=== PATIENT | male | born 1940 | race Caucasian/White ===

== ENCOUNTER 2020-09-21 12:35 | Outpatient (CLI) | payer MEDICARE, SELFPAY ==
--- NOTE | 2020-09-21 12:42 | USCV_ITS ---
Noe Mcclain Age: 80 Gender: M : 1940 Exam Date: 09/21/2020 13:27 Ordering Phys: Harvey Jimenez DO Technologist: Vani Ward Exam Location: [facility]_ Indication: SYSTOLIC MURMUR BP: 130 / 78 HR: 76 Rhythm: Sinus Technical Quality: Adequate MEASUREMENTS (Male / Female) Normal Values 2D ECHO LV Diastolic Diameter PLAX 5.1 cm 4.2 - 5.9 / 3.9 - 5.3 cm LV Systolic Diameter PLAX 3.5 cm LV Chamber Size 3.7 cm IVS Diastolic Thickness 1.1 cm 0.6 - 1.0 / 0.6 - 0.9 cm IVS Systolic Thickness 1.7 cm LVPW Diastolic Thickness 1.5 cm 0.6 - 1.0 / 0.6 - 0.9 cm LVPW Systolic Thickness 2.1 cm RV Chamber Size 3.0 cm LVOT Diameter 2.0 cm LV Ejection Fraction 2D Teich 59.0 % LV Ejection Fraction MOD 2C 45.9 % LV Ejection Fraction 2C AL 47.3 % LA Diameter 5.6 cm LA Width 4.7 cm LA Height 6.1 cm RA Width 3.9 cm RA Height 3.5 cm Aorta at Sinotubular Diameter 3.5 cm M-MODE LV Diastolic Diameter MM 6.0 cm 4.2 - 5.9 / 3.9 - 5.3 cm LV Systolic Diameter MM 4.2 cm LV Ejection Fraction MM Teich 56.8 % IVS Diastolic Thickness MM 1.4 cm 0.6 - 1.0 / 0.6 - 0.9 cm IVS Systolic Thickness MM 1.8 cm LVPW Diastolic Thickness MM 1.3 cm 0.6 - 1.0 / 0.6 - 0.9 cm LVPW Systolic Thickness MM 1.8 cm RV Diastolic Diameter MM 1.6 cm Aortic Annulus Diameter 4.0 cm LA Ao Ratio MM 1.5 MV E Point Septal Separation 0.7 cm DOPPLER AV Peak Velocity 126.0 cm/s LVOT Peak Velocity 98.0 cm/s AV Area Cont Eq vti 2.5 cm squared AV Area Cont Eq pk 2.5 cm squared MV Area PHT 5.4 cm squared Mitral E to A Ratio 2.1 MV E' Velocity 76.5 cm/s Mitral E to MV E' Ratio 9.7 Mitral E to LV E' Lateral Ratio 9.9 Mitral E to LV E' Septal Ratio 9.6 TR Peak Velocity 349.1 cm/s TR Peak Gradient 48.7 mmHg TR Mean Velocity 269.4 cm/s TR Mean Gradient 33.8 mmHg TR Velocity Time Integral 95.3 cm TV Peak E Velocity 90.0 cm/s Right Atrial Pressure 8.0 mmHg Pulmonary Artery Systolic Pressu 56.7 mmHg PV Peak Velocity 69.0 cm/s RV Acceleration Time 0.1 s RV Ejection Time 0.3 s RV AcT/ET 0.3 FINDINGS Left Ventricle Normal left ventricular cavity size. Normal left ventricular systolic function. No regional wall motion abnormalities. Left ventricular ejection fraction is estimated at 56 %. Grade III/IV diastolic dysfunction (restrictive filling pattern), severely elevated filling pressures. Right Ventricle The right ventricle is normal in size and function. Moderate pulmonary hypertension, RVSP 56.7 mmHg. Right Atrium The right atrium is normal in size. Left Atrium Moderately increased left atrial size. Mitral Valve Moderately thickened mitral valve. No mitral valve stenosis. Moderate to severe mitral valve regurgitation. Aortic Valve Moderate aortic valve calcification. No aortic valve stenosis. Moderate aortic valve regurgitation. Tricuspid Valve Mild tricuspid valve regurgitation. Pulmonic Valve Structurally normal pulmonic valve without significant stenosis. There is no pulmonic regurgitation. Pericardium Normal pericardium without effusion. Aorta Normal ascending aorta dimension. CONCLUSIONS 1-Normal left ventricular cavity size. Normal left ventricular systolic function. No regional wall motion abnormalities. Left ventricular ejection fraction is estimated at 56 %. Grade III/IV diastolic dysfunction (restrictive filling pattern), severely elevated filling pressures. 2-Moderately increased left atrial size. 3-Moderately thickened mitral valve. No mitral valve stenosis. Moderate to severe mitral valve regurgitation. 4-Moderate aortic valve calcification. No aortic valve stenosis. Moderate aortic valve regurgitation. 5-Mild tricuspid valve regurgitation. 6-There is no pericardial effusion. 7-The right ventricle is normal in size and function. Moderate pulmonary hypertension, RVSP 56.7 mmHg. 8-Right atrial pressure is around 10 mm of mercury. 9-No significant change since the prior echocardiogram study of 11/02/2017. Maxwell Gonzalez MD (Electronically Signed) Final Date: 23 September 2020 15:00 S
== END 2020-09-21 12:36 | disposition home or self-care (01) ==
LOC: RAD 12:38
PROVIDERS: PCP Internal Medicine; Visit Provider Internal Medicine
DX: R01.1 Cardiac murmur, unspecified (principal); I08.3 Combined rheumatic disorders of mitral, aortic and tricuspid valves
CPT/HCPCS: 93306

== ENCOUNTER → 2020-11-28 11:15 | Outpatient (BNVA) | payer MEDICARE, SELFPAY | PROVIDERS: PCP Internal Medicine; Referring Provider Internal Medicine; Visit Provider Internal Medicine | DX: I34.0 Nonrheumatic mitral (valve) insufficiency (principal); Z20.822 Contact with and (suspected) exposure to COVID-19 | CPT/HCPCS: 87635 ==

== ENCOUNTER 2020-12-04 10:45 | Day surgery (SDC) | payer MEDICARE, SELFPAY ==
[2020-11-29 10:05] VITALS: BMI 22.9
[2020-12-04 11:08] VITALS: BP 159/104; PULSE 84; RESP 20; O2SAT 98
[2020-12-04] MEDS: sodium chloride 0.9% 1,000 ML 30 ML IV (11:20)
--- NOTE | 2020-12-04 12:03 | USCV_ITS ---
Noe Mcclain Age: 80 Gender: M : 1940 Exam Date: 12/04/2020 13:16 Ordering Phys: Nathan Gama M.D ([email or web address]) Technologist: Vani Ward Exam Location: [facility] [place] Indication: MR BP: 159 / 104 HR: 107 Rhythm: Sinus Technical Quality: MEASUREMENTS (Male / Female) Normal Values Medications Complications Proc. Components FINDINGS Left Ventricle LV function is normal Right Ventricle Normal in size and function Right Atrium Normal Left Atrium Left atrium is dilated LA Appendage No thrombus noted in the GUY. IA Septum Normal Mitral Valve Structurally normal. There is moderate to severe, eccenteric, anteriorly directed mitral regurgitation. Aortic Valve Aortic valve is structurally normal and is tricuspid. It has mild aortic regurgitation Tricuspid Valve Normal Pulmonic Valve Not well visualized Pericardium Normal Aorta There is mild atherosclerotic plaque seen in the aorta CONCLUSIONS LV systolic function is normal Moderate to severe mitral regurgitation is noted. Eccenteric anteriorly directed regurgitant jet seen No GUY thrombus Mild aortic regurgitation Nathan Gama MD (Electronically Signed) Final Date: 14 December 2020 13:13 S
--- NOTE | 2020-12-04 12:04 | ANES.PREANE2 ---
Pre-Anesthetic Assessment Pre-Anesthetic Assessment: Height/Weight: Height 1.85 m Weight 78.925 kg Pulse Resp BP Pulse Ox 84 20 H 159/104 98 12/04/20 11:08 12/04/20 11:08 12/04/20 11:08 12/04/20 11:08 Preop Diagnosis: mitral regurg Proposed Procedure: Operation Date: 12/04/20 12:00 Proposed Procedures p CLEMENTINA 21082 i34.0(Not Applicable) - Nathan Gama M.D Was Beta Luis taken within 24 hours: N/A Was Clonidine taken within 24 hours: N/A Last intake: Intake Last Liquid Date 12/04/20 Last Liquid Time 06:00 Last Solid Date 12/03/20 Last Solid Time 21:30 Last Intake: 08:00 Social: Social History: No alcohol and No tobacco Exam: Pre-Anes Outpt Exam: alert and oriented x 3 Airway: Submandibular: WNL Cervical ROM: WNL MP: 1 Pulmonary: Pulmonary: Cough and Sleep apnea CV/HEM: CV/HEM: Afib and HTN : : None reported Hepatic: Hepatic: None reported GI: GI: None reported Metabolic: Metabolic: Thyroid Musc/skel: Musc/skel: OA/DJD Neuropsych: Neuropsych: None reported Anesthetic Plan: ASA status: 3 Anesthesia: Anesthesia Evaluation and MAC Risk of > 500 ml blood loss (7ml/kg in children): No Meds/Allergies Current Medications: Current Medications Generic Name Dose Route Start Last Admin Trade Name Freq PRN Reason Stop Dose Admin Sodium Chloride 1,000 mls @ 30 ml s/hr 12/04/20 11:15 12/04/20 11:20 Sodium Chloride 0.9% IV 12/05/20 11:14 30 mls/hr .Q24H [facility] Administration PFSH Anesthesia PFSH: Medical History (Updated 10/15/20 @ 19:44 by Nathan Gama M.D) Atrial fibrillation Endogenous hyperlipidemia Hypertension Hypothyroidism Mitral regurgitation Peripheral artery insufficiency Peripheral vascular complications Family History (Updated 10/15/20 @ 19:45 by Nathan Gama M.D) Other Hypertension Social History (Updated 10/11/20 @ 13:53 by Sera Heart RN) Smoking and tobacco status: current every day smoker smokeless tobacco Smokeless tobacco user: snuff Data Anesthesia Cardiac Studies: No Data to Display
--- NOTE | 2020-12-04 13:07 | P.HP_ITS ---
Same Day Surgery H&P Indication for Procedure/HPI DATE OF PROCEDURE: December 04, 2020 CHIEF COMPLAINT/INDICATIONFOR SURGICAL PROCEDURE: Moderate to severe mitral regurgitation PREOP DIAGNOSIS: Moderate to severe mitral regurgitation PLANNED PROCEDRUE: Operation Date: 12/04/20 12:00 Proposed Procedures p CLEMENTINA 57618 i34.0(Not Applicable) - Nathan Gama M.D 80-year-old man with past medical history of hypothyroidism, hypertension, atrial fibrillation, mild regurgitation has been referred for evaluation of multiple regurgitation. According to patient he feels a dyspnea on exertion and orthopnea. He denies any chest pain. He had a recent echocardiogram that showed moderate to severe mitral regurgitation. Here for CLEMENTINA to assess for severity of MR ROS CONSTITUTIONAL: No fever chills weight loss or gain or night sweats. [] HEENT: Normocephalic, atraumatic.[] RESPIRATORY: Has shortness of breath CARDIOVASCULAR: Hasshortness of breath, no chest pain, PND, orthopnea, lower extremity edema, presyncope or syncope. [] GI: no nausea vomiting diarrhea. [] METALLURGICAL SPECIALIST: No numbness, tingling, weakness or loss of function in any part of the body. [] MUSCULOSKELETAL: No knee or joint pain or rashes. [] Medications/Allergies* Home Medications Medication Instructions Recorded Confirmed Type amiodarone 200 mg tablet 200 mg PO DAILY 10/11/20 12/04/20 History levothyroxine 75 mcg capsule 75 mcg PO DAILY 10/11/20 12/04/20 History lisinopril 10 mg tablet 10 mg PO DAILY 10/11/20 12/04/20 History magnesium oxide 400 mg (241.3 mg 400 mg PO DAILY 10/11/20 12/04/20 History magnesium) tablet cholecalciferol (vitamin D3) 50 mcg PO DAILY 12/04/20 12/04/20 History [Vitamin D3] Allergies/Adverse Reactions Allergy/AdvReac Type Severity Reaction Status Date / Time No Known Allergies Allergy Unverified 10/11/20 13:45 Current Medications: Generic Name Dose Route Start Last Admin Trade Name Freq PRN Reason Stop Dose Admin Sodium Chloride 1,000 mls @ 30 mls/hr 12/04/20 11:15 12/04/20 11:20 Sodium Chloride 0.9% IV 12/05/20 11:14 30 mls/hr .Q24H [facility] Administration Pertinent History/Comorbid Conditions* Medical History (Updated 10/15/20 @ 19:44 by Nathan Gama M.D) Atrial fibrillation Endogenous hyperlipidemia Hypertension Hypothyroidism Mitral regurgitation Peripheral artery insufficiency Peripheral vascular complications Family History (Updated 10/15/20 @ 19:45 by Nathan Gama M.D) Hypertension Social History Smoking and tobacco status: current every day smoker smokeless tobacco Smokeless tobacco user: snuff Pertinent Exam Findings alert, oriented x 3, clear to auscultation bilaterally and regular rate & rhythm (has systolic murmur, grade 4/6 in intensity) Recommendations Surgery/Procedure today Coding Level of Care Code Acute Purchasing Internship for Lupe Cabrera
[2020-12-04 13:43] VITALS: BP 96/69; PULSE 79; RESP 18; TEMP 36.1; O2SAT 99
[2020-12-04 14:02] VITALS: BP 114/75; PULSE 85; RESP 18; O2SAT 100
--- NOTE | 2020-12-04 14:03 | ANE.PACU2 ---
Inpatient post-anesthesia follow up: Airway intact: Yes Vital signs: Temperature 97.0 F Pulse Rate 79 Respiratory Rate 18 Blood Pressure 96/69 Pulse Oximetry 99 Oxygen Delivery Me thod Nasal Cannula Oxygen Flow Rate 2 Fraction of Inspir ed Oxygen Hydration adequate: Yes Nausea and vomiting: No Pain level: 1 Mental status: Baseline
== END 2020-12-04 14:25 | disposition home or self-care (01) ==
PROVIDERS: PCP Internal Medicine; Visit Provider Internal Medicine
PROC: (CPT 93312; principal; 2020-12-04 12:00)
DX: I34.0 Nonrheumatic mitral (valve) insufficiency (principal); I48.91 Unspecified atrial fibrillation; I10 Essential (primary) hypertension; E03.9 Hypothyroidism, unspecified; Z82.49 Family history of ischemic heart disease and other diseases of the circulatory system; F17.290 Nicotine dependence, other tobacco product, uncomplicated
CPT/HCPCS: 93312; 93318; 93320; 93325; 96360; 96361; J2704; J7030

== ENCOUNTER 2024-11-28 23:05 | Observation (INO) | payer MEDICARE, SELFPAY ==
[2024-11-28 23:07] VITALS: BP 143/79; PULSE 73; RESP 16; TEMP 36.5; O2SAT 98; BMI 16.6
--- NOTE | 2024-11-28 23:09 | XRR_ITS ---
PROCEDURE INFORMATION: Exam: XR Chest Exam date and time: 11/28/2024 11:32 PM Age: 84 years old Clinical indication: Other: Weakness, syncope, fall TECHNIQUE: Imaging protocol: Radiologic exam of the chest. Views: 1 view. COMPARISON: No relevant prior studies available. FINDINGS: Lungs: Central vascular congestion with some chronic interstitial coarsening. Ill-defined bibasilar opacities, atelectasis versus infiltrate. Pleural spaces: Prominent skin fold on the left, not to be mistaken for pneumothorax which is not present. No significant pleural effusion is apparent. Heart/Mediastinum: Heart appears mildly enlarged. Bones/joints: No acute findings. XR/XR chest 1V portable [id number] IMPRESSION: Cardiomegaly with central vascular congestion and mild bibasilar airspace disease, atelectasis versus infiltrate.
--- NOTE | 2024-11-28 23:09 | CTR_ITS ---
PROCEDURE INFORMATION: Exam: CT Head Without Contrast Exam date and time: 11/29/2024 12:05 AM Age: 84 years old Clinical indication: Injury or trauma; Fall; Blunt trauma (contusions or hematomas); Additional info: Fall, head injury TECHNIQUE: Imaging protocol: Computed tomography of the head without contrast. Radiation optimization: All CT scans at this facility use at least one of these dose optimization techniques: automated exposure control; mA and/or kV adjustment per patient size (includes targeted exams where dose is matched to clinical indication); or iterative reconstruction. COMPARISON: No relevant prior studies available. RADIATION DOSE METRICS: Total DLP (mGy-cm): 1139.75 FINDINGS: Brain: No acute infarction, hemorrhage, mass, or extra-axial fluid collection is identified. No midline shift. Chronic white matter microangiopathy and generalized atrophy. Cerebral ventricles: No hydrocephalus. Paranasal sinuses: Paranasal sinuses are grossly clear. Mastoid air cells: Mastoid air cells are grossly clear. Bones: Calvarium appears intact. Soft tissues: Unremarkable. CT/CT head wo con* [id number] IMPRESSION: No acute intracranial abnormality.
--- NOTE | 2024-11-28 23:09 | CTR_ITS ---
PROCEDURE INFORMATION: Exam: CT Lumbar Spine Without Contrast Exam date and time: 11/29/2024 12:08 AM Age: 84 years old Clinical indication: Injury or trauma; Fall; Blunt trauma (contusions or hematomas); Additional info: Low back pain TECHNIQUE: Imaging protocol: Computed tomography of the lumbar spine without contrast. Radiation optimization: All CT scans at this facility use at least one of these dose optimization techniques: automated exposure control; mA and/or kV adjustment per patient size (includes targeted exams where dose is matched to clinical indication); or iterative reconstruction. COMPARISON: CT pelvis wo con [id number] 11/29/2024 12:08 AM RADIATION DOSE METRICS: Total DLP (mGy-cm): 346.5 FINDINGS: Bones/joints: No acute fracture. Normal alignment. No significant disc bulge or herniation. No severe spinal canal stenosis. No significant neural foraminal narrowing. Degenerative disc space narrowing throughout the lumbar spine with vacuum disc changes at L5-S1. chronic superior in inferior endplate depressions at L1. No acute lumbar spine fracture. Pleural spaces: Small right pleural effusion with bibasilar atelectasis Soft tissues: Unremarkable. CT/CT lumbar spine wo con* [id number] IMPRESSION: No acute lumbar spine fracture.
--- NOTE | 2024-11-28 23:09 | CTR_ITS ---
PROCEDURE INFORMATION: Exam: CT Pelvis Without Contrast, Skeleton Exam date and time: 11/29/2024 12:08 AM Age: 84 years old Clinical indication: Injury or trauma; Blunt trauma (contusions or hematomas); B/l hip pain after fall; Additional info: Traumatic pelvic pain TECHNIQUE: Imaging protocol: Computed tomography of the pelvis without contrast. Exam focused on the skeleton. Radiation optimization: All CT scans at this facility use at least one of these dose optimization techniques: automated exposure control; mA and/or kV adjustment per patient size (includes targeted exams where dose is matched to clinical indication); or iterative reconstruction. COMPARISON: CR XR hip LT 2-3V wo/w pel* [id number] 09/01/2022 12:00 PM RADIATION DOSE METRICS: Total DLP (mGy-cm): 230.7 FINDINGS: Urinary bladder: There is moderate thickening of the urinary bladder which could represent bladder wall hypertrophy. Please correlate for any clinical signs or symptoms of urinary tract infection. Bones/joints: Bones are osteopenic in keeping with osteoporosis. There are severe degenerative changes in both hips with severe joint space narrowing with [id number] contact and cystic degenerative changes of the femoral heads in the adjacent acetabulum and with prominent spurring from the joint margins in keeping with severe bilateral osteoarthritis of the hips. No acute fracture is demonstrated. There is degenerative change in the lower lumbar spine with narrowing of the L4-L5 and L5-S1 disc spaces. Soft tissues: There is a 3 x 5 cm sized fluid collection in the right inguinal region consistent with fluid within the right iliopsoas bursa. There is a smaller fluid collection on the left measuring 1 x 2 cm consistent with fluid in the left iliopsoas bursa. CT/CT pelvis wo con [id number] IMPRESSION: 1. There is fluid in the iliopsoas bursa bilaterally which may represent iliopsoas bursitis. Please correlate clinically. 2. Severe osteoarthritis of both hips.
--- NOTE | 2024-11-28 23:10 | ECG_ITS ---
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 Measurements Intervals [place] Rate: 67 P: 0 MI: 0 QRS: 105 QRSD: 154 T: -6 QT: 453 QTc: 482 Interpretive Statements ATRIAL FIBRILLATION RIGHT AXIS DEVIATION [QRS AXIS > 100] INTRAVENTRICULAR CONDUCTION DELAY [130+ ms QRS DURATION] POSSIBLE INFERIOR MYOCARDIAL INFARCTION , PROBABLY OLD [30 ms Q WAVE IN II/aVF] Compared to ECG 05/03/2016 16:16:45 Right-axis deviation now present Myocardial infarct finding still present Electronically Signed On 12-01-2024 09:06:17 CDT by Nathan Gama M.D. [email or web address]
--- NOTE | 2024-11-28 23:10 | W.ED.WEAKNES ---
HPI - Weakness General: Chief complaint: Fall Stated complaint: FALL Time Seen by Provider: 11/28/24 23:06 History of Present Illness: 84-year-old man with a history of mitral regurgitation, atrial fibrillation on no anticoagulation, hypertension and hypothyroidism who presents emergency room by ambulance with generalized weakness and a fall. Apparently on Thursday he passed out and fell down. 's had him in bed since and he has not been able to get up. He has no focal motor deficits. No altered mental status. He complains of pain in his hips bilaterally. He is had a little bit of a headache. No nausea or vomiting. No chest pain. No abdominal pain. Review of Systems Narrative: Constitutional symptoms: Negative except as documented in HPI. Skin symptoms: Negative except as documented in HPI. Eye symptoms: Negative except as documented in HPI. ENMT symptoms: Negative except as documented in HPI. Respiratory symptoms: Negative except as documented in HPI. Cardiovascular symptoms: Negative except as documented in HPI. Gastrointestinal symptoms: Negative except as documented in HPI. Genitourinary symptoms: Negative except as documented in HPI. Musculoskeletal symptoms: Negative except as documented in HPI. Neurologic symptoms: Negative except as documented in HPI. Psychiatric symptoms: Negative except as documented in HPI. Endocrine symptoms: Negative except as documented in HPI. [facility] ED PFSH: Medical History Atrial fibrillation Endogenous hyperlipidemia Hypertension Hypothyroidism Mitral regurgitation Peripheral artery insufficiency Peripheral vascular complications Family History Other Hypertension Physical Exam Narrative: EXAM NARRATIVE: General: Alert, no acute distress. Skin: Warm, dry. Head: Normocephalic, atraumatic. Neck: Supple, trachea midline. Eye: Extraocular movements are intact. Ears, nose, mouth and throat: mucosa moist. Cardiovascular: Regular, Normal peripheral perfusion. Respiratory: Lungs are clear to auscultation, respirations are non-labored, breath sounds are equal, Symmetrical chest wall expansion. Gastrointestinal: Soft, Nontender, Non distended Musculoskeletal: Normal ROM, no deformity. Neurological: Alert and oriented, No focal neurological deficit observed. Psychiatric: Cooperative, appropriate mood & affect. Course Vital Signs: Vital signs: Vital Signs Temperature 97.7 F 11/28/24 23:07 Pulse Rate 69 11/29/24 00:57 Respiratory Rate 16 11/28/24 23:07 Blood Pressure 121/81 11/29/24 00:57 Pulse Oximetry 97 11/29/24 00:57 Oxygen Delivery Me thod Room Air 11/29/24 00:57 MDM - Weakness Medical Decision Making Medical decision making: Differential diagnosis for patient presenting with generalized weakness including but not limited to and based on the above HPI, review of systems and physical exam: Sepsis. Dehydration. Renal failure. Electrolyte abnormalities. Anemia. Congestive heart failure. Hypotension. Coronary syndrome. Hepatitis. Cirrhosis. Infections such as pneumonia, urinary tract infection, [place] illness, Cellulitis, Viral infections including influenza and Covid-19. Workup: labwork and lab/exam driven imaging ordered to evaluate, rule in and rule out above pathologies. Differential diagnosis including but not limited to and based on the above HPI, review of systems and physical exam: patient with fall and head injury and pelvic pain. Subdural hematoma, subarachnoid hemorrhage, concussion, skull fracture. Also would have concern for injury to the lumbar spine or pelvis. Orders placed to evaluate differential diagnosis based on the above differential, HPI and physical exam CT scan of the head was ordered. Lab Review: Laboratory results were reviewed and interpreted by myself the emergency room physician. No leukocytosis. No anemia. He does have some elevation in his BUN with a normal creatinine. No lab work for comparison. proBNP is around 3000. Very mild elevation in LFTs. Chest x-ray: Cardiomegaly with central vascular congestion and mild bibasilar airspace disease. Atelectasis versus infiltrate. CT was ordered to further evaluate this. This was reviewed and interpreted by myself the emergency room physician. I also reviewed the radiology report. CT head: No acute intracranial process. no intracranial hemorrhage, no evidence of infarct. no evidence of acute fracture.This was reviewed and interpreted by myself the ER physician. CT of the lumbar spine: No fracture. Good alignment. No step-offs. This was reviewed and interpreted by myself the emergency room physician. Pelvis CT: Fluid in the iliopsoas bursa which may represent iliopsoas bursitis. He does have some pain in his hips but the seem to be after a fall. This was reviewed and interpreted by myself the emergency room physician. I also reviewed the radiology report. If this continues to be an issue Ortho might need to be consulted. CT of the chest without contrast: Small right pleural effusion. Cardiomegaly and severe coronary artery calcifications. This was reviewed and interpreted by myself the emergency room physician. I also reviewed the radiology report. I reviewed the patient's medical record. Reexamination: Patient remained stable. No increased work of breathing. No altered mental status. No focal motor deficits. Consultation: I spoke with Dr. Schulz who is on-call for the hospitalist service who agrees to admission. Admitting for symptomatic hyponatremia. Sodium is 124. At this point clinically he looks dehydrated. He says he has not been drinking much recently. He does not have any lower extremity swelling. However his proBNP is elevated and he has a small pleural effusion. So at this point I am going to defer to the hospitalist as for the direction of treatment. Assessment and plan: Hyponatremia Fall -I discussed the patient with the hospitalist on-call who is admitting the patient. - Discussed findings and plan with patient. Answered any questions. - All laboratory values were reviewed and interpreted personally by myself, the ER physician - All imaging was reviewed and interpreted personally by myself, the ER physician. - Evaluation and treatment of this problem were appropriate in the emergency setting Lab Data 11/28/24 22:50 11/28/24 22:50 Radiology Impressions Chest X-Ray 11/28/24 23:09 IMPRESSION: Cardiomegaly with central vascular congestion and mild bibasilar airspace disease, atelectasis versus infiltrate. Head CT 11/28/24 23:09 IMPRESSION: No acute intracranial abnormality. Lumbar Spine CT 11/28/24 23:09 IMPRESSION: No acute lumbar spine fracture. Pelvis CT 11/28/24 23:09 IMPRESSION: 1. There is fluid in the iliopsoas bursa bilaterally which may represent iliopsoas bursitis. Please correlate clinically. 2. Severe osteoarthritis of both hips. Chest CT 11/28/24 23:48 IMPRESSION: 1. Small right pleural effusion 2. Cardiomegaly and severe coronary artery calcifications Laboratory Results WBC 5.70 10^3/uL (3.29-11.43) 11/28/24 22:50 RBC 3.98 10^6/uL (3.85-5.65) 11/28/24 22:50 Hgb 13.00 g/dL (11.27-16.99) 11/28/24 22:50 Hct 37.2 % (37-53) 11/28/24 22:50 MCV 93.5 fl (82-101) 11/28/24 22:50 MCH 32.7 pg (27-33) 11/28/24 22:50 MCHC 34.9 g/dL (30-55) 11/28/24 22:50 RDW 14.0 % (12.1-15.1) 11/28/24 22:50 Plt Count 219 10^3/cmm (157-399) 11/28/24 22:50 MPV 10.2 fL (7.4-10.4) 11/28/24 22:50 Neut % (Auto) 66.2 % 11/28/24 22:50 Lymph % (Auto) 15.4 % 11/28/24 22:50 [place] % (Auto) 14.2 % 11/28/24 22:50 Eos % (Auto) 2.8 % 11/28/24 22:50 Baso % (Auto) 0.9 % 11/28/24 22:50 Neut # (Auto) 3.77 10^3/uL (1.8-7.7) 11/28/24 22:50 Lymph # (Auto) 0.9 10^3/uL (0.8-4.8) 11/28/24 22:50 [place] # (Auto) 0.8 10^3/uL (0.2-0.9) 11/28/24 22:50 Eos # (Auto) 0.2 10^3/uL (0.0-0.8) 11/28/24 22:50 Baso # (Auto) 0.1 10^3/uL (0.0-0.1) 11/28/24 22:50 Nucleated RBC % (auto) 0 % 11/28/24:50 Nucleated RBCs # 0.0 /100WBC 11/28/24 22:50 Sodium 124 mmol/L (136-145) L 11/28/24 22:50 Potassium 4.8 mmol/L (3.5-5.1) 11/28/24 22:50 Chloride 88 mmol/L (98-107) L 11/28/24 22:50 Carbon Dioxide 22 mmol/L (22-29) 11/28/24 22:50 Anion Gap 18.8 (5-19) 11/28/24 22:50 BUN 25 mg/dL (8-23) H 11/28/24 22:50 Creatinine 1.0 mg/dL (0.7-1.2) 11/28/24 22:50 GFR Calculation Not Reportable 11/28/24 22:50 Glucose 82 mg/dL (65-115) 11/28/24 22:50 Calculated Osmolality 261 mOsm/kg (285-295) L 11/28/24 22:50 Lactic Acid 1.3 mmol/L (0.5-2.2) 11/28/24 22:50 Calcium 9.5 mg/dL (8.5-10.5) 11/28/24 22:50 Total Bilirubin 1.4 mg/dL (0.15-1.2) H 11/28/24 22:50 AST 86 U/L (0-40) H 11/28/24 22:50 ALT 55 U/L (0-41) H 11/28/24 22:50 Alkaline Phosphatase 105 U/L (40-130) 11/28/24 22:50 Troponin T Baseline 59 ng/L (0-15) H 11/28/24 22:50 Troponin T 120 Minute 60.57 ng/L (0-15) H 11/29/24 00:51 Delta Troponin T 1.57 ABS# (0-10) 11/29/24 00:51 NT-Pro-B Natriuret Pep 2831 pg/mL (0-450) H 11/29/24 00:51 Total Protein 7.3 g/dL (6.6-8.7) 11/28/24 22:50 Albumin 3.4 g/dL (3.5-5.2) L 11/28/24 22:50 Globulin 3.9 g/dL (1.3-4.6) 11/28/24 22:50 Urine Color Yellow (Yellow) 11/29/24 00:44 Urine Appearance Clear (CLEAR) 11/29/24 00:44 Urine pH 6.0 (5-7) 11/29/24 00:44 Ur Specific [place] 1.017 (1.005-1.030) 11/29/24 00:44 Urine Protein Negative (Negative) 11/29/24 00:44 Urine Glucose (UA) Negative (Normal) 11/29/24 00:44 Urine Ketones Trace (Negative) 11/29/24 00:44 Urine Blood Negative (Negative) 11/29/24 00:44 Urine Nitrate Negative (Negative) 11/29/24 00:44 Urine Bilirubin Negative (Negative) 11/29/24 00:44 Urine Urobilinogen 1.0 mg/dL (Negative) 11/29/24 00:44 Ur Leukocyte Esterase Negative (Negative) 11/29/24 00:44 Amorphous Sediment Not Reportable 11/29/24 00:44 Influenza A (PCR) Negative (Negative) 11/28/24 23:24 Influenza Type B (PCR) Negative (Negative) 11/28/24 23:24 RSV (PCR) Negative (Negative) 11/28/24 23:24 SARS-CoV-2 (PCR) Negative (Negative) 11/28/24 23:24 All radiology interpretation(s) finalized by discharge Discharge Plan Discharge Patient Disposition: Admitted As Inpatient Clinical Impression: Hyponatremia, Weakness, Fall, Head injury Condition: Stable Coding Level of Care Code ED Laboratory Specialist for Chg Fwd Related Data Home Medications ?Medication ?Instructions ?Recorded ?Confirmed amiodarone 200 mg tablet 200 mg PO DAILY 10/11/20 12/13/20 levothyroxine 75 mcg capsule 75 mcg PO DAILY 10/11/20 12/13/20 lisinopril 10 mg tablet 10 mg PO DAILY 10/11/20 12/13/20 magnesium oxide 400 mg (241.3 mg 400 mg PO DAILY 10/11/20 12/13/20 magnesium) tablet (MagOx) cholecalciferol (vitamin D3) 50 50 mcg PO DAILY 12/04/20 12/13/20 mcg (2,000 unit) tablet (Vitamin D3) Allergies Allergy/AdvReac Type Severity Reaction Status Date / Time No Known Allergies Allergy Unverified 12/13/20 13:43
[2024-11-28 23:16] VITALS: BP 143/79; PULSE 68; O2SAT 95
[2024-11-28 23:33] LABS: Hematocrit 37.2 % (37-53); Hemoglobin 13.00 g/dL (11.27-16.99); Mean Corpuscular HGB Conc 34.9 g/dL (30-55); Mean Corpuscular Hemoglobin 32.7 pg (27-33); Mean Corpuscular Volume 93.5 fl (82-101); Nucleated Red Blood Cells % 0 %; Platelet Count 219 10^3/cmm (157-399); Red Blood Count 3.98 10^6/uL (3.85-5.65); White Blood Count 5.70 10^3/uL (3.29-11.43)
[2024-11-28 23:46] LABS: Troponin(5th) Baseline 59 ng/L (0-15)
--- NOTE | 2024-11-28 23:48 | CTR_ITS ---
PROCEDURE INFORMATION: Exam: CT Chest Without Contrast; Diagnostic Exam date and time: 11/29/2024 12:08 AM Age: 84 years old Clinical indication: Injury or trauma and abnormal findings; Fall; Abnormal radiologic exam of lung or chest; Blunt trauma (contusions or hematomas); Additional info: Abnormal chest xray TECHNIQUE: Imaging protocol: Diagnostic computed tomography of the chest without contrast. Radiation optimization: All CT scans at this facility use at least one of these dose optimization techniques: automated exposure control; mA and/or kV adjustment per patient size (includes targeted exams where dose is matched to clinical indication); or iterative reconstruction. COMPARISON: CR (CHEST, ) 11/28/2024 11:32 PM RADIATION DOSE METRICS: Total DLP (mGy-cm): 272.7 FINDINGS: Lungs: There is some partial atelectasis posterior right lower lobe. No acute pulmonary infiltrate is identified. Pleural spaces: There is small right pleural effusion. There is no evidence of pneumothorax. Heart: The heart is moderately enlarged. Coronary arteries: There is severe atherosclerotic calcification of the coronary arteries. Lymph nodes: Unremarkable. No enlarged lymph nodes. Vasculature: There is ectasia ascending thoracic aorta measuring 4.3 cm in diameter. Bones/joints: There is no evidence of acute fracture. There are degenerative changes in the thoracic spine with flowing anterior osteophytes in the upper thoracic spine and calcification of the anterior longitudinal ligament in the lower half. Soft tissues: Unremarkable. CT/CT chest wo con [id number] IMPRESSION: 1. Small right pleural effusion 2. Cardiomegaly and severe coronary artery calcifications
[2024-11-28 23:49] LABS: Alanine Aminotransferase 55 U/L (0-41); Albumin Level 3.4 g/dL (3.5-5.2); Alkaline Phosphatase 105 U/L (40-130); Aspartate Amino Transferase 86 U/L (0-40); Blood Urea Nitrogen 25 mg/dL (8-23); Calcium 9.5 mg/dL (8.5-10.5); Carbon Dioxide 22 mmol/L (22-29); Chloride 88 mmol/L (98-107); Creatinine Clr Calc Pharmacy 45.2461; Globulin 3.9 g/dL (1.3-4.6); Glucose 82 mg/dL (65-115); Lactic Sepsis W/Reflex 1.3 mmol/L (0.5-2.2); Osmolality Calculated 261 mOsm/kg (285-295); Sodium 124 mmol/L (136-145); Total Protein 7.3 g/dL (6.6-8.7)
[2024-11-28 23:52] LABS: Anion Gap 18.8 (5-19); Potassium 4.8 mmol/L (3.5-5.1)
[2024-11-29] VITALS (10 sets, daily range): BP systolic 115–132; BP diastolic 66–81; PULSE 57–101; RESP 16–18; TEMP 36.3–36.6; O2SAT 92–99; BMI 17.4
[2024-11-29 00:17] LABS: Respiratory Syncytial Virus Ce NEGATIVE (Negative); SARS-CoV-2 PCR NEGATIVE (Negative)
[2024-11-29 01:02] LABS: Glucose Urine UA Negative (Normal); Nitrate Urine Negative (Negative); Specific Gravity, Urine 1.017 (1.005-1.030)
[2024-11-29 01:13] LABS: Troponin 5 2HR 60.57 ng/L (0-15); Troponin 5 2HR Delta 1.57 ABS# (0-10)
[2024-11-29 01:30] LABS: NT Pro B Type Natriuretic Pept 2831 pg/mL (0-450)
[2024-11-29 02:49] LABS: UA Slide Review UA Slide Review Perf
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
--- NOTE | 2024-11-29 04:34 | USCV_ITS ---
McclainNoe hill Age: 84 Gender: M : 1940 Exam Date: 11/29/2024 04:43 Ordering Phys: Leesa Schulz MD Technologist: CLAUDETTE [place]am [place] [facility] [place]: dizziness, near syncope, History of Afib, HTN BP: 121 / 81 HR: 62 Rhythm: Atrial fibrillation Technical Quality: Adequate MEASUREMENTS (Male / Female) Normal Values 2D ECHO LV Diastolic Diameter PLAX 4.7 cm 4.2 - 5.9 / 3.9 - 5.3 cm IVS Diastolic Thickness 1.6 cm 0.6 - 1.0 / 0.6 - 0.9 cm IVS Systolic Thickness 1.9 cm LVPW Diastolic Thickness 1.6 cm 0.6 - 1.0 / 0.6 - 0.9 cm LVPW Systolic Thickness 1.7 cm LVOT Diameter 1.9 cm LV Ejection Fraction 2D Teich 67.2 % LV Ejection Fraction MOD 4C 70.7 % LV Ejection Fraction MOD 2C 73.6 % LV Ejection Fraction 2C AL 73.9 % LA Diameter 5.3 cm Aorta at Sinotubular Diameter 3.2 cm IVC Diameter 0.9 cm M-MODE LA Ao Ratio MM 1.8 AV Cusp Separation MM 1.8 cm DOPPLER AV Peak Velocity 139.0 cm/s LVOT Peak Velocity 66.0 cm/s AV Area Cont Eq vti 1.3 cm squared AV Area Cont Eq pk 1.4 cm squared MV Peak Velocity 172.0 cm/s MV Area PHT 3.8 cm squared Mitral E to A Ratio 0.0 TV Peak Velocity 323.0 cm/s TR Peak Velocity 349.0 cm/s TR Peak Gradient 48.7 mmHg TV Peak E Velocity 39.0 cm/s PV Peak Velocity 79.0 cm/s FINDINGS Left Ventricle Left ventricle is normal size. LV systolic function is normal with EF of 55-60%. No regional wall motion abnormalities are seen. Mild to moderate left ventricular hypertrophy. Right Ventricle Normal in size and function Right Atrium Normal in size Left Atrium Severely dilated Mitral Valve Mild mitral annular calcification. Moderate mitral regurgitation. Aortic Valve Aortic valve is thickened. Moderate aortic regurgitation. No significant stenosis Tricuspid Valve Mild tricuspid regurgitation. RVSP is 45-50 mmHg. Moderate pulmonary hypertension. Pulmonic Valve Not well visualized Pericardium Normal Aorta Normal in size IVC Appears to be normal CONCLUSIONS LV systolic function is normal with EF of 55-60%. Mild to moderate left ventricular hypertrophy. Left atrial dilation Moderate mitral regurgitation Moderate aortic regurgitation Mild tricuspid regurgitation. Moderate pulmonary hypertension. Nathan Gama MD (Electronically Signed) Final Date: 29 November 2024 08:58 S
[2024-11-29 04:50] LABS: Hematocrit 38.0 % (37-53); Hemoglobin 13.10 g/dL (11.27-16.99); Mean Corpuscular HGB Conc 34.5 g/dL (30-55); Mean Corpuscular Hemoglobin 32.5 pg (27-33); Mean Corpuscular Volume 94.3 fl (82-101); Nucleated Red Blood Cells % 0 %; Platelet Count 195 10^3/cmm (157-399); Red Blood Count 4.03 10^6/uL (3.85-5.65); White Blood Count 4.20 10^3/uL (3.29-11.43)
[2024-11-29 05:05] LABS: Troponin 5 6HR 59.91 ng/L (0-15); Troponin 5 6HR Delta 0.91 ng/L (0-12)
--- NOTE | 2024-11-29 05:10 | ECG_ITS ---
[employer] Test Date: 2024-11-29 Pat Name: Noe Mcclain Department: Room: 275 Gender: Male Conference Director: : 1940 Requested By: Viv Otoole Order Number: [id number] Botello MD: Nathan Gama M.D. Measurements Intervals Martin Rate: 64 P: 0 MT: 0 QRS: 95 QRSD: 151 T: 62 QT: 486 QTc: 502 Interpretive Statements ATRIAL FIBRILLATION BORDERLINE RIGHT AXIS DEVIATION [QRS AXIS > 90] INTRAVENTRICULAR CONDUCTION DELAY [130+ ms QRS DURATION] Compared to ECG 11/28/2024 23:32:36 Myocardial infarct finding no longer present Electronically Signed On 12-01-2024 09:34:04 CDT by Nathan Gama M.D. [email or web address]
[2024-11-29 05:24] LABS: Alanine Aminotransferase 51 U/L (0-41); Albumin Level 3.4 g/dL (3.5-5.2); Alkaline Phosphatase 103 U/L (40-130); Anion Gap 18.5 (5-19); Aspartate Amino Transferase 79 U/L (0-40); Blood Urea Nitrogen 25 mg/dL (8-23); Calcium 9.3 mg/dL (8.5-10.5); Carbon Dioxide 23 mmol/L (22-29); Chloride 89 mmol/L (98-107); Creatinine Clr Calc Pharmacy 43.0911; Free T4 Free Thyroxine 1.14 ng/dL (0.82-1.77); Globulin 3.3 g/dL (1.3-4.6); Glucose 79 mg/dL (65-115); Magnesium 2.0 mg/dL (1.7-2.3); Osmolality Calculated 265 mOsm/kg (285-295); Potassium 4.5 mmol/L (3.5-5.1); Sodium 126 mmol/L (136-145); Thyroid Stimulating Hormone 12.68 uIU/mL (0.27-4.20); Total Protein 6.7 g/dL (6.6-8.7)
[2024-11-29] MEDS: lactulose oral liq 20 gm/30 mL UDC PO (09:01)
--- NOTE | 2024-11-29 11:03 | P.PN_ITS ---
Subjective 2 Subjective: He has been feeling the room spinning around him particularly when he turns his head to either side. Vitals/I&O/Wt Last Vital Signs Temp 97.5 F L 11/29/24 07:46 Pulse 64 11/29/24 07:46 Resp 17 11/29/24 07:46 BP 122/74 11/29/24 07:46 Pulse Ox 97 11/29/24 07:46 O2 Del Method Room Air 11/29/24 02:55 11/28/24 11/29/24 11/29/24 22:59 06:59 14:59 Intake Total 240 / 240 240 / 240 Output Total 200 / 200 Balance 240 / 240 40 / 40 Weight last 48 hrs Weight 59.874 kg Weight 59.874 kg Weight 57.153 kg Physical Exam 2 Const: COMMON NORMALS: patient oriented x3 and alert GENERAL APPEARANCE: c ooperative and frail appearing ORIENTATION/CONSCIOUSNESS: Yes awake HENMT: COMMON NORMALS: oropharynx normal Neck/C-Spine: COMMON NORMALS: no JVD Resp: COMMON NORMALS: normal respiratory effort and clear to auscultation bilaterally AUSCULTATION: clear to auscultation bilaterally Cardio: COMMON NORMALS: no JVD, regular rhythm, S1 normal heart sound present, S2 normal heart sound present and No murmurs present (Cardio) RHYTHM: regular rhythm HEART SOUNDS: S1 normal heart sound present and S2 normal heart sound present GI: COMMON NORMALS: Normal to inspection, nondistended, normoactive bowel sounds present, Soft to palpation and non-tender PALPATION: Yes Soft to palpation Extremity: COMMON NORMALS: no joint enlargement and no pedal edema Neuro: COMMON NORMALS: patient oriented x3 and moves all extremities S ENSORIUM/ORIENTATION: Yes alert OTHER: He is awake and alert, pleasant, conversant, following directions. No facial droop. No difficulty with horizontal tracking. Visual hernandez full to confrontation. FNF somewhat slowed but able to perform. No upper or lower extremity drift. Sensation appears symmetrical although reports some chronic issue with numbness over the left wrist. Skin: COMMON NORMALS: no rashes or lesions noted GENERAL SKIN EXAM: no rashes or lesions noted Data 11/29/24 04:42 11/29/24 04:42 Micro: Microbiology 11/28/24 23:09 Blood Culture - Preliminary Blood SPECIMEN COLLECTED 11/28/24 00:00 Blood Culture - Preliminary Blood SPECIMEN COLLECTED A&P Assessment and plan (1) Hyponatremia: Receiving IV fluid for dehydration, likely hypovolemic hyponatremia. Reassess sodium. Monitor for risk of overly rapid sodium improvement or further hyponatremia. Risk of ODS or brain edema. Reviewed vitals, CBC, CMP, UA This is secondary to severe dehydration likely from heatstroke complexed with patient being on diuretic as well. - Most gently rehydrate, rehydrating with normal saline at 100/h on the x 2 L and reassess. - BUN and creatinine ratio is greater than 20-1 - Osmolarity is 261 - Chloride is 88 patient with contraction alkalosis - As listed above patient undoubtably is very dehydrated causing contraction alkalosis with symptomatology along with hyponatremia - Patient need to be volume repleted on the gently noting a BNP of 2831, must also acknowledged that too many other things can cause elevated BNP. Follow interval chemistry and at 6 patient clinically (2) Fall: Status post fall following dizziness. Reviewed UA, influenza, RSV, COVID PCR, troponin. Echocardiogram reviewed, noted moderate LVH, possibly with dehydration may be at risk of left ventricular outflow obstruction. Noted also moderate MVR moderate AVR mild TVR and moderate pulmonary hypertension. Reports during time of the fall he started falling over backwards, caught himself and door frame try to run forward towards the wheelchair and did not make it. Has been feeling dizzy, room swimming around him [id number] when he turns his head to either direction. Discussed with him obtaining MRI. Requested. Assess for posterior circulation CVA. Therapy assessment. Discussed with nursing, case liner. Continue IV hydration. With rhabdomyolysis. Reassess CK, reassess renal function. - Hold home diuretics (3) Weakness: Receiving IV fluid hydration for dehydration likely hypovolemic hyponatremia. Reassess sodium. Reviewed echocardiogram. Noted moderate LVH Patient's weakness is multifactorial reference hyponatremia, dehydration, contraction alkalosis Follow interval change in lab studies for chemistry PT OT Discussed with physical therapy, will require rehabilitation. Discussed with case liner, arrangements to be undertaken. -java technical manager in consult for all discharge planning most likely for this patient to go to skilled care facility for short-term to help with debility (4) Head injury: Status post fall with head hitting the ground upon having dizziness at the time of the fall - CT head was unremarkable for any bleed. Fall happened 72 hours ago. - Analgesia such as Tylenol in place for patient use (5) Atrial fibrillation: Continue patient's amiodarone - Reviewed TSH and free T4 - Patient is rate controlled does not need any additional rate controlling medication - Reviewed echocardiogram to further evaluate EF and wall motion abnormality. - Patient need to be on anticoagulant but currently high fall risk and risk of bleeding - Son related that the patient was on anticoagulant in the past and decided to stop taking it. His doctor did not stop it (6) Hypertension: Patient is normotensive continue patient lisinopril. (7) Heat stroke: Gentle rehydration Monitor patient clinically (8) Dehydration: Continue IV fluid. Follow-up chemistry, CK Replace any electrolyte imbalances (9) Dizziness: Patient dizziness was due to profound dehydration with hyponatremia. Obtain MRI as above - Continue to gently rehydrate - Reviewed echocardiogram and follow-up with wall motion abnormality and EF (10) Hypochloremic alkalosis: Rehydrate to optimize serum sodium and chloride and manage contraction alkalosis (11) Chronic constipation: Patient has chronic constipation that takes up to 4 days prior to going for the week This time patient had not gone for 7 days likely compounded by the current condition Continue lactulose daily and Colace twice daily and senna--plan to optimize chronic constipation. Plan GI and DVT prophylaxis in place PDMP PDMP Reviewed: Not Reviewed Attestations 2 Medical Necessity Statement*: Continue admission for assessment management of hyponatremia, after dizziness and fall, assessment for possible CVA, post discharge planning and arrangements. and High MDM includes amount and/or complexity of data reviewed/ordered [ resulted lab(s)/test(s), ordered lab(s)/test(s) and other healthcare professional discussion] and described risk of complication, morbidity or mortality of management as documented Diagnoses Hyponatremia E87.1 Fall W19.XXXA Weakness R53.1 Head injury S09.90XA Atrial fibrillation I48.91 Hypertension I10 Heat stroke T67.01XA Dehydration E86.0 Dizziness R42 Hypochloremic alkalosis E87.3 Chronic constipation K59.09
--- NOTE | 2024-11-29 11:03 | MR_ITS ---
WS: [id number] MRI BRAIN WITHOUT CONTRAST HISTORY: assess for cva COMPARISON: CT head 11/29/2024 TECHNIQUE: Diffusion imaging, multiplanar T1, T2 and FLAIR imaging obtained. No evidence for acute infarct or hemorrhage. Howe-white matter differentiation is normal. Mild symmetric volume loss and mild small vessel disease. Scattered T2 and FLAIR signal hyperintensities throughout the white matter. Single hemosiderin focus in the RIGHT centrum semiovale. Mild hippocampal atrophy. Bilateral small cerebellar infarcts. Ventricles and extra-axial spaces are normal. No inferior displacement of cerebellar tonsils. The sella turcica and pituitary gland are unremarkable. Dural venous sinuses and [place] demonstrate no abnormality on this unenhanced studies. Paranasal sinuses: Clear. Mastoid air cells: Normal. Calvarium and scalp: Intact. MR/MR head wo con* [id number] IMPRESSION: 1. No acute infarct or diffusion abnormality. 2. Symmetric volume loss and small vessel disease. 3. Small bilateral cerebellar infarcts. 4. Mild hippocampal atrophy. 5. Single focus of hemosiderin in the RIGHT centrum semiovale.
[2024-11-29 12:16] LABS: Sodium 125 mmol/L (136-145)
[2024-11-29 17:54] LABS: Sodium 126 mmol/L (136-145)
[2024-11-30] VITALS: BP 110/62; PULSE 60; RESP 16; TEMP 36.4; O2SAT 97
[2024-11-30 01:03] LABS: Sodium 128 mmol/L (136-145)
[2024-11-30 04:00] VITALS: BP 107/63; PULSE 55; RESP 16; TEMP 36.4; O2SAT 98
[2024-11-30 05:32] LABS: Hematocrit 35.5 % (37-53); Hemoglobin 12.10 g/dL (11.27-16.99); Mean Corpuscular HGB Conc 34.1 g/dL (30-55); Mean Corpuscular Hemoglobin 32.4 pg (27-33); Mean Corpuscular Volume 94.9 fl (82-101); Nucleated Red Blood Cells % 0 %; Platelet Count 187 10^3/cmm (157-399); Red Blood Count 3.74 10^6/uL (3.85-5.65); White Blood Count 4.09 10^3/uL (3.29-11.43)
[2024-11-30 05:56] LABS: Alanine Aminotransferase 41 U/L (0-41); Albumin Level 3.1 g/dL (3.5-5.2); Alkaline Phosphatase 95 U/L (40-130); Anion Gap 14.9 (5-19); Aspartate Amino Transferase 56 U/L (0-40); Blood Urea Nitrogen 32 mg/dL (8-23); Calcium 9.0 mg/dL (8.5-10.5); Carbon Dioxide 24 mmol/L (22-29); Chloride 94 mmol/L (98-107); Creatinine Clr Calc Pharmacy 36.4617; Globulin 3.6 g/dL (1.3-4.6); Glucose 99 mg/dL (65-115); Osmolality Calculated 273 mOsm/kg (285-295); Potassium 4.9 mmol/L (3.5-5.1); Sodium 128 mmol/L (136-145); Total Protein 6.7 g/dL (6.6-8.7)
[2024-11-30 06:00] VITALS: PULSE 60
[2024-11-30 08:00] VITALS: BP 131/69; PULSE 88; RESP 16; TEMP 36.4; O2SAT 94
[2024-11-30] MEDS: lactulose oral liq 20 gm/30 mL UDC PO (09:30)
--- NOTE | 2024-11-30 10:03 | PC.SOCIAL ---
IMM Update pg 2 of IMM updated and reviewed w/ patient. Copy provided and copy dated, initialed and placed in chart.
[2024-11-30 11:45] VITALS: BP 133/75; PULSE 60; RESP 16; TEMP 36.6; O2SAT 98
--- NOTE | 2024-11-30 12:54 | P.PN_ITS ---
Subjective 2 Subjective: He is doing well and is ready for discharge. He is waiting on authorization Vitals/I&O/Wt Last Vital Signs Temp 97.8 F 11/30/24 11:45 Pulse 60 11/30/24 11:45 Resp 16 11/30/24 11:45 BP 133/75 11/30/24 11:45 Pulse Ox 98 11/30/24 11:45 O2 Del Method Room Air 11/30/24 11:45 11/29/24 11/30/24 11/30/24 22:59 06:59 14:59 Intake Total 240 / 1840 1000 / 2840 240 / 240 Balance 240 / 1640 1000 / 2640 240 / 240 Weight last 48 hrs Weight 59.874 kg Weight 59.874 kg Weight 57.153 kg Data 11/30/24 04:41 11/30/24 04:41 Micro: Microbiology 11/28/24 23:09 Blood Culture - Preliminary Blood NEGATIVE TO DATE 11/28/24 00:00 Blood Culture - Preliminary Blood NEGATIVE TO DATE A&P Assessment and plan (1) Hyponatremia: Hypovolemic hyponatremia Secondary to severe dehydration from heatstroke. He was also on lasix Sodium 124 mmol/L on admission, 128 today Giving NS for 1 L today primary for elevated Cr, will likely give NaCl tabs Monitor sodium likely hypovolemic hyponatremia. Reassess sodium. Monitor for risk of overly rapid sodium improvement or further hyponatremia. Risk of ODS or brain edema. Reviewed vitals, CBC, CMP, UA This is secondary to severe dehydration likely from heatstroke complexed with patient being on diuretic as well. - Most gently rehydrate, rehydrating with normal saline at 100/h on the x 2 L and reassess. - BUN and creatinine ratio is greater than 20-1 - Osmolarity is 261 - Chloride is 88 patient with contraction alkalosis - As listed above patient undoubtably is very dehydrated causing contraction alkalosis with symptomatology along with hyponatremia - Patient need to be volume repleted on the gently noting a BNP of 2831, must also acknowledged that too many other things can cause elevated BNP. Follow interval chemistry and at 6 patient clinically (2) Fall: Status post fall following dizziness. Reviewed UA, influenza, RSV, COVID PCR, troponin. Echocardiogram reviewed, noted moderate LVH, possibly with dehydration may be at risk of left ventricular outflow obstruction. Noted also moderate MVR moderate AVR mild TVR and moderate pulmonary hypertension. Reports during time of the fall he started falling over backwards, caught himself and door frame try to run forward towards the wheelchair and did not make it. Has been feeling dizzy, room swimming around him [id number] when he turns his head to either direction. Discussed with him obtaining MRI. Requested. Assess for posterior circulation CVA. Therapy assessment. Discussed with nursing, corrections caseworker. Continue IV hydration. With rhabdomyolysis. Reassess CK, reassess renal function. - Hold home diuretics (3) Weakness: Receiving IV fluid hydration for dehydration likely hypovolemic hyponatremia. Reassess sodium. Reviewed echocardiogram. Noted moderate LVH Patient's weakness is multifactorial reference hyponatremia, dehydration, contraction alkalosis Follow interval change in lab studies for chemistry PT OT Discussed with physical therapy, will require rehabilitation. Discussed with corrections caseworker, arrangements to be undertaken. -senior restaurant manager in consult for all discharge planning most likely for this patient to go to skilled care facility for short-term to help with debility (4) Head injury: Status post fall with head hitting the ground upon having dizziness at the time of the fall - CT head was unremarkable for any bleed. Fall happened 72 hours ago. - Analgesia such as Tylenol in place for patient use (5) Atrial fibrillation: Continue patient's amiodarone - Reviewed TSH and free T4 - Patient is rate controlled does not need any additional rate controlling medication - Reviewed echocardiogram to further evaluate EF and wall motion abnormality. - Patient need to be on anticoagulant but currently high fall risk and risk of bleeding - Son related that the patient was on anticoagulant in the past and decided to stop taking it. His doctor did not stop it (6) Hypertension: Patient is normotensive continue patient lisinopril. (7) Heat stroke: Gentle rehydration Monitor patient clinically (8) Dehydration: Continue IV fluid. Follow-up chemistry, CK Replace any electrolyte imbalances (9) Dizziness: Patient dizziness was due to profound dehydration with hyponatremia. Obtain MRI as above - Continue to gently rehydrate - Reviewed echocardiogram and follow-up with wall motion abnormality and EF (10) Hypochloremic alkalosis: Rehydrate to optimize serum sodium and chloride and manage contraction alkalosis (11) Chronic constipation: Patient has chronic constipation that takes up to 4 days prior to going for the week This time patient had not gone for 7 days likely compounded by the current condition Continue lactulose daily and Colace twice daily and senna--plan to optimize chronic constipation. Plan GI and DVT prophylaxis in place PDMP PDMP Reviewed: Not Reviewed Coding Level of Care Code Acute Code for Chg Fwd Diagnoses Hyponatremia E87.1 Fall W19.XXXA Weakness R53.1 Head injury S09.90XA Atrial fibrillation I48.91 Hypertension I10 Heat stroke T67.01XA Dehydration E86.0 Dizziness R42 Hypochloremic alkalosis E87.3 Chronic constipation K59.09
--- NOTE | 2024-11-30 15:11 | PM.DCS ---
Discharge Providers Date of Admission: 11/29/24 01:28 Date of Discharge: November 30, 2024 Attending Provider at Admission: Leesa Schulz MD Attending Provider at Discharge: Madalyn Torres MD Primary Care Provider: Lucas Barrera MD Diagnoses at Discharge Discharge Diagnosis (1) Hyponatremia: Details from hospital stay: Started on sodium chloride tabs for a week. Follow-up labs in 1 week. Status: Acute (2) Fall: Status: Acute Qualifiers: Encounter type: initial encounter Qualified Code(s): W19.XXXA - Unspecified fall, initial encounter (3) Weakness: Status: Acute (4) Head injury: Status: Resolved Qualifiers: Encounter type: initial encounter Qualified Code(s): S09.90XA - Unspecified injury of head, initial encounter (5) Atrial fibrillation: Status: Chronic Qualifiers: Atrial fibrillation type: paroxysmal Qualified Code(s): I48.0 - Paroxysmal atrial fibrillation (6) Hypertension: Status: Chronic Qualifiers: Hypertension type: primary hypertension Qualified Code(s): I10 - Essential (primary) hypertension (7) Heat stroke: Status: Resolved Qualifiers: Encounter type: initial encounter Qualified Code(s): T67.01XA - Heatstroke and sunstroke, initial encounter (8) Dehydration: Status: Resolved (9) Dizziness: Status: Acute (10) Hypochloremic alkalosis: Status: Acute (11) Chronic constipation: Details from hospital stay: Started bowel regimen Status: Chronic (12) Hypothyroidism: Details from hospital stay: Follow-up TFTs in 4 weeks. Status: Acute (13) Mitral regurgitation: Details from hospital stay: Murmur present on exam Echocardiogram showed moderate mitral regurgitation Status: Acute (14) Aortic regurgitation: Details from hospital stay: Echocardiogram showed moderate aortic regurgitation Status: Acute Reason for Visit Reason for Visit: FALL Brief History: This is an 84-year-old male with paroxysmal atrial fibrillation, hypertension, mitral regurgitation, hypothyroidism, osteoarthritis, and chronic constipation who presented with generalized weakness, dizziness and fall at home. He fell at home on 11/25/2024. It was very hot on the day that he fell and felt like he had suffered from heatstroke. He has not been able to get up out of bed since then. He reported generalized body aches on admission. CT head and cervical spine did not show any acute injury. Labs showed hyponatremia with sodium of 124. He also had elevated CK level, elevated LFTs, and elevated troponin. Hospital Course Hospital Course Serum sodium was 124 mmol/L. There is no recent baseline to compare to. This was felt to be secondary to dehydration in setting of heatstroke and use of diuretics. He was started on IV fluids and his sodium is improved to 128 mmol/L. He has been started on sodium chloride tabs. Patient to continue this for a week and recheck labs. He has been having dizziness. MRI was negative for any acute intracranial process. His CK was elevated but this has improved with IV fluids. His creatinine had increased to 1.3 on day of discharge. His lisinopril was held. Check labs and restart if stable. His troponin was mildly elevated but remained stable. His ECG did not show any acute ischemic changes. Echocardiogram showed normal LVEF of 55 to 60%. There was no wall motion abnormalities. He does have moderate aortic and mitral regurgitation. He is saturating well on room air and no evidence of hypervolemia on exam. He was not on anticoagulation for his A-fib. Apixaban has been started. His LFTs were elevated on admission but have normalized except for AST which has improved. He has hypothyroidism and his TSH was elevated. He was taking 88 mcg daily of levothyroxine. This has been increased to 100 mcg daily. Check TFTs in 4 to 6 weeks. Imaging showed severe osteoarthritis of both hips. Consider outpatient orthopedic surgery referral if develops intractable hip pain. He has generalized weakness and unsteadiness. He is standby assist with rolling walker. He was discharged to SNF for short-term rehab. Physical Exam Narrative: GEN: Alert, no acute distress HEENT: Normocephalic, atraumatic, PERRLA, EOMI Neck: Supple Cardio: Murmur present, regular rate and rhythm Abdomen: Soft, nontender, nondistended, normoactive bowel sounds Extremity: No edema, full ROM Neuro: AAO x 3, no focal deficits Discharge Data Studies Completed and Pending Completed Studies During Hospitalization Category Date Time Status CT chest wo con [id number] Stat Cat Scan 11/28/24 23:[address] head wo con* [id number] Stat Cat Scan 11/28/24 23:[address] lumbar spine wo con* [id number] Stat Cat Scan 11/28/24 23:[address] pelvis wo con [id number] Stat Cat Scan 11/28/24 23:09 Completed XR chest 1V portable [id number] Stat Exams 11/28/24 23:09 Completed MR head wo con* [id number] Routine MRI 11/29/24 11:03 Completed CV. echo complete* [id number] Routine Ultrasound 11/29/24 04:34 Completed Pending at discharge Category Date Time Status Blood Culture Stat Lab 11/28/24 23:09 Results Magnesium AM LABS Lab 12/01/24 04:00 Ordered Renal Function Panel AM LABS Lab 12/01/24 04:00 Ordered Radiology Impressions Chest X-Ray 11/28/24 23:09 IMPRESSION: Cardiomegaly with central vascular congestion and mild bibasilar airspace disease, atelectasis versus infiltrate. Head CT 11/28/24 23:09 IMPRESSION: No acute intracranial abnormality. Lumbar Spine CT 11/28/24 23:09 IMPRESSION: No acute lumbar spine fracture. Pelvis CT 11/28/24 23:09 IMPRESSION: 1. There is fluid in the iliopsoas bursa bilaterally which may represent iliopsoas bursitis. Please correlate clinically. 2. Severe osteoarthritis of both hips. Chest CT 11/28/24 23:48 IMPRESSION: 1. Small right pleural effusion 2. Cardiomegaly and severe coronary artery calcifications Head MRI 11/29/24 11:03 IMPRESSION: 1. No acute infarct or diffusion abnormality. 2. Symmetric volume loss and small vessel disease. 3. Small bilateral cerebellar infarcts. 4. Mild hippocampal atrophy. 5. Single focus of hemosiderin in the RIGHT centrum semiovale. Laboratory Results WBC 4.09 10^3/uL (3.29-11.43) 11/30/24 04:41 RBC 3.74 10^6/uL (3.85-5.65) L 11/30/24 04:41 Hgb 12.10 g/dL (11.27-16.99) 11/30/24 04:41 Hct 35.5 % (37-53) L 11/30/24 04:41 MCV 94.9 fl (82-101) 11/30/24 04:41 MCH 32.4 pg (27-33) 11/30/24 04:41 MCHC 34.1 g/dL (30-55) 11/30/24 04:41 RDW 14.4 % (12.1-15.1) 11/30/24 04:41 Plt Count 187 10^3/cmm (157-399) 11/30/24 04:41 MPV 10.0 fL (7.4-10.4) 11/30/24 04:41 Neut % (Auto) 66.8 % 11/30/24 04:41 Lymph % (Auto) 13.7 % 11/30/24 04:41 Will % (Auto) 13.7 % 11/30/24 04:41 Eos % (Auto) 4.6 % 11/30/24 04:41 Baso % (Auto) 1.0 % 11/30/24 04:41 Neut # (Auto) 2.73 10^3/uL (1.8-7.7) 11/30/24 04:41 Lymph # (Auto) 0.6 10^3/uL (0.8-4.8) L 11/30/24 04:41 Will # (Auto) 0.6 10^3/uL (0.2-0.9) 11/30/24 04:41 Eos # (Auto) 0.2 10^3/uL (0.0-0.8) 11/30/24 04:41 Baso # (Auto) 0.0 10^3/uL (0.0-0.1) 11/30/24 04:41 Nucleated RBC % (auto) 0 % 11/30/24 04:41 Nucleated RBCs # 0.0 /100WBC 11/30/24 04:41 Sodium 128 mmol/L (136-145) L 11/30/24 04:41 Potassium 4.9 mmol/L (3.5-5.1) 11/30/24 04:41 Chloride 94 mmol/L (98-107) L 11/30/24 04:41 Carbon Dioxide 24 mmol/L (22-29) 11/30/24 04:41 Anion Gap 14.9 (5-19) 11/30/24 04:41 BUN 32 mg/dL (8-23) H 11/30/24 04:41 Creatinine 1.3 mg/dL (0.7-1.2) H 11/30/24 04:41 GFR Calculation Not Reportable 11/30/24 04:41 Glucose 99 mg/dL (65-115) 11/30/24 04:41 Calculated Osmolality 273 mOsm/kg (285-295) L 11/30/24 04:41 Lactic Acid 1.3 mmol/L (0.5-2.2) 11/28/24 22:50 Calcium 9.0 mg/dL (8.5-10.5) 11/30/24 04:41 Phosphorus 3.6 mg/dL (2.5-4.5) 11/29/24 04:42 Magnesium 2.0 mg/dL (1.7-2.3) 11/29/24 04:42 Total Bilirubin 0.7 mg/dL (0.15-1.2) 11/30/24 04:41 AST 56 U/L (0-40) H 11/30/24 04:41 ALT 41 U/L (0-41) 11/30/24 04:41 Alkaline Phosphatase 95 U/L (40-130) 11/30/24 04:41 Creatine Kinase 274 U/L (39-308) 11/30/24 04:41 Troponin T Baseline 59 ng/L (0-15) H 11/28/24 22:50 Troponin T 120 Minute 60.57 ng/L (0-15) H 11/29/24 00:51 Delta Troponin T 1.57 ABS# (0-10) 11/29/24 00:51 Troponin T Hi Sens 6Hr 59.91 ng/L (0-15) H 11/29/24 04:42 Troponin T Hi Sens 6Hr Delta 0.91 ng/L (0-12) 11/29/24 04:42 NT-Pro-B Natriuret Pep 2831 pg/mL (0-450) H 11/29/24 00:51 Total Protein 6.7 g/dL (6.6-8.7) 11/30/24 04:41 Albumin 3.1 g/dL (3.5-5.2) L 11/30/24 04:41 Globulin 3.6 g/dL (1.3-4.6) 11/30/24 04:41 TSH 12.68 uIU/mL (0.27-4.20) H 11/29/24 04:42 Free T4 1.14 ng/dL (0.82-1.77) 11/29/24 04:42 Urine Color Yellow (Yellow) 11/29/24 00:44 Urine Appearance Clear (CLEAR) 11/29/24 00:44 Urine pH 6.0 (5-7) 11/29/24 00:44 Ur Specific [place] 1.017 (1.005-1.030) 11/29/24 00:44 Urine Protein Negative (Negative) 11/29/24 00:44 Urine Glucose (UA) Negative (Normal) 11/29/24 00:44 Urine Ketones Trace (Negative) 11/29/24 00:44 Urine Blood Negative (Negative) 11/29/24 00:44 Urine Nitrate Negative (Negative) 11/29/24 00:44 Urine Bilirubin Negative (Negative) 11/29/24 00:44 Urine Urobilinogen 1.0 mg/dL (Negative) 11/29/24 00:44 Ur Leukocyte Esterase Negative (Negative) 11/29/24 00:44 Urine RBC 0-2 /hpf (0-2) 11/29/24 00:44 Urine WBC 0-5 /hpf (0-5) 11/29/24 00:44 Ur Squamous Epith Cells 0-5 /hpf (0-5) 11/29/24 00:44 Amorphous Sediment Not Reportable 11/29/24 00:44 Urine Bacteria None seen /hpf (NONE) 11/29/24 00:44 Hyaline Casts 3.71 /lpf 11/29/24 00:44 Influenza A (PCR) Negative (Negative) 11/28/24 23:24 Influenza Type B (PCR) Negative (Negative) 11/28/24 23:24 RSV (PCR) Negative (Negative) 11/28/24 23:24 SARS-CoV-2 (PCR) Negative (Negative) 11/28/24 23:24 Vitals Last Vital Signs Temp 97.8 F 11/30/24 11:45 Pulse 60 11/30/24 11:45 Resp 16 11/30/24 11:45 BP 133/75 11/30/24 11:45 Pulse Ox 98 11/30/24 11:45 O2 Del Method Room Air 11/30/24 11:45 Discharge Plan Discharge Patient Disposition: Xfer SNF Condition: Stable Prescriptions: New docusate sodium 100 mg Capsule 100 mg PO BID 30 Days Qty: 60 0RF bisacodyl 5 mg Tablet,Delayed Release (Dr/Ec) 10 mg PO DAILY PRN (Reason: Constipation (see protocol)) 30 Days Qty: 30 0RF sodium chloride 1,000 mg Tablet,Soluble 1,000 mg PO BID 7 Days Qty: 14 0RF Eliquis 5 mg Tablet 5 mg PO BID@0900,2100 30 Days Qty: 60 0RF Continued magnesium oxide [MagOx] 400 mg (241.3 mg magnesium) tablet 400 mg PO DAILY amiodarone 200 mg tablet 200 mg PO DAILY cholecalciferol (vitamin D3) [Vitamin D3] 50 mcg (2,000 unit) Tablet 50 mcg PO DAILY fluorouracil 0.5 % Cream 1 applic TOPICAL BID Rx Instructions: for 2 weeks mupirocin 2 % Ointment 1 applic TOPICAL BID Changed levothyroxine 88 mcg tablet 100 mcg PO QAM Qty: 30 0RF Held furosemide 40 mg tablet 40 mg PO DAILY PRN (Reason: weight gain of 3 to 4 lbs) Hold Instructions: Resume on 12/05/24. No Action lisinopril 10 mg tablet 10 mg PO DAILY Discharge Orders: Discharge Order (Routine); Ordered 11/30/24 Ordered By: Madalyn Torres Other Ambulatory Orders: Renal Function Panel (Routine) Timeframe: 1 Week Facility: [facility] - Location: Lab - Main Lab Ordered By: Madalyn Torres Free T4 Free Thyroxine (Routine) Timeframe: 1 Month Facility: [facility] - Location: Lab - Main Lab Ordered By: Madalyn Torres Thyroid Stimulating Hormone (Routine) Timeframe: 1 Month Facility: [facility] - Location: Lab - Main Lab Ordered By: Madalyn Torres Referrals: [facility] [Outside] Harvey Jimenez DO [Physician, Internal Medicine] Discharge Diet: Regular Discharge Activity: Use walker/crutches as instructed Patient Instructions: Laxative, Stool Softeners (By mouth) (Doculax, Colace, Colace Clear, DSS), Bisacodyl (By mouth) (Alophen, Biscolax, Correctol, Dulcolax), Apixaban (By mouth) (Eliquis), Sodium Chloride (By mouth), A-fib (Atrial Fibrillation) (DC), Constipation (DC), Hyponatremia (DC), Opioid Safety, Patient Portal & [facility] Instructions Discharge Attestations Time Spent in Discharge Care*: greater than 30 min Quality Metrics Clinical Quality Measures [ No reported AMI, CVA or VTE this stay] Coding Level of Care Code Acute Code for Chg Fwd Diagnoses Hyponatremia E87.1 Fall, initial encounter W19.XXXA Encounter type: initial encounter Weakness R53.1 Injury of head, initial encounter S09.90XA Encounter type: initial encounter Paroxysmal atrial fibrillation I48.0 Atrial fibrillation type: paroxysmal Primary hypertension I10 Hypertension type: primary hypertension Heat stroke, initial encounter T67.01XA Encounter type: initial encounter Dehydration E86.0 Dizziness R42 Hypochloremic alkalosis E87.3 Chronic constipation K59.09 Hypothyroidism E03.9 Mitral regurgitation I34.0 Aortic regurgitation I35.1
[2024-11-30 15:59] VITALS: BP 123/60; PULSE 65; RESP 16; TEMP 36.6; O2SAT 95
--- OUTSIDE RECORDS SUMMARY | 2024-12-02 09:18 | XMS_ITS | Data Portability ---
Author Organization [facility] [address] [facility] Mariusz Aly, [facility] Address [address] [facility] [address] [place] [address] Care Team Providers Care Device Repair Technician Name Role Phone HUMA BARRERA Primary Care Provider Assessment Encounter Date Assessment Date Assessment LastModified by Organization Details LastModified Time 06/03/2024 06/03/2024 We will have the ambulatory care coordinator come and discuss options with the patient such as Meals on Wheels and other living situations like assisted living versus [facility]. Patient may even qualify for Medicaid based on income which would assist him with some of the services [email or web address] Not available 06/04/2024 08:54:37 Plan of Treatment Reminders Order Date Submit Date Provider Last Modified By Organization Details Last Modified Time Details Appointments None recorded. Lab CMP, serum or plasma 2023 [facility], [address] [employer], [address], [address], 16:41:22 CBC 2023 [facility], [address] [employer], [facility] 1, [place], [address], 16:28:41 thyrotropin , QN, serum or plasma 2023 [facility], [address], [facility] 1, [place], [address], 16:44:51 ESR (erythrocyt e sedimentati on rate), blood 2023 024 [facility] ([facility]), [address] [place], [address], 4 13:55:30 HbA1c (hemoglobin A1c), blood [address] ([facility]), [address] [place], [address], 4 18:36:25 CMP, serum or plasma 2023 024 [address] [facility], [address], [address], 4 18:36:25 lipid panel, blood 2023 024 [address], [address] [place] [address], [address], [address], 4 18:36:25 CBC 2023 024 [address] [facility], [address] [place] [address], [address], [address], 4 18:36:25 TSH, serum or plasma [address] ([facility]), [address] [place], [address], 4 18:36:25 hemoglobin A1C/hemoglo bin total, QN, blood 2022 023 [facility], [address] [place] [address], [facility] [address], [address], 3 12:48:42 BMP, serum or plasma 2022 023 [facility], [address], [place], [address], 3 11:29:24 TSH, serum or plasma 2022 023 [facility] [address] [place], [address], 3 14:01:35 Referral home health referral 2024 025 [email or web address] 2 [facility], [address] [place] [address], [address], 5 09:19:56 home health referral 2023 024 [email or web address] 0 [facility], [address] [place] [address], [address], 5 17:12:07 Procedures None recorded. Surgeries None recorded. Imaging US, echocardiog bakari, transthorac ic, complete 2022 023 [email or web address] 2 [facility] (Scheduling Orders), [address] [place], [address], 13:43:15 Medication Orders None recorded. Patient TargetsNo targets recorded. Patient Instructions Encounter Date Encounter Id Patient Instructions Last Modified By Organization Details Last Modified Time 03/04/2023 [id number] hypothyroidism: care instructions [email or web address] Not available 03/04/2023 12:14:18 tumeric has helped joints swelling much better as he is hydrating much more bp controlled [email or web address] Not available 03/04/2023 12:11:02 09/09/2023 [id number] labs reviewed an d excellent he is weaker and balance is worse; muscles painful; will r/o pmr with esr now Not available 09/09/2023 12:10:32 05/02/2024 [id number] not managing wel l at home; discussed options including [facility] vs moving closer to son he has lost diuretic script or some time and breathing is worse labs today, but will restart lasix not managing medicines, not eating well good discussion with son about 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 5 Not Available [facility] [address] [address], [place], [address], 03/04/2023 12:48:42 03/04/2003/05/2023 BASIC METAB OLIC PANEL glucose 76 mg/dL 65-99 normal Fasti ng refer ence inter jericho Not Available [facility] [address] [address] [place], [address], 03/05/2023 11:29:24 03/04/2003/05/2023 BASIC METAB OLIC PANEL urea nitrogen (BUN) 26 mg/dL 7-25 high Not Available [employer] [address], [address], 03/05/2023 11:29:24 03/04/2003/05/2023 BASIC METAB OLIC PANEL creatinine 1.40 mg/dL 0.70-1 .22 high Not Available [employer] [address] [place], [address], 03/05/2023 11:29:24 03/04/20 23 03/05/2023 BASIC METAB OLIC PANEL eGFR 50 mL/mi n/1.7 3m2 > or = 60 low Not Available [address], [address], 03/05/2023 11:29:24 03/04/20 23 03/05/2023 BASIC METAB OLIC PANEL BUN/creatini ne ratio 19 (calc ) 6-22 normal Not Available [address], [address], 03/05/2023 11:29:24 03/04/20 23 03/05/2023 BASIC METAB OLIC PANEL sodium 129 mmol/ L 135-14 6 low Not Available [address], [address], 03/05/2023 11:29:24 03/04/20 23 03/05/2023 BASIC METAB OLIC PANEL potassium 4.0 mmol/ L 3.5-5. 3 normal Not Available [address], [address], 03/05/2023 11:29:24 03/04/20 23 03/05/2023 BASIC METAB OLIC PANEL chloride 95 mmol/ L 98-110 low Not Available [address], [address], 03/05/2023 11:29:24 03/04/20 23 03/05/2023 BASIC METAB OLIC PANEL carbon dioxide 22 mmol/ L 20-32 normal Not Available [address], [address], 03/05/2023 11:29:24 03/04/20 23 03/05/2023 BASIC METAB OLIC PANEL calcium 9.7 mg/dL 8.6-10 .3 normal Not Available [address], [address], 03/05/2023 11:29:24 03/04/20 23 03/04/2023 TSH, serum or plasm a TSH 2.25 uIU/m L 0.49-3 .82 Not Available [facility] ([facility]) [address] [place], [address], 03/04/2023 12:09:05 09/03/19 24 09/03/2023 CBC WBC 5.7 x10 4.5-10 .5 Not Available [facility] [address] [facility] [address] [address], [place], [address], 09/03/2023 14:13:19 09/03/19 24 09/03/2023 CBC RBC 3.88 x10 4.30-5 .90 low Not Available [facility] [address] [facility] 1, [place], [address], 09/03/2023 14:13:19 09/03/19 24 09/03/2023 CBC HGB 13.2 g/dL 13.5-1 8.0 low Not Available [address] [address] [address], [place], [address], 09/03/2023 14:13:19 09/03/19 24 09/03/2023 CBC HCT 37.7 % 35.0-6 0.0 Not Available [facility] [address] [facility], [place], [address], 09/03/2023 14:13:19 09/03/19 24 09/03/2023 CBC MCV 97.2 fL 80.0-9 9.9 Not Available [facility] [address] [facility] Sarah [facility] 1, [place], [address], 09/03/2023 14:13:19 09/03/19 24 09/03/2023 CBC MCH 34.0 pg 27.0-3 2.0 high Not Available [facility] [address] [facility] 1, [place], [address], 09/03/2023 14:13:19 09/03/19 24 09/03/2023 CBC MCHC 35.0 g/dL 32.0-3 6.0 Not Available [facility] [address] [facility] 1, [place], [address], 09/03/2023 14:13:19 09/03/1909/03/2023 CBC RDW 15.1 % 11.5-1 4.5 high Not Available [address] [address] [facility] 1, [place], [address], 09/03/2023 14:13:19 09/03/1909/03/2023 CBC plt 218.0 x10 150.0- 451.0 Not Available [address] [address] [facility] 1, [place], [address], 09/03/2023 14:13:09/03/1909/03/2023 CBC lymphocytes % 19.3 % 20.0-5 0.0 low Not Available [facility] [address] [facility] 1, [place], [address], 09/03/2023 14:13:19 09/03/1909/03/2023 CBC granulcytes % 64.9 % 30.0-7 0.0 Not Available [facility] [address] [facility] 1, [place], [address], 09/03/2023 14:13:19 09/03/1909/03/2023 CBC monocytes % 13.5 % 2.0-10 .0 high Not Available [facility] [address] [facility] 1, [place], [address], 09/03/2023 14:13:19 09/03/1909/03/2023 CBC granulcytes# 3.7 x10 Not Ofelia ilable [facility] [address] [facility] 1, [place], [address], 09/03/2023 14:13:19 09/03/19 24 09/03/2023 CBC lymphocytes # 1.1 x10 Not Available [facility] [address] [address], [place], [address], 09/03/2023 14:13:19 09/03/19 24 09/03/2023 CBC monocytes # 0.8 x10 Not Avai lable [facility] [address] [address], [place], [address], 09/03/2023 14:13:19 09/03/19 24 09/03/2023 CMP (MALE ) glucose 88.0 mg/dL 60.0-9 9.0 Not Available [facility] [address] [address], [place], [address], 09/03/2023 15:16:09 09/03/19 24 09/03/2023 CMP (MALE ) BUN (blood urea nitrogen) 38.0 mg/dL 10.0-2 6.0 high Not Available [facility] [address] [address], [place], [address], 09/03/2023 15:16:09 09/03/19 24 09/03/2023 CMP (MALE ) creatinine (serum) 1.2 mg/dL 0.4-1. 5 Not Available [facility] [address] [address], [place], [address], 09/03/2023 15:16:09 09/03/19 24 09/03/2023 CMP (MALE ) BUN/creatini ne ratio 32.76 ratio Not Available [facility] [address] [address], [place], [address], 09/03/2023 15:16:09 09/03/19 24 09/03/2023 CMP (MALE ) eGFR calculated 64.1 Not Available [facility] [address] [address], [place], [address], 09/03/2023 15:16:09 09/03/19 24 09/03/2023 CMP (MALE ) total protein 8.2 g/dL 6.0-8. 5 Not Available [facility] [address] [facility] 1, [place], [address], 09/03/2023 15:16:09/03/19 24 09/03/2023 CMP (MALE ) total bilirubin 1.0 mg/dL 0.2-1. 3 Not Available [facility] [address] [facility] 1, [place], [address], 09/03/2023 15:16:09/03/19 24 09/03/2023 CMP (MALE ) albumin 4.2 g/dL 3.5-5. 5 Not Available [facility] [address] [facility] 1, [place], [address], 09/03/2023 15:16:09 09/03/19 24 09/03/2023 CMP (MALE ) globulin 4.0 calc Not Available [facility] [address] [facility] 1, [place], [address], 09/03/2023 15:16:09/03/19 24 09/03/2023 CMP (MALE ) AST (SGOT) 60.0 U/L 0.0-46 .0 high Not Available [facility] [address] [facility] 1, [place], [address], 09/03/2023 15:16:09 09/03/19 24 09/03/2023 CMP (MALE ) altv (SGPT) 43.0 U/L 13.0-6 9.0 normal Not Available [facility] [address] [facility] 1, [place], [address], 09/03/2023 15:16:09 09/03/19 24 09/03/2023 CMP (MALE ) A/G ratio 1.1 ratio Not Available [facility] [address] [facility] 1, [place], [address], 09/03/2023 15:16:09/03/19 24 09/03/2023 CMP (MALE ) ALP phos 61.0 U/L 30.0-1 40.0 normal Not Available [address] [address] [facility] 1, [place], [address], 09/03/2023 15:16:09/03/19 24 09/03/2023 CMP (MALE ) calcium 9.8 mg/dL 8.4-10 .5 Not Available [address] [address] [facility] 1, [place], [address], 09/03/2023 15:16:09/03/19 24 09/03/2023 CMP (MALE ) sodium 138.0 mmol/ L 136.0- 145.0 Not Available [facility] [address] [facility] 1, [place], [address], 09/03/2023 15:16:09/03/19 24 09/03/2023 CMP (MALE ) potassium 4.5 mmol/ L 3.5-5. 1 Not Available [address] [address] [facility] 1, [place], [address], 09/03/2023 15:16:09/03/19 24 09/03/2023 CMP (MALE ) chloride 102.0 mmol/ L 98.0-1 10.0 normal Not Available [address] [address] [facility] 1, [place], [address], 09/03/2023 15:16:09/03/19 24 09/03/2023 CMP (MALE ) C02 26.0 mmol/ L 22.0-3 1.0 Not Available [facility] [address] [facility] 1, [place], [address], 09/03/2023 15:16:09 09/03/19 24 09/03/2023 CMP (MALE ) anion gap 10.0 calc Not Available [facility] [address] [facility] 1, [place], [address], 09/03/2023 15:16:09 09/03/19 24 09/03/2023 CMP (MALE ) osmolality 293.1 calc Not Available [facility] [address] [facility] 1, [place], [address], 09/03/2023 15:16:09 09/03/19 24 09/03/2023 LIPID PROFI LE (MALE ) cholesterol 176.0 mg/dL 0.0-20 0.0 Not Available [facility] [address] [facility], [place], [address], 09/03/2023 15:16:11 09/03/19 24 09/03/2023 LIPID PROFI LE (MALE ) trig 81.0 mg/dL 0.0-15 0.0 Not Available [facility] [address] [facility], [place], [address], 09/03/2023 15:16:11 09/03/19 24 09/03/2023 LIPID PROFI LE (MALE ) HDL - direct 52.0 mg/dL >40.0 Not Available [facility] [[email or web address] [address] [facility] [address] [facility] 1, [place], [address], 09/03/2023 15:16:11 09/03/19 24 09/03/2023 LIPID PROFI LE (MALE ) VLDL - direct 16.2 mg/dL Not Available [facility] [address] [facility] 1, [place], [address], 09/03/2023 15:16:11 09/03/19 24 09/03/2023 LIPID PROFI BRUCE (MALE ) LDL - direct 107.8 mg/dL 0.0-13 0.0 Not Available [facility] [address] [facility] 1, [place], [address], 09/03/2023 15:16:11 09/03/19 24 09/03/2023 TSH, serum or plasm a TSH 0.84 uIU/m L 0.49-3 .82 normal Not Available [facility] ([facility]) [address] [place] [address], [address], 09/03/2023 13:45:31 09/03/19 24 09/03/2023 HbA1c (hemo globi n A1c), blood HbA1c 5.5 Not Available [facility] ([facility]) [address] [place] [address], [address], 09/03/2023 13:45:39 09/09/19 24 09/09/2023 ESR (eryt hrocy te sedim entat ion rate) , blood SedRate 33 Not Available [facility] ([facility]) [address] [place] [address], [address], 09/09/2023 12:09:57 05/02/20 24 05/02/2024 CBC WBC 4.3 x10 4.5-10 .5 low Not Available [facility] [address] [facility] 1, [place], [address], 05/02/2024 16:28:41 05/02/20 24 05/02/2024 CBC RBC 3.80 x10 4.30-5 .90 low Not Available [facility] [address] [facility] 1, [place], [address], 05/02/2024 16:28:41 05/02/20 24 05/02/2024 CBC HGB 12.4 g/dL 13.5-1 8.0 low Not Available [facility] [address] [facility] 1, [place], [address], 05/02/2024 16:28:41 05/02/20 24 05/02/2024 CBC HCT 37.4 % 35.0-6 0.0 Not Available [facility] [address] [facility] 1, [place], [address], 05/02/2024 16:28:41 05/02/20 24 05/02/2024 CBC MCV 98.5 fL 80.0-9 9.9 Not Available [facility] [address] [facility] 1, [place], [address], 05/02/2024 16:28:41 05/02/20 24 05/02/2024 CBC MCH 32.7 pg 27.0-3 2.0 high Not Available [facility] [address] [facility] 1, [place], [address], 05/02/2024 16:28:41 05/02/20 24 05/02/2024 CBC MCHC 33.2 g/dL 32.0-3 6.0 Not Available [facility] [address] [facility] 1, [place], [address], 05/02/2024 16:28:41 05/02/20 24 05/02/2024 CBC RDW 15.4 % 11.5-1 4.5 high Not Available [facility] [address] [facility] 1, [place], [address], 05/02/2024 16:28:41 05/02/20 24 05/02/2024 CBC plt 215.3 x10 150.0- 451.0 Not Available [facility] [address] [facility] 1, [place], [address], 05/02/2024 16:28:41 05/02/20 24 05/02/2024 CBC lymphocytes % 17.6 % 20.0-5 0.0 low Not Available [facility] [address] [facility] 1, [place], [address], 05/02/2024 16:28:41 05/02/20 24 05/02/2024 CBC granulcytes % 66.8 % 30.0-7 0.0 Not Available [facility] [address] [facility] 1, [place], [address], 05/02/2024 16:28:41 05/02/20 24 05/02/2024 CBC monocytes % 10.4 % 2.0-16 .0 Not Available [facility] [address] [facility] 1, [place], [address], 05/02/2024 16:28:41 05/02/20 24 05/02/2024 CBC granulcytes# 2.9 x10 Not Ofelia ilable [facility] [address] [facility] 1, [place], [address], 05/02/2024 16:28:41 05/02/20 24 05/02/2024 CBC lymphocytes # 0.8 x10 Not Available [facility] [address] [facility] 1, [place], [address], 05/02/2024 16:28:41 05/02/20 24 05/02/2024 CBC monocytes # 0.5 x10 Not Avai lable [facility] [address] [facility] 1, [place], [address], 05/02/2024 16:28:41 05/02/20 24 05/02/2024 CMP (MALE ) glucose 114.0 mg/dL 60.0-9 9.0 high Not Available [facility] [address] [address], [place], [address], 05/02/2024 16:41:22 05/02/20 24 05/02/2024 CMP (MALE ) BUN (blood urea nitrogen) 35.0 mg/dL 10.0-2 6.0 high Not Available [facility] [address] [facility] 1, [place], [address], 05/02/2024 16:41:22 05/02/20 24 05/02/2024 CMP (MALE ) creatinine (serum) 1.1 mg/dL 0.4-1. 5 Not Available [facility] [address] [facility] 1, [place], [address], 05/02/2024 16:41:22 05/02/20 24 05/02/2024 CMP (MALE ) BUN/creatini ne ratio 31.82 ratio Not Available [facility] [address] [facility] 1, [place], [address], 05/02/2024 16:41:22 05/02/20 24 05/02/2024 CMP (MALE ) eGFR calculated 68.1 Not Available [facility] [address] [facility] 1, [place], [address], 05/02/2024 16:41:22 05/02/20 24 05/02/2024 CMP (MALE ) total protein 8.1 g/dL 6.0-8. 5 Not Available [facility] [address] [facility] 1, [place], [address], 05/02/2024 16:41:22 05/02/20 24 05/02/2024 CMP (MALE ) total bilirubin 1.1 mg/dL 0.2-1. 3 Not Available [facility] [address] [facility] 1, [place], [address], 05/02/2024 16:41:22 05/02/20 24 05/02/2024 CMP (MALE ) albumin 4.2 g/dL 3.5-5. 5 Not Available [facility] [address] [facility] 1, [place], [address], 05/02/2024 16:41:22 05/02/20 24 05/02/2024 CMP (MALE ) globulin 3.9 calc Not Available [facility] [address] [facility] 1, [place], [address], 05/02/2024 16:41:22 05/02/20 24 05/02/2024 CMP (MALE ) AST (SGOT) 62.0 U/L 0.0-46 .0 high Not Available [facility] [address] [facility] 1, [place], [address], 05/02/2024 16:41:22 05/02/20 24 05/02/2024 CMP (MALE ) altv (SGPT) 37.0 U/L 13.0-6 9.0 normal Not Available [facility] [address] [facility] 1, [place], [address], 05/02/2024 16:41:22 05/02/20 24 05/02/2024 CMP (MALE ) A/G ratio 1.1 ratio Not Available [facility] [address] [facility] 1, [place], [address], 05/02/2024 16:41:22 05/02/20 24 05/02/2024 CMP (MALE ) ALP phos 87.0 U/L 30.0-1 40.0 normal Not Available [facility] [address] [facility] 1, [place], [address], 05/02/2024 16:41:22 05/02/20 24 05/02/2024 CMP (MALE ) calcium 9.7 mg/dL 8.4-10 .5 Not Available [facility] [address] [facility] 1, [place], [address], 05/02/2024 16:41:22 05/02/20 24 05/02/2024 CMP (MALE ) sodium 133.0 mmol/ L 136.0- 145.0 low Not Available [facility] [address] [facility], [place], [address], 05/02/2024 16:41:22 05/02/20 24 05/02/2024 CMP (MALE ) potassium 4.3 mmol/ L 3.5-5. 1 Not Available [facility] [address] [facility], [place], [address], 05/02/2024 16:41:22 05/02/20 24 05/02/2024 CMP (MALE ) chloride 99.0 mmol/ L 98.0-1 10.0 normal Not Available [facility] [address] [facility] 1, [place], [address], 05/02/2024 16:41:22 05/02/20 24 05/02/2024 CMP (MALE ) C02 26.0 mmol/ L 22.0-3 1.0 Not Available [facility] [address] [facility] 1, [place], [address], 05/02/2024 16:41:22 05/02/20 24 05/02/2024 CMP (MALE ) anion gap 8.0 calc Not Available [facility] [address] [facility] 1, [place], [address], 05/02/2024 16:41:22 05/02/20 24 05/02/2024 CMP (MALE ) osmolality 283.4 calc Not Available [facility] [address] [facility], [place], [address], 05/02/2024 16:41:22 05/02/20 24 05/02/2024 TSH TSH 1.22 uIU/m L 0.49-3 .82 Not Available [facility] [address] [facility] 1, [place], [address], 05/02/2024 16:44:51 Result Notes None recorded. Problems Name Problem SNOMED Code Status Onset Date Resolution Date Notes Provider Name and Address Organization Details Recorded Time Congestive heart failure 02822988 Active 2023 CHETAN otto [facility] 4 08:40:51 Atrial fibrillati on 43580732 Active 2023 CHETAN CHAI otto [facility] 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 5 11:32:50 Chronic kidney disease stage 3 932400257 Active 2022 Harvey Jimenez DO [address] [place] [address], [address] , [facility] 3 12:48:01 Hypothyroi dism 37402054 Active 2022 Harvey Jimenez DO [address] [place] [address], [address] , [facility] 3 12:48:02 Pain of left knee joint 5263719781401 07 Active 2022 Harvey Jimenez DO [address] [place] [address], [address] , [facility] 3 12:48:05 Pain of left hip joint 3672611236416 00 Active 2022 Harvey Jimenez DO [address] [place] [address], [address] , [facility], Mariusz 3 12:48:06 Problem Notes None recorded. Medical Equipment None Reported. Allergies No known drug allergies Medications Name Sig Start Date Stop Date Status Note LastModified by Organization Details LastModified Time furosemid e 40 mg tablet Take 1 tablet every day by oral route for 30 days. active Not Available Not Available No t Available amiodaron e 200 mg tablet TAKE 1 TABLET BY MOUTH EVERY DAY active Not Available Not Available No t Available fluoroura cil 5 % topical cream TO DISSOLVE SUN DAMAGE, APPLY THINLY TWICE DAILY FOR 2 WEEKS. STOP TO ALLOW TO HEAL. active Not Available Not Available No t Available levothyro xine 88 mcg tablet TAKE 1 TABLET BY MOUTH EVERY DAY active Not Available Not Available No t Available lisinopri l 10 mg tablet TAKE 1 TABLET BY MOUTH ONCE DAILY active Not Available Not Available No t Available mupirocin 2 % topical ointment APPLY OINTMENT TOPICALL Y TWICE DAILY TO HEAL active Not Available Not Available No t Available Lasix daily 03/04 completed take when gain more than 3-4 pounds cs/smf; 65091; Recorded 08/22/19 8:45AM by Shannan Nugent (Authori rafatd through Harvey Jimenez DO), Office Visit; Refill Quantity : 30; Tablet; Not Available Not Available Not Available amiodaron e daily 03/04 completed DOC RM/bn; 9; Recorded 07/25/19 1:43PM by Qian Ya (Authori zed through Adin Ernst MD), Refill Request; Refill Quantity : 0; Not Available Not Available Not Available Vitamin D3 daily active Not Available Not Available Not Available THSC Levothyro xine Sodium daily 03/04 completed CS/smf; 48286; Recorded 04/28/20 11:52AM by Kellen Scott RN (Authori zed through Harvey Jimenez DO), Refill Request; Refill Quantity : 30; Tablet; Not Available Not Available Not Available magnesium 400 mg (as magnesium oxide) capsule daily 2014 active Not Available Not Available Not Avai lable Vitals Date Recorded Body temperature Oxygen saturation Oxygen saturation in Arterial blood by Pulse oximetry Heart rate Systolic And Diastolic Provider Name and Address Organization Details Last Updated DateTime 5 97.9 [degF] 97 % 97 % 74 /min 126/60 mm[Hg] [facility] 11:23:21 Date Recorded Body weight Respiratory rate Heart rate Oxygen saturation Oxygen saturation in Arterial blood by Pulse oximetry Systolic And Diastolic Provider Name and Address Organization Details Last Updated DateTime 4 67704.6 7 g 20 /min 87 /min 96 % 96 % 124/66 mm[Hg] [facility] 4 12:02:41 Date Recorded Body weight Respiratory rate Heart rate Oxygen saturation Oxygen saturation in Arterial blood by Pulse oximetry Systolic And Diastolic Provider Name and Address Organization Details Last Updated DateTime 3 64091.3 3 g 20 /min 68 /min 99 % 99 % 118/62 mm[Hg] [facility] 3 12:05:35 Date Recorded Respiratory rate Heart rate Oxygen saturation Oxygen saturation in Arterial blood by Pulse oximetry Systolic And Diastolic Provider Name and Address Organization Details Last Updated DateTime 4 19 /min 95 /min 98 % 98 % 142/80 mm[Hg] [facility] 4 15:20:01 Social History None recorded. Functional Status None recorded. Mental Status None recorded. Family History Nothing Reported. Medical History No medical history recorded. Immunizations Vaccine Type Date Status Note Provider Nam e and Address Organization Details Recorded Time Influenza, split virus, trivalent, preservative 5 completed Not Available [facility] 02:51:35 Influenza, split virus, trivalent, preservative 7 completed Jess Pliler [facility] 01/16/2024 11:12:20 Influenza, split virus, trivalent, preservative [facility] 01/16/2024 11:12:20 Pneumococcal conjugate PCV 13 7 [facility] 01/16/2024 11:12:20 Influenza, split virus, trivalent, preservative 1 [facility] 01/16/2024 11:12:20 pneumococcal polysaccharide PPV23 8 [facility] 01/16/2024 11:12:20 Influenza, high-dose, quadrivalent, PF 1 completed Jesswero Florian [facility] 01/16/2024 11:12:19 Influenza, adjuvanted, quadrivalent, PF 2 [facility] 01/16/2024 11:12:19 COVID-19, mRNA, LNP-S, PF, 100 mcg/0.5mL dose or 50 mcg/0.25mL dose 1 [facility] 01/16/2024 11:12:19 COVID-19, mRNA, LNP-S, PF, 100 mcg/0.5mL dose or 50 mcg/0.25mL dose 1 [facility] 01/16/2024 11:12:20 COVID-19, mRNA, LNP-S, PF, 100 mcg/0.5mL dose or 50 mcg/0.25mL dose 1 [facility] 01/16/2024 11:12:20 COVID-19, mRNA, LNP-S, bivalent, PF, 50 mcg/0.5 mL or 25mcg/0.25 mL dose 2 [facility]/16/2024 11:12:20 Influenza, high-dose, trivalent, PF 7 completed Jess [facility] 01/16/2024 11:12:20 Influenza, high-dose, trivalent, PF 8 completed [facility] 01/16/2024 11:12:20 Past Encounters Encounter ID Performer Location Encounter Start Date Encounter Closed Date Diagnosis/Indication Diagnosis SNOMED-CT Code Diagnosis ICD10 Code Diagnosis Note [id number] Harvey Jimenez [facility] [address] [place] [address] [id number] 09/01/2022 12:29:14 09/09/2022 12:05:59 Chronic kidney disease stage 3 169445463 N18.30 Hypothyroidism 30990559 E03.9 Pain of le ft knee joint 3926059604 97672 M25.562 Pain of le ft hip joint 1933215761 82479 M25.552 [id number] Harvey Jimenez DO [facility]) [address] [place] [address] [id number] 09/10/2022 12:19:48 09/17/2022 11:21:40 Venous stasis edema of bilateral lower limbs 9891728023 7800150 I87.2 Generalize d osteoarthritis 099439256 M15.9 [id number] Harvey Jimenez [facility] [address] [place] [address] [id number] 03/04/2023 11:51:42 03/04/2023 14:27:52 Pain of left hip joint 1826483511 04633 M25.552 Hypothyroidism 48755281 E03.9 Chronic ki dney disease stage 3 719593676 N18.30 Hyperglycemia 81108185 R 73.9 Systolic murmur 16715845 R01.1 [id number] Harvey Jimenez DO [facility] [address] [place], [place] [phone] 09/03/2023 13:42:58 09/04/2023 11:00:58 Hypothyroidism 79802233 E03.9 Chronic ki dney disease stage 3 956654070 N18.30 Hyperglycemia 87923531 R 73.9 [id number] Harvey Jimenez DO [facility] ([facility]) [address] [place] [address] [id number] 09/09/2023 11:52:38 09/09/2023 12:15:55 Chronic kidney disease stage 3 172532066 N18.30 Hypothyroidism 72268931 E03.9 Congestive heart failure 63293849 I50.9 Atrial fibrillation 4943 6004 I48.20 Pain of le ft hip joint 1091015955 02070 M25.552 Proximal m uscle weakness 772880844 M62.81 [id number] Harvey Jimenez DO [facility] ([facility]) [address] [place] [address] [id number] 05/02/2024 15:13:09 05/02/2024 15:47:23 Congestive heart failure 10129603 I50.9 Chronic ki dney disease stage 3 942417706 N18.30 Hypothyroidism 11545869 E03.9 [id number] Huma Barrera MD [facility] ([facility]) [address] [place] [address] [id number] 06/03/2024 11:09:48 06/03/2024 12:01:53 Physical deconditioning 3096355133 9102 R68.89 The patient would benefit from home health services, however they are limited. The patient may be need to look into other living arrangemen t such as assisted living. Atrial fibrillation 4943 6004 I48.91 Rate controlled on current medication s. Mild prote in-calorie malnutrition (weight for age 75-89 percent of standard) 106762864 E44.1 We will help patient get establishe d with [employer] Whe[employer] and hopefully arrange better living arrangemen ts for the patient. Health Concerns Section Related Observation LastModified by Organization Detai ls LastModified Time None Recorded Concern Status LastModified by Organization Details LastModified Time None Recorded Advance Directives Directive None Recorded Payers Insurance Date Sequence Insurance Name Policy Number Policy Cross Covered Member ID Cross Member ID Guarantor Name 06/01/2024 1 [employer] (MEDICARE REPLACEMENT/A DVANTAGE - PPO) Noe Mcclain [id number] Noe Mcclain Notes Date Note Type Note Provider Name and Address Organization Details Recorded Time 3 text/html HypothyroidReported bypatient.Onset/Timing:d x date: Duration:>12 months Associated Symptoms:no weakness; no lightheadedness; no fatigue; no cold intolerance Harvey DO Tony [address] [place] [address], [phone], [facility], Mariusz 03/04/2023 12:14:37 4 text/html HypothyroidReported bypatient.Onset/Timing:d x date: Duration:>12 months Associated Symptoms:no weakness; no lightheadedness; no fatigue; no cold intolerance Harvey Jimenez DO [address] [place] [address], [phone], [facility], Mariusz 09/09/2023 12:13:29 4 text/html HypothyroidReported bypatient.Onset/Timing:d x date: Duration:>12 months Associated Symptoms:no weakness; no lightheadedness; no fatigue; no cold intolerance Harvey Jimenez DO [address] [place] [address], [phone], [facility], LKenia 05/02/2024 15:33:12 5 text/html This is an 83-year-old gentleman that was a patient of Dr. Jimenez that comes in today to discuss home health and any other options for assistance. Patient is wheelchair-bound and lives with his . Patient and son both state that they have difficulty with meeting ADLs and typically do not eat well. The patient and his struggle to prepare their own meals. They do not have good support at home. They have briefly looked at other living options such as assisted living but never fully evaluated their options. Huma Barrera MD [address] [place] [address], [phone], [facility], Mariusz 06/04/2024 08:55:29
== END 2024-11-30 17:40 | disposition skilled nursing facility (03) ==
LOC: ER 11-29 01:36 → MEDSURG 11-29 07:36
PROVIDERS: Internal Medicine; Admitting Provider Internal Medicine; Emergency Provider Emergency Medicine; PCP Family Medicine; Visit Provider Student in an Organized Health Care Education/Training Program
DX: T67.01XA Heatstroke and sunstroke, initial encounter (principal); S09.90XA Unspecified injury of head, initial encounter; W19.XXXA Unspecified fall, initial encounter; E87.1 Hypo-osmolality and hyponatremia; I48.0 Paroxysmal atrial fibrillation; I10 Essential (primary) hypertension; E86.0 Dehydration; E87.3 Alkalosis; K59.09 Other constipation; E03.9 Hypothyroidism, unspecified; I34.0 Nonrheumatic mitral (valve) insufficiency; I35.1 Nonrheumatic aortic (valve) insufficiency
CPT/HCPCS: 36415; 70450; 70551; 71045; 71250; 72131; 72192; 80053; 81001; 82550; 83605; 83735; 83880; 84100; 84295; 84439; 84443; 84484; 85025; 87040; 87637; 93005; 93306; 96360; 96361; 97116; 97162; 97167; 97530; 97535; 99285; G0378; J1885; J7030; J9999

== ENCOUNTER 2025-04-26 09:16 | Emergency (ER) | payer MEDICARE, SELFPAY ==
[2025-04-26] VITALS (10 sets, daily range): BP systolic 113–136; BP diastolic 61–78; PULSE 61–91; RESP 14–18; TEMP 36.6; O2SAT 90–100; BMI 18.3
--- NOTE | 2025-04-26 09:21 | XRR_ITS ---
PROCEDURE INFORMATION: Exam: XR Chest Exam date and time: 04/26/2025 9:24 AM Age: 84 years old Clinical indication: Other: Weakness TECHNIQUE: Imaging protocol: Radiologic exam of the chest. Views: 1 view. COMPARISON: CT chest con [id number] 11/29/2024 12:08 AM FINDINGS: Lungs: Vague interstitial prominence in the lung bases may represent edema, atelectasis, and/or early infiltrate. Pleural spaces: Blunting of the costophrenic angles may represent small pleural effusions. No pneumothorax. Heart/Mediastinum: There is cardiomegaly. There is atherosclerosis of the aorta. Bones/joints: There are moderate degenerative changes of the bony structures. XR/XR chest 1V portable [id number] IMPRESSION: Cardiomegaly with basilar opacities which may represent atelectasis and/or early infiltrate or edema. Small pleural effusions may be present.
--- NOTE | 2025-04-26 09:22 | CTR_ITS ---
PROCEDURE INFORMATION: Exam: CT Head Without Contrast Exam date and time: 04/26/2025 9:39 AM Age: 84 years old Clinical indication: Other: Weakness TECHNIQUE: Imaging protocol: Computed tomography of the head without contrast. Radiation optimization: All CT scans at this facility use at least one of these dose optimization techniques: automated exposure control; mA and/or kV adjustment per patient size (includes targeted exams where dose is matched to clinical indication); or iterative reconstruction. COMPARISON: MR head wo con* [id number] 11/29/2024 1:19 PM RADIATION DOSE METRICS: Total DLP (mGy-cm): 1109 FINDINGS: Brain: There is significant enlargement of the sulci and cisterns consistent with involutional changes. No acute infarct identified. No hemorrhage. No mass. Cerebral ventricles: No ventriculomegaly. Paranasal sinuses: Visualized sinuses are unremarkable. No fluid levels. Mastoid air cells: Visualized mastoid air cells are well aerated. Bones: Unremarkable. No acute fracture. Soft tissues: Unremarkable. Vasculature: There is severe atherosclerotic changes of the vertebral arteries and internal cerebral arteries. CT/CT head wo con* [id number] IMPRESSION: Involutional changes. No acute process identified.
--- OUTSIDE RECORDS SUMMARY | 2025-04-26 09:27 | XMS_ITS | Data Portability ---
Author Organization [facility] Ybarra Akhiok [facility] Mariusz Aly, [facility] Address [address] [address] Care Team Providers Care Change Control Manager Name Role Phone HUMA BARRERA Primary Care Provider Assessment Encounter Date Assessment Date Assessment LastModified by Organization Details LastModified Time 06/03/2024 06/03/2024 We will have the critical care educator come and discuss options with the patient such as Meals on Wheels and other living situations like assisted living versus fpc. Patient may even qualify for Medicaid based on income which would assist him with some of the services [email or web address] Not available 06/04/2024 08:54:37 Plan of Treatment Reminders Order Date Submit Date Provider Last Modified By Organization Details Last Modified Time Details Appointments None recorded. Lab CMP, serum or plasma 2023 DONOVAN [facility], [address] [facility], [facility], [place], [address], 16:41:22 CBC 2023 [facility], [address] [facility], [address], [place], [address], 16:28:41 thyrotropin , QN, serum or plasma 2023 [facility], [address] [facility], [address], [place], [address], 16:44:51 Referral home health referral 2024 [id number] [email or web address] 2 [facility], [address] [place], [address], 5 09:19:56 home health referral 2023 024 [email or web address] 0 [facility], [address] [place], [address], 5 17:12:07 Procedures None recorded. Surgeries None recorded. Imaging None recorded. Medication Orders lisinopril 10 mg tablet 2024 025 [facility], [address], [place], [address], 5 10:31:25 amiodarone 200 mg tablet 2024 025 [facility], [address], [place], [address], 5 10:31:30 levothyroxi ne 88 mcg tablet 2024 025 [facility], [address], [place], [address], 5 10:31:15 furosemide 40 mg tablet 2024 025 [facility], [address], [place], [address], 5 10:31:27 Patient TargetsNo targets recorded. Patient Instructions Encounter Date Encounter Id Patient Instructions Last Modified By Organization Details Last Modified Time 05/02/2024 [id number] not managing wel l at home; discussed options including fpc vs moving closer to son he has lost diuretic script or some time and breathing is worse labs today, but will restart lasix not managing medicines, not eating well good discussion with son about getting a short and manager intermediate plan; will request home health to help with medication management, showers, etc Not available 05/02/2024 15:32:54 12/05/2024 [id number] Admitted with hyponatremia and s/p fall. Treated with IV fluids and oral sodium tabs. Cr 1.3 on discharge. Admitted to SNF for therapy. Labs Thursday. Not available 12/05/2024 17:02:53 12/14/2024 [id number] Doing well with therapy. Weight up a few lbs, states he is eating more. Mood good overall. [email or web address] Not available 12/14/2024 16:32:14 Reason for Referral Home Health Referral for Con gestive heart failure Referring Physician: Harvey Jimenez, Internal Medicine, Encounter Date: 05/02/2024 Home Health Referral for Phy sical deconditioning Referring Physician: Huma Barrera, Family Medicine, Encounter Date: 06/03/2024 Results Created Date Observation Date Name Description Value Unit Range Abnormal Flag Note LastModifiedBy Organization Detail LastModifiedTime 05/02/20 24 05/02/2024 CBC WBC 4.3 x10 4.5-10 .5 low Not Available [facility] [address] [facility] 1, [place], [address], 05/02/2024 16:28:41 05/02/20 24 05/02/2024 CBC RBC 3.80 x10 4.30-5 .90 low Not Available [facility] [address] [facility] 1, [place], [address], 05/02/2024 16:28:41 05/02/20 24 05/02/2024 CBC HGB 12.4 g/dL 13.5-1 8.0 low Not Available [facility] [address] [facility] 1, [place], [address], 05/02/2024 16:28:41 05/02/20 24 05/02/2024 CBC HCT 37.4 % 35.0-6 0.0 Not Available [facility] [address] [facility] 1, [place], [address], 05/02/2024 16:28:41 05/02/20 24 05/02/2024 CBC MCV 98.5 fL 80.0-9 9.9 Not Available [facility] [address] Le[address] [facility] 1, [place], [address], 05/02/2024 16:28:41 05/02/20 24 05/02/2024 CBC MCH 32.7 pg 27.0-3 2.0 high Not Available [facility] [address] [facility] 1, [place], [address], 05/02/2024 16:28:41 05/02/20 24 05/02/2024 CBC MCHC 33.2 g/dL 32.0-3 6.0 Not Available [facility] [address] [facility] 1, [place], [address], 05/02/2024 16:28:41 05/02/20 24 05/02/2024 CBC RDW 15.4 % 11.5-1 4.5 high Not Available [facility] [address] [facility] 1, [place], [address], 05/02/2024 16:28:41 05/02/20 24 05/02/2024 CBC plt 215.3 x10 150.0- 451.0 Not Available [facility] [address] [facility] 1, [place], [address], 05/02/2024 16:28:41 05/02/20 24 05/02/2024 CBC lymphocytes % 17.6 % 20.0-5 0.0 low Not Available [facility] [address] [facility] 1, [place], [address], 05/02/2024 16:28:41 05/02/20 24 05/02/2024 CBC granulcytes % 66.8 % 30.0-7 0.0 Not Available [facility] [address] [facility], [place], [address], 05/02/2024 16:28:41 05/02/20 24 05/02/2024 CBC monocytes % 10.4 % 2.0-16 .0 Not Available [facility] [address] [facility], [place], [address], 05/02/2024 16:28:41 05/02/20 24 05/02/2024 CBC granulcytes# 2.9 x10 Not Ofelia ilable [facility] [address] [facility], [place], [address], 05/02/2024 16:28:41 05/02/20 24 05/02/2024 CBC lymphocytes # 0.8 x10 Not Available [facility] [address] [address], [place], [address], 05/02/2024 16:28:41 05/02/20 24 05/02/2024 CBC monocytes # 0.5 x10 Not Avai lable [facility] [address] [address], [place], [address], 05/02/2024 16:28:41 05/02/20 24 05/02/2024 CMP (MALE ) glucose 114.0 mg/dL 60.0-9 9.0 high Not Available [facility] [address] [address], [place], [address], 05/02/2024 16:41:22 05/02/20 24 05/02/2024 CMP (MALE ) BUN (blood urea nitrogen) 35.0 mg/dL 10.0-2 6.0 high Not Available [facility] [address] [address], [place], [address], 05/02/2024 16:41:22 05/02/20 24 05/02/2024 CMP (MALE ) creatinine (serum) 1.1 mg/dL 0.4-1. 5 Not Available [facility] [address] [facility] 1, [place], [address], 05/02/2024 16:41:22 05/02/20 24 05/02/2024 CMP (MALE ) BUN/creatini ne ratio 31.82 ratio Not Available [facility] [address] [place] [address] [facility] 1, [place], [address], 05/02/2024 16:41:22 05/02/20 24 05/02/2024 CMP (MALE ) eGFR calculated 68.1 Not Available [facility] [address] [facility] 1, [place], [address], 05/02/2024 16:41:22 05/02/20 24 05/02/2024 CMP (MALE ) total protein 8.1 g/dL 6.0-8. 5 Not Available [facility] [address] [facility], [place], [address], 05/02/2024 16:41:22 05/02/20 24 05/02/2024 CMP (MALE ) total bilirubin 1.1 mg/dL 0.2-1. 3 Not Available [facility] [address] [facility] 1, [place], [address], 05/02/2024 16:41:22 05/02/20 24 05/02/2024 CMP (MALE ) albumin 4.2 g/dL 3.5-5. 5 Not Available [facility] [address] [facility] 1, [place], [address], 05/02/2024 16:41:22 05/02/20 24 05/02/2024 CMP (MALE ) globulin 3.9 calc Not Available [facility] [address] [facility], [place], [address], 05/02/2024 16:41:22 05/02/20 24 05/02/2024 CMP (MALE ) AST (SGOT) 62.0 U/L 0.0-46 .0 high Not Available [facility] [address] [facility], [place], [address], 05/02/2024 16:41:22 05/02/20 24 05/02/2024 CMP (MALE ) altv (SGPT) 37.0 U/L 13.0-6 9.0 normal Not Available [facility] [address] [facility] 1, [place], [address], 05/02/2024 16:41:22 05/02/20 24 05/02/2024 CMP (MALE ) A/G ratio 1.1 ratio Not Available [facility] C [facility] [address] [facility] 1, [place], [address], 05/02/2024 16:41:22 05/02/20 24 05/02/2024 CMP (MALE ) ALP phos 87.0 U/L 30.0-1 40.0 normal Not Available [facility] [address] [facility] 1, [place], [address], 05/02/2024 16:41:22 05/02/20 24 05/02/2024 CMP (MALE ) calcium 9.7 mg/dL 8.4-10 .5 Not Available [facility] [address] [facility] 1, [place], [address], 05/02/2024 16:41:22 05/02/20 24 05/02/2024 CMP (MALE ) sodium 133.0 mmol/ L 136.0- 145.0 low Not Available [facility] [address] [facility], [place], [address], 05/02/2024 16:41:22 05/02/20 24 05/02/2024 CMP (MALE ) potassium 4.3 mmol/ L 3.5-5. 1 Not Available [facility] [address] [facility] 1, [place], [address], 05/02/2024 16:41:22 05/02/20 24 05/02/2024 CMP (MALE ) chloride 99.0 mmol/ L 98.0-1 10.0 normal Not Available [facility] [address] [facility], [place], [address], 05/02/2024 16:41:22 05/02/20 24 05/02/2024 CMP (MALE ) C02 26.0 mmol/ L 22.0-3 1.0 Not Available [facility] [address] [facility] 1, [place], [address], 05/02/2024 16:41:22 05/02/20 24 05/02/2024 CMP (MALE ) anion gap 8.0 calc Not Available [facility] [address] [facility] 1, [place], [address], 05/02/2024 16:41:22 05/02/20 24 05/02/2024 CMP (MALE ) osmolality 283.4 calc Not Available [facility] [address] [facility] 1, [place], [address], 05/02/2024 16:41:22 05/02/20 24 05/02/2024 TSH TSH 1.22 uIU/m L 0.49-3 .82 Not Available [facility] [address] [facility] 1, [place], [address], 05/02/2024 16:44:51 Result Notes None recorded. Problems Name Problem SNOMED Code Status Onset Date Resolution Date Notes Provider Name and Address Organization Details Recorded Time Chronic kidney disease stage 3 357753865 Active 2022 Harvey Jimenez, DO [address] [place] [address], [address] , [facility] 3 12:48:01 Hypothyroi dism 38323817 Active 2022 Harvey Jimenez, [address], [address] , [facility] 3 12:48:02 Pain of left knee joint 4246023937046 07 Active 2022 Harvey Jimenez, [address], [address] , [facility] 3 12:48:05 Pain of left hip joint 3309459499551 00 Active 2022 Harvey Jimenez, [address], [address] , [facility] 3 12:48:06 Congestive heart failure 20772912 Active 2023 CHETAN otto [facility] 4 08:40:51 Atrial fibrillati on 54192143 Active 2023 CHETAN otto [facility] 4 08:41:01 Physical deconditio arcadio 4043986582539 2 Active 2024 Huma Barrera MD [address] [place] [address], [address] , [facility] 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 5 11:32:50 Essential hypertensi on 30224765 Active 2024 Huma Barrera MD [address] [place] [address], [address] , [facility], [facility] 22:39:52 Problem Notes None recorded. Medical Equipment None Reported. Allergies No known drug allergies Medications Name Sig Start Date Stop Date Status Note LastModified by Organization Details LastModified Time Prescript ion - Renewal active Not Available Not Available Not Available furosemid e 40 mg tablet TAKE 1 TABLET BY MOUTH [...] Not Available No t Available levothyro xine 100 mcg tablet TAKE 1 TABLET BY MOUTH EVERY DAY active Not Available Not Available No t Available levothyro xine 88 mcg tablet TAKE 1 TABLET BY MOUTH EVERY DAY 2024 active Not Available Not Available Not Avai lable lisinopri l 10 mg tablet TAKE 1 TABLET BY MOUTH EVERY DAY active Not Available Not Available No t Available mupirocin 2 % topical ointment APPLY OINTMENT TOPICALL Y TWICE DAILY TO HEAL active Not Available Not Available No t Available Lasix daily 03/04 completed take when gain more than 3-4 pounds cs/smf; 08003; Recorded 08/22/19 8:45AM by Shannan Nugent (Authori ryan through Harvey Jimenez DO), Office Visit; Refill Quantity : 30; Tablet; Not Available Not Available Not Available amiodaron e daily 03/04 completed DOC RM/bn; 9; Recorded 07/25/19 1:43PM by Qian Ya (Authori ryan through Adin Ernst MD), Refill Request; Refill Quantity : 0; Not Available Not Available Not Available Vitamin D3 daily active Not Available Not Available Not Available THSC Levothyro xine Sodium daily 03/04 completed CS/smf; 53444; Recorded 11/28/20 22 11:52AM by Kellen Scott RN (Authori ryan through Harvey Jimenez DO), Refill Request; Refill Quantity : 30; Tablet; Not Available Not Available Not Available magnesium 400 mg (as magnesium oxide) capsule daily 2014 active Not Available Not Available Not Avai lable Eliquis 5 mg tablet TAKE 1 TABLET BY MOUTH TWICE A DAY active Not Available Not Available No t Available Vitals Date Recorded Body temperature Oxygen saturation Heart rate Systolic And Diastolic Provider Name and Address Organization Details Last Updated DateTime 06/03/2024 97.9 [degF] 97 % 74 /min 126/60 mm[Hg] [facility] 5 11:23:21 Date Recorded Body weight Heart rate Respiratory rate Body temperature Oxygen saturation Systolic And Diastolic Provider Name and Address Organization Details Last Updated DateTime 5 29556.7 9 g 55 /min 17 /min 97.4 [degF] 99 % 130/96 mm[Hg] [facility] 5 16:57:16 Date Recorded Body weight Heart rate Respiratory rate Body temperature Oxygen saturation Systolic And Diastolic Provider Name and Address Organization Details Last Updated DateTime 5 13123.8 9 g 64 /min 16 /min 98.3 [degF] 98 % 116/68 mm[Hg] [facility] 5 16:29:54 Date Recorded Body weight Body mass index (BMI) Body height Oxygen saturation Heart rate Systolic And Diastolic Provider Name and Address Organization Details Last Updated DateTime 5 89298.5 6 g 18.4 kg/m2 182.88 cm 96 % 72 /min 112/60 mm[Hg] Balbinajose [facility] 5 10:17:20 Date Recorded Respiratory rate Heart rate Oxygen saturation Systolic And Diastolic Provider Name and Address Organization Details Last Updated DateTime 05/02/2024 19 /min 95 /min 98 % 142/80 mm[Hg] [facility] 4 15:20:01 Social History Question Answer Notes LastModified by Organizat ion Details LastModified Time Tobacco Smoking Status Never Smoker [facility] 12/21/2024 10:14:43 What Was The Date Of Your Most Recent Tobacco Screening? 12/21/2024 Information not available 12/21/2024 Sex: Unknown Functional Status Question Answer Note LastModified by Organizat ion Details LastModified Time Do you use any illicit or recreational drugs? No Information not available 12/21/2024 Mental Status None recorded. Family History Nothing Reported. Medical History No medical history recorded. Immunizations Vaccine Type Date Status Note Provider Nam e and Address Organization Details Recorded Time Influenza, split virus, trivalent, preservative 5 completed Not Available [facility] 12/27/2022 02:51:35 Influenza, split virus, trivalent, preservative 7 completed [facility] 01/16/2024 11:12:20 Influenza, split virus, trivalent, preservative 8 completed Jess Florian [facility] 01/16/2024 11:12:20 Pneumococcal conjugate PCV 13 7 completed Jess Florian [facility] L[facility]CE[facility]iana 01/16/2024 11:12:20 Influenza, split virus, trivalent, preservative 1 completed Jess otto [facility] 01/16/2024 11:12:20 pneumococcal polysaccharide PPV23 8 completed Jess Florian [facility] 01/16/2024 11:12:20 Influenza, high-dose, quadrivalent, PF 1 completed Jess otto [facility], LEmilianaLEmilianaCEmiliana 01/16/2024 11:12:19 Influenza, adjuvanted, quadrivalent, PF 2 completed Jess otto [facility] 01/16/2024 11:12:19 COVID-19, mRNA, LNP-S, PF, 100 mcg/0.5mL dose or 50 mcg/0.25mL dose 1 completed Jess otto [facility] 01/16/2024 11:12:19 COVID-19, mRNA, LNP-S, PF, 100 mcg/0.5mL dose or 50 mcg/0.25mL dose 1 completed Jess otto [facility] 01/16/2024 11:12:20 COVID-19, mRNA, LNP-S, PF, 100 mcg/0.5mL dose or 50 mcg/0.25mL dose 1 completed Jess otto [facility] 01/16/2024 11:12:20 COVID-19, mRNA, LNP-S, bivalent, PF, 50 mcg/0.5 mL or 25mcg/0.25 mL dose 2 completed Jess otto [facility] 01/16/2024 11:12:20 Influenza, high-dose, trivalent, PF 7 completed Jess otto [facility] 01/16/2024 11:12:20 Influenza, high-dose, trivalent, PF 8 completed Jess Florian [facility] 01/16/2024 11:12:20 Past Encounters Encounter ID Performer Location Encounter Start Date Encounter Closed Date Diagnosis/Indication Diagnosis SNOMED-CT Code Diagnosis ICD10 Code Diagnosis IMO Codes Diagnosis Note [id number] Harvey Jimenez DO [facility] ([facility]) [address] [place] [phone] 09/01/2022 12:29:14 09/09/2022 12:05:59 Chronic kidney disease stage 3 070255854 N18.30 Hypothyroidism 67807201 E03.9 Pain of le ft knee joint 5694661411 72074 M25.562 Pain of le ft hip joint 1662757958 43561 M25.552 [id number] Harvey Jimenez DO [facility] ([facility]) [address] [place] [address] 5 09/10/2022 12:19:48 09/17/2022 11:21:40 Venous stasis edema of bilateral lower limbs 0424492415 3131682 I87.2 Generalize d osteoarthritis 502655947 M15.9 [id number] Harvey Jimenez DO [facility] ([facility]) [address] [place] [address] 5 03/04/2023 11:51:42 03/04/2023 14:27:52 Pain of left hip joint 6526792660 62316 M25.552 Hypothyroidism 03527057 E03.9 Chronic ki dney disease stage 3 521921748 N18.30 Hyperglycemia 08603677 R 73.9 Systolic murmur 92811540 R01.1 [id number] Harvey Jimenez DO [facility] ([facility]) [address] [place] [address] 5 09/03/2023 13:42:58 09/04/2023 11:00:58 Hypothyroidism 05284239 E03.9 Chronic ki dney disease stage 3 932155461 N18.30 Hyperglycemia 59244169 R 73.9 [id number] Harvey Jimenez DO [facility] ([facility]) [address] [place] [address] 5 09/09/2023 11:52:38 09/09/2023 12:15:55 Chronic kidney disease stage 3 342535312 N18.30 Hypothyroidism 36479600 E03.9 Congestive heart failure 58903466 I50.9 Atrial fibrillation 4943 6004 I48.20 Pain of le ft hip joint 8235699998 66360 M25.552 Proximal m uscle weakness 258764613 M62.81 [id number] Harvey Jimenez DO [facility] ([facility]) [address] [place] [address] 5 05/02/2024 15:13:09 05/02/2024 15:47:23 Congestive heart failure 29771486 I50.9 Chronic ki dney disease stage 3 761422282 N18.30 Hypothyroidism 44400050 E03.9 [id number] Huma Barrera MD [facility] ([facility]) [address] [place] [phone] 06/03/2024 11:09:48 06/03/2024 12:01:53 Physical deconditioning 8580321942 9102 R68.89 The patient would benefit from home health services, however they are limited. The patient may be need to look into other living arrangemen t such as assisted living. Atrial fibrillation 4943 6004 I48.91 Rate controlled on current medication s. Mild prote in-calorie malnutrition (weight for age 75-89 percent of standard) 452589742 E44.1 We will help patient get establishe d with Meals on Wheels and hopefully arrange better living arrangemen ts for the patient. [id number] Harvey Jimenez DO [facility] ([facility]) [address] [place] [phone] 12/05/2024 14:12:13 12/06/2024 10:59:59 Post-discharge follow-up 322926394 Z09 520040 Hyponatremia 47942762 E8 7.1 71818 History of fall 83411756 9 Z91.81 7537143 Atrial fibrillation 4943 6004 I48.91 Chronic ki dney disease stage 3 255323251 N18.30 Congestive heart failure 49785331 I50.9 Hypothyroidism 24929495 E03.9 [id number] Harvey Jimenez DO [facility] ([facility]) [address] [place] [phone] 12/14/2024 09:26:51 12/20/2024 08:32:50 Congestive heart failure 34294571 I50.9 Atrial fibrillation 4943 6004 I48.91 Physical deconditioning 0430021627 9102 R68.89 [id number] Huma Barrera MD [facility] ([facility]) [address] [place] [phone] 5 12/21/2024 09:57:41 12/21/2024 11:14:21 Atrial fibrillation 89736156 I48.91 Rate controlled on current medication s. Congestive heart failure 35827415 I50.9 Continue Lasix Hypothyroidism 90036611 E03.9 Continue levothyrox ine. Essential hypertension 42602461 I10 Continue blood pressure medication s, however recommend checking blood pressure twice daily and provide a log of those readings over the next week. Health Concerns Section Related Observation LastModified by Organization Detai ls LastModified Time None Recorded Concern Status LastModified by Organization Details LastModified Time None Recorded Advance Directives Directive None Recorded Payers Insurance Date Sequence Insurance Name Policy Number Policy Cross Covered Member ID Cross Member ID Guarantor Name 03/20/2025 1 [employer] (MEDICARE REPLACEMENT/A DVANTAGE - PPO) Noe Mcclain [id number] Noe Mcclain Notes Date Note Type Note Provider Name and Address Organization Details Recorded Time 4 text/html HypothyroidReported by PatientHPIFor onset/timing, patient reportsdx date: ____. For duration, patient reports>12 months. For associated symptoms, patient reportsno weakness,no lightheadedness,no fatigue, andno cold intolerance.ROS as noted in the HPI Harvey Jimenez DO [address] [place] [address], [phone], [facility], LEmilianaLEmilianaC. 05/02/2024 15:33:12 5 text/html This is an [...] fully evaluated their options. Huma Barrera MD [address] [place] [address], [phone], [facility], LMichelleC. 06/04/2024 08:55:29 5 text/html HypothyroidReported by PatientHPIFor onset/timing, patient reportsdx date: ____. For duration, patient reports>12 months. For associated symptoms, patient reportsno weakness,no lightheadedness,no fatigue, andno cold intolerance.ROS as noted in the HPI new admit to snf. Harvey JimenezDO [address] [place] [address], [phone], [facility], MeliLDaysi. 12/05/2024 17:06:31 5 text/html HypothyroidReported by PatientHPIFor onset/timing, patient reportsdx date: ____. For duration, patient reports>12 months. For associated symptoms, patient reportsno weakness,no lightheadedness,no fatigue, andno cold intolerance.ROS as noted in the HPI no complaints per staff. Pt reports he is working with therapy. Harvey JimenezDO [address] [place] [address], [phone], [facility], LEmilianaLEmilianaC. 12/19/2024 13:45:04 5 text/html Annual WellnessReported by PatientROS as noted in the HPI Patient is here today for a f/u after hospitalization and Rehab stay11/28 Pt had a fall on admission was found to have hyponatremiaDischarged from Hospital [facility]2Pt discharged from [facility] 3 or 4 days ago pt and are not surePt here today to be seen so he can get his medications refilledThe patient and his are poor historians and appear to be very confused on all aspects of this visit from appointment time to medications - discharge dates- and historic blood pressuresBP 112/60 this morning and he says he did not take any medications this morning Huma Barrera MD [address] [place] [address], [phone], [facility] 01/01/2025 22:40:09
--- NOTE | 2025-04-26 09:28 | W.ED.WEAKNES ---
HPI - Weakness General: Chief complaint: Weakness Stated complaint: Weakness Time Seen by Provider: 04/26/25 09:17 History of Present Illness: 84-year-old man with a history of atrial fibrillation, mitral regurgitation, hypertension, hypothyroidism and chronic lower extremity edema who presents emergency room with generalized weakness and weeping from his lower extremities. He also says he has just been much more weak lately. He says at times he has trouble moving his arms and his legs. No fevers. No chest pain. No shortness of breath that is new. He says he spends all his time in a wheelchair. Related Data Home Medications ?Medication ?Instructions ?Recorded ?Confirmed amiodarone 200 mg tablet 200 mg PO DAILY 10/11/20 04/26/25 lisinopril 10 mg tablet 10 mg PO DAILY 10/11/20 04/26/25 magnesium oxide 400 mg (241.3 mg 400 mg PO DAILY 10/11/20 04/26/25 magnesium) tablet (MagOx) cholecalciferol (vitamin D3) 125 375 mcg PO DAILY 04/26/25 04/26/25 mcg (5,000 unit) tablet (Vitamin D3) levothyroxine 88 mcg tablet 88 mcg PO QAM 04/26/25 04/26/25 Allergies Allergy/AdvReac Type Severity Reaction Status Date / Time No Known Allergies Allergy Unverified 12/13/20 13:43 Review of Systems Narrative: Constitutional symptoms: Negative except as documented in HPI. Skin symptoms: Negative except as documented in HPI. Eye symptoms: Negative except as documented in HPI. ENMT symptoms: Negative except as documented in HPI. Respiratory symptoms: Negative except as documented in HPI. Cardiovascular symptoms: Negative except as documented in HPI. Gastrointestinal symptoms: Negative except as documented in HPI. Genitourinary symptoms: Negative except as documented in HPI. Musculoskeletal symptoms: Negative except as documented in HPI. Neurologic symptoms: Negative except as documented in HPI. Psychiatric symptoms: Negative except as documented in HPI. Endocrine symptoms: Negative except as documented in HPI. [facility] ED PFSH: Medical History (Updated 04/26/25 @ 13:55 by Viv Ryan MD) Mitral regurgitation Atrial fibrillation Hypertension Hypothyroidism Peripheral vascular complications Peripheral artery insufficiency Endogenous hyperlipidemia Family History Other Hypertension Physical Exam Narrative: EXAM NARRATIVE: General: Alert, no acute distress. Skin: Warm, dry. Head: Normocephalic, atraumatic. Neck: Supple, trachea midline. Eye: Extraocular movements are intact. Ears, nose, mouth and throat: mucosa moist. Cardiovascular: Regular, Normal peripheral perfusion. Respiratory: Lungs are clear to auscultation, respirations are non-labored, breath sounds are equal, Symmetrical chest wall expansion. Gastrointestinal: Soft, Nontender, Non distended Musculoskeletal: Normal ROM, no deformity. Neurological: Alert and oriented, No focal neurological deficit observed. Psychiatric: Cooperative, appropriate mood & affect. Course Vital Signs: Vital signs: Vital Signs Temperature 97.8 F 04/26/25 09:16 Pulse Rate 65 04/26/25 12:48 Respiratory Rate 14 04/26/25 12:00 Blood Pressure 113/78 04/26/25 13:53 Pulse Oximetry 90 04/26/25 12:48 Oxygen Delivery Me thod Room Air 04/26/25 12:48 MDM - Weakness Medical Decision Making Medical decision making Patient's reason for coming to the emergency room: Weakness, weeping from his legs Social determinants: Patient lives at home with his . I reviewed the patient's medical record. Patient was admitted to the hospital in November for fall, hyponatremia. Treated and sent home. 84-year-old man with a history of atrial fibrillation, mitral regurgitation, hypertension, hypothyroidism and chronic lower extremity edema I reviewed the patient's current home meds Patient is no longer on a diuretic. He is on amiodarone, lisinopril and levothyroxine at home. Alternate historians: None Differential diagnosis including but not limited to and based on the above HPI, review of systems and physical exam: for patient with edema: Congestive heart failure. Kidney failure. DVT / Pulmonary embolism. Protein malnutrition. Cirrhosis. Orders placed to evaluate differential diagnosis based on the above differential, HPI and physical exam Differential diagnosis for patient presenting with generalized weakness including but not limited to and based on the above HPI, review of systems and physical exam: Sepsis. Dehydration. Renal failure. Electrolyte abnormalities. Anemia. Congestive heart failure. Hypotension. Coronary syndrome. Hepatitis. Cirrhosis. Infections such as pneumonia, urinary tract infection, [place] illness, Cellulitis, Viral infections including influenza and Covid-19. Workup: labwork and lab/exam driven imaging ordered to evaluate, rule in and rule out above pathologies. EKG: Time 10:08 AM. Rate 60. Atrial fibrillation with controlled rate, No ST-T changes, no ectopy, This was reviewed and interpreted by myself the ER physician at 10:15 AM Repeat EKG: Time 1230. Rate 73. Atrial fibrillation with controlled rate, No ST-T changes, no ectopy, This was reviewed and interpreted by myself the ER physician at 1235. No significant changes from previous EKG. CT head: Senescent changes. No acute intracranial process. No intracranial hemorrhage, no evidence of infarct. No evidence of acute fracture. This was reviewed and interpreted by myself the emergency room physician. I also reviewed the radiology report. Chest x-ray: Cardiomegaly with bibasilar opacities that may be atelectasis or infiltrate or edema. Small pleural effusions. This was reviewed and interpreted by myself the emergency room physician. I also reviewed the radiology report. CT scan ordered to further evaluate the chest. Atelectasis no focal consolidation. Cardiomegaly. This was reviewed and interpreted by myself the emergency room physician. I also reviewed the radiology report. Lab Review: Laboratory results were reviewed and interpreted by myself the emergency room physician. No leukocytosis. No anemia. Mild chronic renal insufficiency sodium is near what he was at at discharge at 129. Urinalysis is negative for infection. Flu COVID and RSV are negative. Initial troponin is elevated but this is unchanged on repeat. Assessment of risk: Level of risk: High risk patient. Elderly with comorbidities Hospitalization considerations: I was planning to send patient home but when I went to talk to him he says he cannot be at home anymore he wants to go to a assisted. Reexamination: Patient remained stable. No increased work of breathing. No altered mental status. No focal motor deficits. Consultation case management. Patient is going to self-pay for assisted so being discharged there. Assessment and plan: Edema Debility Weakness ?40 mg IV Lasix in the emergency room. - Discharged home - Discussed findings and plan with patient. Answered any questions. - All laboratory values were reviewed and interpreted personally by myself, the ER physician - All imaging was reviewed and interpreted personally by myself, the ER physician. - Evaluation and treatment of this problem were appropriate in the emergency setting Lab Data 04/26/25 09:52 04/26/25 09:52 Radiology Impressions Chest X-Ray 04/26/25 09:21 IMPRESSION: Cardiomegaly with basilar opacities which may represent atelectasis and/or early infiltrate or edema. Small pleural effusions may be present. Head CT 04/26/25 09:22 IMPRESSION: Involutional changes. No acute process identified. Chest CT 04/26/25 09:50 IMPRESSION: Bibasilar atelectasis. No focal consolidation. Cardiomegaly. Laboratory Results WBC 4.04 10^3/uL (3.29-11.43) 04/26/25 09:52 RBC 3.12 10^6/uL (3.85-5.65) L 04/26/25 09:52 Hgb 10.20 g/dL (11.27-16.99) L 04/26/25 09:52 Hct 30.8 % (37-53) L 04/26/25 09:52 MCV 98.7 fl (82-101) 04/26/25 09:52 MCH 32.7 pg (27-33) 04/26/25 09:52 MCHC 33.1 g/dL (30-55) 04/26/25 09:52 RDW 15.8 % (12.1-15.1) H 04/26/25 09:52 Plt Count 252 10^3/cmm (157-399) 04/26/25 09:52 MPV 9.4 fL (7.4-10.4) 04/26/25 09:52 Neut % (Auto) 65.4 % 04/26/25 09:52 Lymph % (Auto) 15.6 % 04/26/25 09:52 Millard % (Auto) 16.1 % 04/26/25 09:52 Eos % (Auto) 2.2 % 04/26/25 09:52 Baso % (Auto) 0.5 % 04/26/25 09:52 Neut # (Auto) 2.64 10^3/uL (1.8-7.7) 04/26/25 09:52 Lymph # (Auto) 0.6 10^3/uL (0.8-4.8) L 04/26/25 09:52 Millard # (Auto) 0.7 10^3/uL (0.2-0.9) 04/26/25 09:52 Eos # (Auto) 0.1 10^3/uL (0.0-0.8) 04/26/25 09:52 Baso # (Auto) 0.0 10^3/uL (0.0-0.1) 04/26/25 09:52 Nucleated RBC % (auto) 0 % 04/26/25 09:52 Nucleated RBCs # 0.0 /100WBC 04/26/25 09:52 ESR 18 mm/hr (0-10) H 04/26/25 09:52 Sodium 129 mmol/L (136-145) L 04/26/25 09:52 Potassium 5.1 mmol/L (3.5-5.1) 04/26/25 09:52 Chloride 93 mmol/L (98-107) L 04/26/25 09:52 Carbon Dioxide 26 mmol/L (22-29) 04/26/25 09:52 Anion Gap 15.1 (5-19) 04/26/25 09:52 BUN 34 mg/dL (8-23) H 04/26/25 09:52 Creatinine 1.0 mg/dL (0.7-1.2) 04/26/25 09:52 GFR Calculation Not Reportable 04/26/25 09:52 Glucose 87 mg/dL (65-115) 04/26/25 09:52 Calculated Osmolality 275 mOsm/kg (285-295) L 04/26/25 09:52 Lactic Acid 0.9 mmol/L (0.5-2.2) 04/26/25 09:52 Calcium 9.6 mg/dL (8.5-10.5) 04/26/25 09:52 Total Bilirubin 0.9 mg/dL (0.15-1.2) 04/26/25 09:52 AST 39 U/L (0-40) 04/26/25 09:52 ALT 25 U/L (0-41) 04/26/25 09:52 Alkaline Phosphatase 37 U/L (40-130) L 04/26/25 09:52 Troponin T Baseline 50 ng/L (0-15) H 04/26/25 09:52 Troponin T 120 Minute 47.02 ng/L (0-15) H 04/26/25 11:06 Delta Troponin T -2.98 ABS# (0-10) L 04/26/25 11:06 C-Reactive Protein 5.8 mg/L (0.0-4.9) H 04/26/25 09:52 NT-Pro-B Natriuret Pep 1492 pg/mL (0-450) H 04/26/25 09:52 Total Protein 7.4 g/dL (6.6-8.7) 04/26/25 09:52 Albumin 4.4 g/dL (3.5-5.2) 04/26/25 09:52 Globulin 3.0 g/dL (1.3-4.6) 04/26/25 09:52 Urine Color Yellow (Yellow) 04/26/25 10:12 Urine Appearance Clear (CLEAR) 04/26/25 10:12 Urine pH 7.5 (5-7) 04/26/25 10:12 Ur Specific [place] 1.019 (1.005-1.030) 04/26/25 10:12 Urine Protein Negative (Negative) 04/26/25 10:12 Urine Glucose (UA) Negative (Normal) 04/26/25 10:12 Urine Ketones Negative (Negative) 04/26/25 10:12 Urine Blood Negative (Negative) 04/26/25 10:12 Urine Nitrate Negative (Negative) 04/26/25 10:12 Urine Bilirubin Negative (Negative) 04/26/25 10:12 Urine Urobilinogen 1.0 mg/dL (Negative) 04/26/25 10:12 Ur Leukocyte Esterase Negative (Negative) 04/26/25 10:12 Urine RBC 0-2 /hpf (0-2) 04/26/25 10:12 Urine WBC 0-5 /hpf (0-5) 04/26/25 10:12 Ur Squamous Epith Cells 0-5 /hpf (0-5) 04/26/25 10:12 Amorphous Sediment Not Reportable 04/26/25 10:12 Urine Bacteria None seen /hpf (NONE) 04/26/25 10:12 Hyaline Casts 1.21 /lpf 04/26/25 10:12 Influenza A (PCR) Negative (Negative) 04/26/25 09:50 Influenza Type B (PCR) Negative (Negative) 04/26/25 09:50 RSV (PCR) Negative (Negative) 04/26/25 09:50 SARS-CoV-2 (PCR) Negative (Negative) 04/26/25 09:50 All radiology interpretation(s) finalized by discharge Discharge Plan Discharge Patient Disposition: Home Clinical Impression: Edema, Weakness, Debility Condition: Stable Prescriptions: No Action magnesium oxide [MagOx] 400 mg (241.3 mg magnesium) tablet 400 mg PO DAILY amiodarone 200 mg tablet 200 mg PO DAILY lisinopril 10 mg tablet 10 mg PO DAILY cholecalciferol (vitamin D3) [Vitamin D3] 125 mcg (5,000 unit) Tablet 375 mcg PO DAILY levothyroxine 88 mcg tablet 88 mcg PO QAM Discharge Orders: Discharge ED (Routine); Ordered 04/26/25 Ordered By: Viv Ryan Referrals: Lucas Barrera MD [Primary Care Provider, Family Practice] Discharge Diet: Usual diet Discharge Activity: Increase activity as tolerated Patient Instructions: Opioid Safety, Pain Management, Patient Portal & Archana Instructions Print Language: Luxembourgish Coding Level of Care Code ED Early Childhood Education Coordinator for Lupe Cabrera
--- NOTE | 2025-04-26 09:50 | CTR_ITS ---
PROCEDURE INFORMATION: Exam: CT Chest Without Contrast; Diagnostic Exam date and time: 04/26/2025 10:14 AM Age: 84 years old Clinical indication: Abnormal findings; Abnormal radiologic exam of lung or chest; Additional info: Abnormal chest xray TECHNIQUE: Imaging protocol: Diagnostic computed tomography of the chest without contrast. Radiation optimization: All CT scans at this facility use at least one of these dose optimization techniques: automated exposure control; mA and/or kV adjustment per patient size (includes targeted exams where dose is matched to clinical indication); or iterative reconstruction. COMPARISON: CT chest con [id number] 11/29/2024 12:08 AM RADIATION DOSE METRICS: Total DLP (mGy-cm): 250.5 FINDINGS: Limitations: Limited by motion artifact. Lungs: Bibasilar atelectasis. No focal consolidation. Pleural spaces: Unremarkable. No pneumothorax. No pleural effusion. Heart: Cardiomegaly with left atrial enlargement. Hypoattenuation of the cardiac blood pool relative to the myocardium, as can be seen in the setting of anemia. Coronary arteries: Severe coronary artery calcification. Lymph nodes: Unremarkable. No enlarged lymph nodes. Vasculature: Atherosclerotic calcifications of the aortic arch. Spleen: Multifocal splenic calcifications, likely sequela of prior granulomatous disease. Bones/joints: Severe degenerative changes of the spine. Soft tissues: Unremarkable. CT/CT chest con [id number] IMPRESSION: Bibasilar atelectasis. No focal consolidation. Cardiomegaly.
--- NOTE | 2025-04-26 10:08 | ECG_ITS ---
[facility]25-[facility]26 Pat Name: Noe Mcclain Department: Room: Gender: Male Safety And Security Officer: : 1940 Requested By: Viv Otoole Order Number: [id number] Rosmery MD: Reuben Leroy M.D. Measurements Intervals [place] Rate: 60 P: 0 IA: 0 QRS: 97 QRSD: 139 T: 44 QT: 471 QTc: 473 Interpretive Statements ATRIAL FIBRILLATION BORDERLINE RIGHT AXIS DEVIATION [QRS AXIS > 90] INTRAVENTRICULAR CONDUCTION DELAY [130+ ms QRS DURATION] MINIMAL VOLTAGE CRITERIA FOR LVH, CONSIDER NORMAL VARIANT Compared to ECG 11/29/2024 05:37:24 No significant changes Electronically Signed On 04-27-2025 17:39:43 BODY SHOP WORKER by Reuben Leroy M.D. [id number] [id number]
[2025-04-26 10:15] LABS: Hematocrit 30.8 % (37-53); Hemoglobin 10.20 g/dL (11.27-16.99); Mean Corpuscular HGB Conc 33.1 g/dL (30-55); Mean Corpuscular Hemoglobin 32.7 pg (27-33); Mean Corpuscular Volume 98.7 fl (82-101); Nucleated Red Blood Cells % 0 %; Platelet Count 252 10^3/cmm (157-399); Red Blood Count 3.12 10^6/uL (3.85-5.65); White Blood Count 4.04 10^3/uL (3.29-11.43)
[2025-04-26 10:37] LABS: Lactic Sepsis W/Reflex 0.9 mmol/L (0.5-2.2); Troponin(5th) Baseline 50 ng/L (0-15)
[2025-04-26 10:47] LABS: Respiratory Syncytial Virus Ce NEGATIVE (Negative); SARS-CoV-2 PCR NEGATIVE (Negative)
[2025-04-26 10:53] LABS: Glucose Urine UA Negative (Normal); Nitrate Urine Negative (Negative); Specific Gravity, Urine 1.019 (1.005-1.030)
--- NOTE | 2025-04-26 11:22 | ECG_ITS ---
[facility] Test Date: 2025-04-26 Pat Name: Noe Mcclain Department: Room: Gender: Male Deputy Clerk Of Court: : 1940 Requested By: Viv Otoole Order Number: [id number] Rosmery MD: Reuben Leroy M.D. Measurements Intervals [place] Rate: 73 P: 0 MD: 0 QRS: 100 QRSD: 141 T: 30 QT: 448 QTc: 495 Interpretive Statements ATRIAL FIBRILLATION BORDERLINE RIGHT AXIS DEVIATION [QRS AXIS > 90] INTRAVENTRICULAR CONDUCTION DELAY [130+ ms QRS DURATION] Compared to ECG 04/26/2025 10:08:58 No significant changes Electronically Signed On 04-27-2025 18:03:37 RUG INSPECTOR by Reuben Leroy M.D. [email or web address] [id number]
[2025-04-26 11:27] LABS: Albumin Level 4.4 g/dL (3.5-5.2); Alkaline Phosphatase 37 U/L (40-130); Chloride 93 mmol/L (98-107); Potassium 5.1 mmol/L (3.5-5.1); Sodium 129 mmol/L (136-145)
[2025-04-26 11:29] LABS: Troponin 5 2HR 47.02 ng/L (0-15)
[2025-04-26 11:30] LABS: Troponin 5 2HR Delta -2.98 ABS# (0-10)
[2025-04-26 11:50] LABS: Anion Gap 15.1 (5-19); Aspartate Amino Transferase 39 U/L (0-40); Blood Urea Nitrogen 34 mg/dL (8-23); Calcium 9.6 mg/dL (8.5-10.5); Carbon Dioxide 26 mmol/L (22-29); Globulin 3.0 g/dL (1.3-4.6); Glucose 87 mg/dL (65-115); NT Pro B Type Natriuretic Pept 1492 pg/mL (0-450); Osmolality Calculated 275 mOsm/kg (285-295); Total Protein 7.4 g/dL (6.6-8.7)
[2025-04-26 12:04] LABS: Alanine Aminotransferase 25 U/L (0-41)
[2025-04-26] MEDS: FUROsemide 10 mg/mL SDV 4mL 40 MG IVP (12:24)
--- NOTE | 2025-04-26 14:28 | PC.SOCIAL ---
SNF Placement Dr. Ryan requested CM come to ER to discuss SNF placement. CM to room and spoke to patient and sig. other Maribell. CM explained that @ this time if patient is wanting SNF he will have to private pay. CM discussed cost of $6500-$7000. Patient is agreeable to private pay @ this time. He does not have a preference of where he would want to go, but his sig. other Maribell has contacted [facility] about placement already. New Referral to [facility] @ this time.
--- NOTE | 2025-04-26 14:49 | PC.SOCIAL ---
SNF Placement CM to room to see patient and updated that patient has been accepted @ [facility]. Patient is upset b/c life partner cannot admit w/ him. He is wanting to return home. CM called and spoke to patients friend Vani and explained that since patient is in ER CM has arranged SNF placement, but since life partner is not a patient she will have to make outside arrangements w/ SNF for placement. After long discussion, patient is agreeable to SNF for as he is not able to get in an out of car. CM explained that patient is being DC;d from ER and they will need to decide if they want SNF or home. @ this time patient is undecided of what he wants to do. He is trying to find ride home. CM will update ER that if patient wants to go to [facility] they can call report and if he choses to go home they are trying to find transportation @ this time.
--- NOTE | 2025-04-26 15:03 | PC.SOCIAL ---
SNF Update Comru Access: LLETRRMP has been signed by Dr. yRan and copy of pages 1-7 placed in chart.
--- NOTE | 2025-04-26 15:22 | PC.SOCIAL ---
SNF Update CM updated AZEB Fernandez supervisior that patient has been accepted @ [facility] and can DC. Nurse will need to call report to [facility] and [facility] can transport. However, patient is currently not wanting to go and trying to find ride home. Patient has been educated that he has been DC'd. LOUANN called and updated Bethanie @ [facility].
== END 2025-04-26 18:26 | disposition home or self-care (01) ==
PROVIDERS: Emergency Provider Emergency Medicine; PCP Family Medicine
DX: R06.09 Other forms of dyspnea (principal); R53.1 Weakness; R53.81 Other malaise; Z11.52 Encounter for screening for COVID-19; I10 Essential (primary) hypertension; E78.49 Other hyperlipidemia
CPT/HCPCS: 36415; 70450; 71045; 71250; 80053; 81001; 83605; 83880; 84484; 85025; 85651; 86140; 87040; 87637; 93005; 96374; 99285; J1938

== ENCOUNTER 2025-05-18 15:28 | Observation (INO) | payer MEDICARE, SELFPAY ==
[2025-05-18 15:30] VITALS: BP 116/65; PULSE 70; RESP 18; TEMP 36.3
--- NOTE | 2025-05-18 15:31 | XRR_ITS ---
PROCEDURE INFORMATION: Exam: XR Chest Exam date and time: 05/18/2025 3:55 PM Age: 84 years old Clinical indication: Cough and dyspnea; Additional info: Dyspnea/cough TECHNIQUE: Imaging protocol: Radiologic exam of the chest. Views: 1 view. COMPARISON: CT chest con [id number] 04/26/2025 10:14 AM FINDINGS: Lungs: The lungs are hyperinflated. No consolidated infiltrates are appreciated. Pleural spaces: Unremarkable. No pleural effusion. No pneumothorax. Heart/Mediastinum: The heart is enlarged. There is calcified plaque involving the aorta. Bones/joints: Unremarkable. XR/XR chest 1V portable [id number] IMPRESSION: 1. Cardiomegaly. 2. Lung hyperinflation.
[2025-05-18 15:35] VITALS: O2SAT 100
--- OUTSIDE RECORDS SUMMARY | 2025-05-18 15:40 | XMS_ITS | Continuity of Care Document ---
Author Organization [facility] - Tate Angulo [facility] Jermain, Mariusz, [facility] ([facility] [address]) Address [address] [place] [address] Care Team Providers Care Chief Mechanical Officer Name Role Phone HUMA BARRERA Primary Care Provider Assessment Encounter Date Assessment Date Assessment LastModified by Organization Details LastModified Time 05/16/2025 05/16/2025 84-year-old male with a history of lower extremity edema presenting with worsening symptoms over the past three months. The patient's condition is complex, likely lymphedema, and his current practice of wrapping his legs in plastic bags is likely contributing to skin breakdown due to retained moisture. This may be too complex for standard home health to manage. An underlying circulatory issue needs to be evaluated. [email or web address] Not available 05/16/2025 16:00:48 Plan of Treatment Reminders Order Date Submit Date Provider Last Modified By Organization Details Last Modified Time Details Appointments None recorded. Lab None recorded. Referral home health referral 2024 025 [facility], [address] [place] [address], [id number], 10:45:26 Procedures None recorded. Surgeries None recorded. Imaging None recorded. Medication Orders None recorded. Patient TargetsNo targets recorded. Patient Instructions Encounter Date Encounter Id Patient Instructions Last Modified By Organization Details Last Modified Time 05/16/2025 [id number] (ANTHONY) ankle brachial index* [email or web address] Not available 05/18/2025 10:05:40 - A home health agency will be contacted to come to your home for an evaluation to see if they can help with your leg swelling. - Stop wrapping your legs in plastic bags, as this is likely making your skin condition worse by trapping moisture. - Take your water pill every day to help reduce fluid buildup. - An order will be placed for a test to check the circulation in your legs (ANTHONY), which will need to be done at the hospital. - If home health cannot manage your condition, we will need to consider referring you to a specialized wound care clinic. - For any other issues, you can contact the office by phone. [email or web address] Not available 05/16/2025 16:00:51 I discussed with the patient and his caregiver that his leg swelling has become quite severe and may be too complex for typical home health services. I explained that his use of plastic bags is likely harming his skin by trapping moisture and causing breakdown. We reviewed the management options, including referral to a wound care clinic, which would likely require frequent visits, or a short-term nursing facility placement, which the patient does not prefer. Given his difficulty getting out of the house, we agreed to first attempt a home health evaluation to see if they can provide the necessary skilled care, such as lymphedema wraps. I informed them that I would also order a test to check his circulation (ANTHONY), which would need to be done at the hospital. I advised the patient to take his water pill daily to help manage the fluid. [email or web address] Not available 05/16/2025 16:00:51 Reason for Referral Home Health Referral for Chr onic acquired lymphedema Wound care/lymphedema management Referring Physician: Huma Barrera, Family Medicine, Encounter Date: 05/16/2025 Problems Name Problem SNOMED Code Status Onset Date Resolution Date Notes Provider Name and Address Organization Details Recorded Time Chronic kidney disease stage 3 464261432 Active 2022 Harvey Jimenez DO [address] [place] [address], [phone] , [facility] Mariusz Aly 3 12:48:01 Hypothyroi dism 21309174 Active 2022 Harvey Jimenez DO [address] [place] [address], [phone] , [facility] Mariusz Aly 3 12:48:02 Pain of left knee joint 7473458031311 07 Active 2022 Harvey Jimenez, DO [address] [place] [address], [phone] , [facility] 3 12:48:05 Pain of left hip joint 5655224697757 00 Active 2022 Harvey Jim[address]DO [address] [place] [address], [phone] , [facility] 3 12:48:06 Congestive heart failure 22674181 Active 2023 CHETAN otto [facility] 4 08:40:51 Atrial fibrillati on 59595353 Active 2023 CHETAN otto [facility] 4 08:41:01 Physical deconditio arcadio 2152256505281 2 Active 2024 Huma Barrera MD [address] [place] [address], [phone] , [facility] 5 11:32:10 Mild protein-ca humza malnutriti on (weight for age 75-89 percent of standard) 219535798 Active 2024 Huma Barrera MD [address] [place] [address], [phone] , [facility] 5 11:32:50 Essential hypertensi on 88473002 Active 2024 Huma Barrera MD [address] [place] [address], [phone] , [facility] 5 22:39:52 Chronic acquired lymphedema 52213662 Active 2024 Huma Barrera MD [address] [place] [address], [phone] , [facility] 15:50:02 Peripheral vascular disease 249497122 Active 2024 Huma Barrera MD [address] [place] [address], [phone] , [facility] 15:52:07 Problem Notes None recorded. Medical Equipment None Reported. Allergies No known drug allergies Medications Name Sig Start Date Stop Date Status Note LastModified by Organization Details LastModified Time Prescript ion - Renewal 05/16 completed Not Available Not Available Not Available furosemid [...] TAKE 1 TABLET BY MOUTH EVERY DAY 05/16 completed Not Available Not Available Not Available levothyro xine 88 mcg tablet TAKE [...] when gain more than 3-4 pounds cs/smf; 66826; Recorded 08/22/19 8:45AM by Shannan Nugent (Authori [...] Levothyro xine Sodium daily 03/04 completed CS/smf; 31740; Recorded 04/28/20 11:52AM by Kellen Scott RN (Authori ryan [...] No t Available Vitals Date Recorded Body height Body mass index (BMI) Body weight Body temperature Heart rate Systolic And Diastolic Provider Name and Address Organization Details Last Updated DateTime 182.88 cm 18.4 kg/m2 45938.5 6 g 96.9 [degF] 54 /min 98/60 mm[Hg] Delia Uriarte [facility] 15:22:36 Social History Question Answer Notes LastModified by [email or web address] Details LastModified Time Tobacco Smoking Status Never Smoker Balbina otto [facility] 12/21/2024 10:14:43 What Is Your Level Of Caffeine Consumption? None [email or web address] Information not available 05/16/2025 Do You Or Have You Ever Used Marijuana? Never Used [email or web address] Information not available 05/16/2025 What Was The Date Of Your Most Recent Tobacco Screening? 12/21/2024 Information not available 12/21/2024 Sex: Unknown Functional Status Question Answer Note LastModified by [email or web address] Details LastModified Time Do you use any illicit or recreational drugs? No Information not available 12/21/2024 What is your level of alcohol consumption? None [email or web address] Information not available 05/16/2025 Mental Status None recorded. Family History Nothing Reported. Medical History No medical history recorded. Immunizations Vaccine Type Date Status Note Provider Nam e and Address Organization Details Recorded Time Influenza, split virus, trivalent, preservative 5 completed [facility] Available [facility] 12/27/2022 02:51:35 Influenza, split virus, trivalent, preservative 7 completed Jess[place]ero Florian [facility] 01/16/2024 11:12:20 Influenza, split virus, trivalent, preservative 8 completed [facility] 01/16/2024 11:12:20 Pneumococcal conjugate PCV 13 7 completed [facility] 01/16/2024 11:12:20 Influenza, split virus, trivalent, preservative 1 completed [facility] 01/16/2024 11:12:20 pneumococcal polysaccharide PPV23 8 completed [facility] 01/16/2024 11:12:20 Influenza, high-dose, quadrivalent, PF 1 completed [facility] 01/16/2024 11:12:19 Influenza, adjuvanted, quadrivalent, PF 2 completed [facility] 01/16/2024 11:12:19 COVID-19, mRNA, LNP-S, PF, 100 mcg/0.5mL dose or 50 mcg/0.25mL dose 1 completed [facility] 01/16/2024 11:12:19 COVID-19, mRNA, LNP-S, PF, 100 mcg/0.5mL dose or 50 mcg/0.25mL dose 1 completed [facility] 01/16/2024 11:12:20 COVID-19, mRNA, LNP-S, PF, 100 mcg/0.5mL dose or 50 mcg/0.25mL dose 1 completed Jess otto [facility] 01/16/2024 11:12:20 COVID-19, mRNA, LNP-S, bivalent, PF, 50 mcg/0.5 mL or 25mcg/0.25 mL dose 2 completed [place]ero Florian [facility] 01/16/2024 11:12:20 Influenza, high-dose, trivalent, PF 7 completed Jess otto, [facility] 01/16/2024 11:12:20 Influenza, high-dose, trivalent, PF 8 completed [place] Florian [facility] 01/16/2024 11:12:20 Past Encounters Encounter ID Performer Location Encounter Start Date Encounter Closed Date Diagnosis/Indication Diagnosis SNOMED-CT Code Diagnosis ICD10 Code Diagnosis IMO Codes Diagnosis Note [id number] Harvey Jimenez DO [facility] ([facility]) [address] [place] [phone] 05/01/2025 12:38:18 05/03/2025 12:12:27 Asthenia 43832683 R53.1 79373 Congestive heart failure 07078787 I50.9 Atrial fibrillation 4943 6004 I48.91 Essential hypertension 29051436 I10 Hypothyroidism 21993796 E03.9 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 Options discussed include home health, a wound care clinic, or a short-term intermediate stay. Given the difficulty with transporta tion, a home health evaluation will be ordered first to assess if they can provide skilled services, including lymphedema wraps, to manage the fluid. The patient was cautioned that home health may determine the case is too complex. Referral to a wound care clinic, which may require 2-3 visits per week, remains an alternativ e option. Peripheral vascular disease 625519196 I73.9 19229 To evaluate for underlying mobile equipment operator y issues, a referral for an Ankle-Brac hial Index (ANTHONY) test will be placed. This will need to be scheduled at the hospital. Health Concerns Section Related Observation LastModified by Organization Detai ls LastModified Time None Recorded Concern Status LastModified by Organization Details LastModified Time None Recorded Payers Encounter Date Sequence Insurance Name Policy Number Policy Cross Covered Member ID Cross Member ID Guarantor Name 05/16/2025 1 [employer] (MEDICARE REPLACEMENT/A DVANTAGE - PPO) Noe Mcclain [id number] Noe Mcclain Notes Date Note Type Note Provider Name and Address Organization Details Recorded Time 05/16/2025 text/html The patient is an 84 year old male presenting with worsening lower extremity edema. He reports this issue has been present for a while but has become significantly worse over the last 3 months. He has been wrapping his legs in plastic bags, which has not helped the condition. The patient reports taking a diuretic, though not consistently every day. He experiences itching and fluid leakage from his legs. He has had his circulation checked in the past. There is private pay home help scheduled to start. He finds it difficult to leave the house. Huma Barrera MD [address] [place] [address], [phone], [facility] 05/18/2025 10:43:47
--- OUTSIDE RECORDS SUMMARY | 2025-05-18 15:40 | XMS_ITS | Data Portability ---
Author Organization [facility] Mariusz Hauser [facility] Address [address] [facility] [address] [place] [address] Care Team Providers Care Housekeeping Director Name Role Phone HUMA BARRERA Primary Care Provider [phone] Assessment Encounter Date Assessment Date Assessment LastModified [...] recorded. Referral home health referral [address], [address], 10:45:26 Procedures None recorded. Surgeries None recorded. Imaging None recorded. Medication Orders lisinopril 10 mg tablet 2024 025 [facility], [address], [place], [address], 10:31:25 amiodarone 200 mg tablet 2024 025 [facility], [address], [place], [address], 10:31:30 levothyrox ine 88 mcg tablet 2024 025 [facility], [address], [place], [address], 10:31:15 furosemide 40 mg tablet 2024 025 [facility], [address], [place], [address], 10:31:27 Patient TargetsNo targets recorded. Patient Instructions Encounter Date Encounter Id Patient Instructions Last Modified By Organization Details Last Modified Time 12/05/2024 [id number] Admitted with hyponatremia and s/p fall. Treated with IV fluids and oral sodium tabs. Cr 1.3 on discharge. Admitted to SNF for therapy. Labs Thursday. [email or web address] Not available 12/05/2024 17:02:53 12/14/2024 [id number] Doing well with therapy. Weight up a few lbs, states he is eating more. Mood good overall. [email or web address] Not available 12/14/2024 16:32:14 05/01/2025 [id number] Overall weakness and inability to care for self at home, unable to care for him. 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 Plan to work with therapy to gain strength. Blood pressure too low, will d/c lisinopril as well as magnesium and vitamin D. Labs in the Morning. [email or web address] Not available 05/01/2025 12:53:38 05/16/2025 [id number] (ANTHONY) ankle brachial index* [email or web address] Not available 05/18/2025 10:05:40 - A home [...] Recorded Time Chronic kidney disease stage 3 409038009 Active 2022 Harvey Jimenez DO [address] [place] [address], [phone] , [facility] 3 12:48:01 Hypothyroi dism 71563843 Active 2022 Harvey Jimenez DO [address] [place] [address], [address] , [facility] 3 12:48:02 Pain of left knee joint 6952573599353 07 Active 2022 Harvey Jimenez DO [address] [place] [address], [phone] , [facility] 3 12:48:05 Pain of left hip joint 4895702492864 00 Active 2022 Harvey JimenezDO vanda [address] [place] [address], [address] , [facility] 3 12:48:06 Congestive heart failure 02211009 Active 2023 CHETAN otto, [facility] 4 08:40:51 Atrial fibrillati on 49750227 Active 2023 CHETAN otto, [facility] 4 08:41:01 Physical deconditio arcadio 3038374374870 2 Active 2024 Huma Barrera MD [address] [place] [address], [address] , [facility] 5 11:32:10 Mild protein-ca humza malnutriti on (weight for age 75-89 percent of standard) 132703259 Active 2024 Huma Barrera MD [address] [place] [address], [address] , [facility] 5 11:32:50 Essential hypertensi on 12356698 Active 2024 Huma Barrera MD [address] [place] [address], [address] , [facility] 5 22:39:52 Chronic acquired lymphedema 51254629 Active 2024 Huma Barrera MD [address] [place] [address], [address] , [facility] 5 15:50:02 Peripheral vascular disease 312674545 Active 2024 Huma Barrera MD [address] [place], [address] , [facility], [place] 15:52:07 Problem Notes None recorded. Medical Equipment [...] when gain more than 3-4 pounds cs/smf; 63380; Recorded 08/22/19 8:45AM by Shannan Nugent (Authori ryan through Harvey Jimenez DO), Office Visit; Refill Quantity : 30; Tablet; Not Available Not Available Not Available amiodaron e daily 03/04 completed DOC RM/bn; 9; Recorded 07/25/19 1:43PM by Qian Ya (i ryan through Adin Ernst MD), Refill Request; Refill Quantity : 0; Not Available Not Available Not Available Vitamin D3 daily active Not Available Not Available Not Available [facility]SC Levothyro xine Sodium daily 03/04 completed CS/smf; 34187; Recorded 04/28/20 11:52AM by Kellen Scott RN [...] No t Available Vitals Date Recorded Body weight Heart rate Respiratory rate Body temperature Oxygen saturation Systolic And Diastolic Provider Name and Address Organization Details Last Updated DateTime 5 38444.7 9 g 55 /min 17 /min 97.4 [degF] 99 % 130/96 mm[Hg] [facility] 5 16:57:16 Date Recorded Body weight Heart rate Respiratory rate Body temperature Oxygen saturation Systolic And Diastolic Provider Name and Address Organization Details Last Updated DateTime 5 40896.8 9 g 64 /min 16 /min 98.3 [degF] 98 % 116/68 mm[Hg] [facility] 5 16:29:54 Date Recorded Body weight Body mass index (BMI) Body height Oxygen saturation Heart rate Systolic And Diastolic Provider Name and Address Organization Details Last Updated DateTime 5 77796.5 6 g 18.4 kg/m2 182.88 cm 96 % 72 /min 112/60 mm[Hg] Balbina [facility] 5 10:17:20 Date Recorded Body height Body mass index (BMI) Body weight Heart rate Respiratory rate Body temperature Oxygen saturation Systolic And Diastolic Provider Name and Address Organization Details Last Updated DateTime 5 182.88 cm 18.7 kg/m2 06952.7 5 g 66 /min 18 /min 98.38 [degF] 98 % 126/64 mm[Hg] [facility] 5 12:47:02 Date Recorded Body height Body mass index (BMI) Body weight Body temperature Heart rate Systolic And Diastolic Provider Name and Address Organization Details Last Updated DateTime 5 182.88 cm 18.4 kg/m2 70701.5 6 g 96.9 [degF] 54 /min 98/60 mm[Hg] Delia Uriarte [facility] 5 15:22:36 Social History Question Answer Notes LastModified by Organizat ion Details LastModified Time Tobacco Smoking Status Never Smoker Balbina Medinasobeida otto [facility] 12/21/2024 10:14:43 What Is Your Level Of Caffeine Consumption? None [email or web address] Information not available 05/16/2025 Do You Or Have You Ever Used Marijuana? Never Used [email or web address] Information not available 05/16/2025 What Was The Date Of Your Most Recent Tobacco Screening? 12/21/2024 Information not available 12/21/2024 Sex: Unknown Functional Status Question Answer Note LastModified by Organizat ion Details LastModified Time Do you use any illicit or recreational drugs? No Information not available 12/21/2024 What is your level of alcohol consumption? None [email or web address] Information not available 05/16/2025 Mental Status None recorded. Family History Nothing Reported. Medical History No medical history recorded. Immunizations Vaccine Type Date Status Note Provider Nam e and Address Organization Details Recorded Time Influenza, split virus, trivalent, preservative 5 completed Not Available [facility] 12/27/2022 02:51:35 Influenza, split virus, trivalent, preservative 7 completed Jess otto [facility] 01/16/2024 11:12:20 Influenza, split virus, trivalent, preservative 8 completed Jess otto [facility] 01/16/2024 11:12:20 Pneumococcal conjugate PCV 13 7 completed Jess otto [facility] 01/16/2024 11:12:20 Influenza, split virus, trivalent, preservative 1 completed Jess Pliler [facility] 01/16/2024 11:12:20 pneumococcal polysaccharide PPV23 8 completed Jesswero [facility] 01/16/2024 11:12:20 Influenza, high-dose, quadrivalent, PF 1 completed Jesswero [facility] 01/16/2024 11:12:19 Influenza, adjuvanted, quadrivalent, PF 2 completed Jess [facility] 01/16/2024 11:12:19 COVID-19, mRNA, LNP-S, PF, 100 mcg/0.5mL dose or 50 mcg/0.25mL dose 1 completed Jess [facility] 01/16/2024 11:12:19 COVID-19, mRNA, LNP-S, PF, 100 mcg/0.5mL dose or 50 mcg/0.25mL dose 1 completed Jess [facility] 01/16/2024 11:12:20 COVID-19, mRNA, LNP-S, PF, 100 mcg/0.5mL dose or 50 mcg/0.25mL dose 1 completed Jess [facility] 01/16/2024 11:12:20 COVID-19, mRNA, LNP-S, bivalent, PF, 50 mcg/0.5 mL or 25mcg/0.25 mL dose 2 completed Jesswero [facility] 01/16/2024 11:12:20 Influenza, high-dose, trivalent, PF 7 completed Jess [facility] 01/16/2024 11:12:20 Influenza, high-dose, trivalent, PF 8 completed Jess [facility], Mariusz 01/16/2024 11:12:20 Past Encounters Encounter ID Performer Location Encounter Start Date Encounter Closed Date Diagnosis/Indication Diagnosis SNOMED-CT Code Diagnosis ICD10 Code Diagnosis IMO Codes Diagnosis Note [id number] Harvey Jimenez DO [facility] ([facility]) [address] [place] [address] 5 09/01/2022 12:29:14 09/09/2022 12:05:59 Chronic kidney disease stage 3 291674965 N18.30 Hypothyroidism 70416377 E03.9 Pain of le ft knee joint 9532466921 34476 M25.562 Pain of le ft hip joint 2448553461 38442 M25.552 [id number] Harvey Jimenez DO [facility] ([facility]) [address] [place] [address] 5 09/10/2022 12:19:48 09/17/2022 11:21:40 Venous stasis edema of bilateral lower limbs 4270687404 7067661 I87.2 Generalize d osteoarthritis 123250068 M15.9 [id number] Harvey Jimenez [facility] ([facility]) [address] [place] [address] 5 03/04/2023 11:51:42 03/04/2023 14:27:52 Pain of left hip joint 5210542714 59575 M25.552 Hypothyroidism 92133669 E03.9 Chronic ki dney disease stage 3 400035400 N18.30 Hyperglycemia 46019659 R 73.9 Systolic murmur 54401245 R01.1 [id number] Harvey Jimenez DO [facility] ([facility]) [address] [place], [place] [address] 09/03/2023 13:42:58 09/04/2023 11:00:58 Hypothyroidism 95089057 E03.9 Chronic ki dney disease stage 3 290293510 N18.30 Hyperglycemia 48654335 R 73.9 [id number] Harvey Jimenez [facility]) [address] [place], [place] [id number] 5 09/09/2023 11:52:38 09/09/2023 12:15:55 Chronic kidney disease stage 3 056560475 N18.30 Hypothyroidism 92944394 E03.9 Congestive heart failure 76329383 I50.9 Atrial fibrillation 4943 6004 I48.20 Pain of le ft hip joint 6631662280 86343 M25.552 Proximal m uscle weakness 812374850 M62.81 [id number] Harvey Jimenez DO [facility] ([facility]) [address] [place] [address] 05/02/2024 15:13:09 05/02/2024 15:47:23 Congestive heart failure 95783542 I50.9 Chronic ki dney disease stage 3 083610846 N18.30 Hypothyroidism 83623019 E03.9 [id number] Huma Barrera MD [facility] ([facility]) [address] [place] [address] 06/03/2024 11:09:48 06/03/2024 12:01:53 Physical deconditioning 7989035347 9102 R68.89 The patient would benefit from home health services, however they are limited. The patient may be need to look into other living arrangemen t such as assisted living. Atrial fibrillation 4943 6004 I48.91 Rate controlled on current medication s. Mild prote in-calorie malnutrition (weight for age 75-89 percent of standard) 053625758 E44.1 We will help patient get establishe d with Meals on Wheels and hopefully arrange better living arrangemen ts for the patient. [id number] Harvey Jimenez DO [facility] ([facility]) [address] [place] [phone] 12/05/2024 14:12:13 12/06/2024 10:59:59 Post-discharge follow-up 759289007 Z09 952545 Hyponatremia 15809526 E8 7.1 38229 History of fall 19152227 9 Z91.81 3963096 Atrial fibrillation 4943 6004 I48.91 Chronic ki dney disease stage 3 315070470 N18.30 Congestive heart failure 16883643 I50.9 Hypothyroidism 23746958 E03.9 [id number] Harvey Jimenez DO [facility] ([facility]) [address] [place] [address] 12/14/2024 09:26:51 12/20/2024 08:32:50 Congestive heart failure 54564775 I50.9 Atrial fibrillation 4943 6004 I48.91 Physical deconditioning 7599992850 9102 R68.89 [id number] Huma Barrera MD [facility] ([facility]) [address] [place] [address] 12/21/2024 09:57:41 12/21/2024 11:14:21 Atrial fibrillation 35465294 I48.91 Rate controlled on current medication s. Congestive heart failure 62442643 I50.9 Continue Lasix Hypothyroidism 50777470 E03.9 Continue levothyrox ine. Essential hypertension 97449412 I10 Continue blood pressure medication s, however recommend checking blood pressure twice daily and provide a log of those readings over the next week. [id number] Harvey Jimenez DO [facility] ([facility]) [address] [place] [address] 05/01/2025 12:38:18 05/03/2025 12:12:27 Asthenia 81331242 R53.1 16459 Congestive heart failure 33817568 I50.9 Atrial fibrillation 4943 6004 I48.91 Essential hypertension 66359766 I10 Hypothyroidism 90245770 E03.9 Mild prote in-calorie malnutrition (weight for age 75-89 percent of standard) 722505665 E44.1 Chronic ki dney disease stage 3 070675409 N18.30 Physical deconditioning 1388217781 9102 R68.89 [id number] Huma Barrera MD [facility] ([facility]) [address] [place] [phone] 05/16/2025 15:12:51 05/16/2025 16:10:33 Chronic acquired lymphedema 25117120 I89.0 4586 The patient's condition is complex and likely requires specialize d care. Options discussed include home health, a wound care clinic, or a short-term jail stay. Given the difficulty with transporta tion, [...] an alternativ e option. Peripheral vascular disease 304348207 I73.9 36470 To evaluate for underlying shoe cobbler y issues, a referral for an Ankle-Brac [...] (MEDICARE REPLACEMENT/A DVANTAGE - PPO) Noe Mcclain [id number] Noe Mcclain Notes Date Note Type Note Provider Name and Address Organization Details Recorded Time 5 text/html HypothyroidReported by PatientHPIFor onset/timing, patient reportsdx date: ____. For duration, patient reports>12 months. For associated symptoms, patient reportsno weakness,no lightheadedness,no fatigue, andno cold intolerance.ROS as noted in the HPI new admit to snf. Harvey Jimenez DO [address] [place] [address], [phone], [facility] 12/05/2024 17:06:31 5 text/html HypothyroidReported by PatientHPIFor onset/timing, patient reportsdx date: ____. For duration, patient reports>12 months. For associated symptoms, patient reportsno weakness,no lightheadedness,no fatigue, andno cold intolerance.ROS as noted in the HPI no complaints per staff. Pt reports he is working with therapy. Harvey Jimenez DO [address] [place] [address], [address], [facility] 12/19/2024 13:45:04 5 text/html Annual WellnessReported by PatientROS as noted in the HPI Patient is here today for a f/u after hospitalization and Rehab stay11/28 Pt had a fall on admission was found to have hyponatremiaDischarged from Hospital to [facility] 7/2Pt discharged from [facility] 3 or 4 days ago pt and [...] any medications this morning Huma Barrera MD [address] [place] [address], [phone], [facility] 01/01/2025 22:40:09 5 text/html HypothyroidReported by PatientHPIFor onset/timing, patient reportsdx date: ____. For duration, patient reports>12 months. For associated symptoms, patient reportsno weakness,no lightheadedness,no fatigue, andno cold intolerance.ROS as noted in the HPI new admit to snf, unable to stay at home longer, unable to care for him Harvey Jimenez, [address] [place] [address], [phone], [facility] 05/01/2025 16:19:53 5 text/html The patient is an 84 year [...] to leave the house. Huma Barrera MD [address] [place] [address], [address], [facility] 05/18/2025 10:43:47
--- OUTSIDE RECORDS SUMMARY | 2025-05-18 15:40 | XMS_ITS | Continuity of Care Document ---
Author Organization [facility] Mariusz Aly, [facility] ([facility]) Address [address] [place] [address] Care Team Providers Care Screen Printing Press Operator Name Role Phone LUCAS BARRERA Primary Care Provider Assessment No assessment recorded. Plan of Treatment Reminders Order Date Submit Date Provider Last Modified By Organization Details Last Modified Time Details Appointments None record ed. Lab None record ed. Referral None record ed. Procedures None record ed. Surgeries None record ed. Imaging None record ed. Medication Orders None record ed. Patient TargetsNo targets recorded. Patient Instructions Encounter Date Encounter Id Patient Instructions Last Modified By Organization Details Last Modified Time 05/01/2025 [id number] Overall weakness and inability to care for self at home, unable to care for him. 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 Plan to work with therapy to gain strength. Blood pressure too low, will d/c lisinopril as well as magnesium and vitamin D. Labs in the Morning. [email or web address] Not available 05/01/2025 12:53:38 Reason for Referral None Reported. Problems Name Problem SNOMED Code Status Onset Date Resolution Date Notes Provider Name and Address Organization Details Recorded Time Chronic kidney disease stage 3 676112967 Active 2022 Harvey Jimenez DO [address] [place] [address], [phone] , [facility] Mariusz Aly 12:48:01 Hypothyroi dism 86854330 Active 2022 Harvey Jimenez DO [address] [place] [address], [phone] , [facility] Mariusz Aly 3 12:48:02 Pain of left knee joint 7414311557654 07 Active 2022 Harvey JimenezDO [address] [place] [address], [phone] , [facility] 3 12:48:05 Pain of left hip joint 1121103379172 00 Active 2022 [address] [place] [address], [phone] , [facility] 3 12:48:06 Congestive heart failure 70940245 Active 2023 CHETAN otto [facility] 4 08:40:51 Atrial fibrillati on 86504123 Active 2023 CHETAN otto [facility] 4 08:41:01 Physical deconditio arcadio 0253385709418 2 Active 2024 Lucas Barrera MD [address] [place], [place] [phone] , [facility] 5 11:32:10 Mild protein-ca humza malnutriti on (weight for age 75-89 percent of standard) 760085159 Active 2024 Lucas Barrera MD [address] [place], [place] [phone] , [facility] 5 11:32:50 Essential hypertensi on 02221060 Active 2024 Lucas Barrera MD [address] [place] [phone] , [facility] 5 22:39:52 Chronic acquired lymphedema 40733072 Active 2024 Lucas Barrera MD [address] [place], [place] [phone] , [facility] 15:50:02 Peripheral vascular disease 156530490 Active 2024 Lucas Barrera MD [address] [place], [address] , [facility] 15:52:07 Problem Notes None recorded. Medical [...] when gain more than 3-4 pounds cs/smf; 72806; Recorded 08/22/19 8:45AM by Shannan Nugent (Authori zed through Harvey Jimenez DO), Office Visit; Refill [...] Levothyro xine Sodium daily 03/04 completed CS/smf; 69236; Recorded 04/28/20 22 11:52AM by Kellen Scott RN (Authori [...] Organization Details Last Updated DateTime 182.88 cm 18.7 kg/m2 69567.7 5 g 66 /min 18 /min 98.38 [degF] 98 % 126/64 mm[Hg] CHETAN SCOTT [facility] 12:47:02 Social History Question Answer Notes LastModified by Organizat ion Details LastModified Time Tobacco Smoking Status [facility] 12/21/2024 10:14:43 What Is Your Level Of Caffeine Consumption? None [email or web address] Information not available 05/16/2025 Do You Or Have You Ever Used Marijuana? Never Used [email or web address] Information not available 05/16/2025 What Was The Date Of Your Most Recent Tobacco Screening? 12/21/2024 Information not available 12/21/2024 Sex: Unknown Functional Status Question Answer Note LastModified by Organizat ion Details LastModified Time Do you use any illicit or recreational drugs? No Information not available 12/21/2024 What is your level of alcohol consumption? None Information not available 05/16/2025 Mental Status None recorded. Family History Nothing Reported. Medical History No medical history recorded. Immunizations Vaccine Type Date Status Note Provider Nam e and Address Organization Details Recorded Time Influenza, split virus, trivalent, preservative 5 completed Not Available [facility] 12/27/2022 02:51:35 Influenza, split virus, trivalent, preservative 7 completed [place] Florian [facility] 01/16/2024 11:12:20 Influenza, split virus, trivalent, preservative 8 [facility] 01/16/2024 11:12:20 Pneumococcal conjugate PCV 13 7 completed [place] Anival [facility] 01/16/2024 11:12:20 Influenza, split virus, trivalent, preservative 1 completed [place] Florian [facility] 01/16/2024 11:12:20 pneumococcal polysaccharide PPV23 8 [facility] 01/16/2024 11:12:20 Influenza, high-dose, quadrivalent, PF 1 completed [place] Anival [facility] 01/16/2024 11:12:19 Influenza, adjuvanted, quadrivalent, PF 2 completed [facility] 01/16/2024 11:12:19 COVID-19, mRNA, LNP-S, PF, 100 mcg/0.5mL dose or 50 mcg/0.25mL dose 1 [facility] 01/16/2024 11:12:19 COVID-19, mRNA, LNP-S, PF, 100 mcg/0.5mL dose or 50 mcg/0.25mL dose 1 completed [place] Florian [facility] 01/16/2024 11:12:20 COVID-19, mRNA, LNP-S, PF, 100 mcg/0.5mL dose or 50 mcg/0.25mL dose 1 completed Jess otto [facility] 01/16/2024 11:12:20 COVID-19, mRNA, LNP-S, bivalent, PF, 50 mcg/0.5 mL or 25mcg/0.25 mL dose 2 completed Jess otto [facility] 01/16/2024 11:12:20 Influenza, high-dose, trivalent, PF 7 completed Jess otto [facility] 01/16/2024 11:12:20 Influenza, high-dose, trivalent, PF 8 completed Jess otto [facility] 01/16/2024 11:12:20 Past Encounters Encounter ID Performer Location Encounter Start Date Encounter Closed Date Diagnosis/Indication Diagnosis SNOMED-CT Code Diagnosis ICD10 Code Diagnosis IMO Codes Diagnosis Note [id number] Harvey NielsonftDO [facility] ([facility]) [address] [place] [phone] 05/01/2025 12:38:18 05/03/2025 12:12:27 Asthenia 54807838 R53.1 45856 Congestive heart failure 56451314 I50.9 Atrial fibrillation 4943 6004 I48.91 Essential hypertension 17759018 I10 Hypothyroidism 49984386 E03.9 Mild prote in-calorie malnutrition (weight for age 75-89 percent of standard) 507140633 E44.1 Chronic ki dney disease stage 3 343628032 N18.30 Physical deconditioning 6306000439 9102 R68.89 Health Concerns Section Related Observation LastModified by Organization Detai ls LastModified Time None Recorded Concern Status LastModified by Organization Details LastModified Time None Recorded Payers Encounter Date Sequence Insurance Name Policy Number Policy Cross Covered Member ID Cross Member ID Guarantor Name 05/01/2025 1 [employer] (MEDICARE REPLACEMENT/A DVANTAGE - PPO) Noe Mcclain [id number] Noe Mcclain Notes Date Note Type Note Provider Name and Address Organization Details Recorded Time 5 text/html HypothyroidReported by PatientHPIFor onset/timing, patient reportsdx date: ____. For duration, patient reports>12 months. For associated symptoms, patient reportsno weakness,no lightheadedness,no fatigue, andno cold intolerance.ROS as noted in the HPI new admit to snf, unable to stay at home longer, unable to care for him Harvey Jimenez, [address], [phone], [facility] [place] [facility] 05/01/2025 16:19:53
--- NOTE | 2025-05-18 16:01 | ECG_ITS ---
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: : 1940 Requested By: Yariel Otoole Order Number: [id number] Reading MD: DYAN NEGRETE Measurements Intervals [place] Rate: 69 P: 0 MN: 0 QRS: 97 QRSD: 144 T: -13 QT: 425 QTc: 456 Interpretive Statements ATRIAL FIBRILLATION BORDERLINE RIGHT AXIS DEVIATION [QRS AXIS > 90] INTRAVENTRICULAR CONDUCTION DELAY [130+ ms QRS DURATION] POSSIBLE INFERIOR MYOCARDIAL INFARCTION , PROBABLY OLD [30 ms Q WAVE IN II/aVF] Compared to ECG 04/26/2025 12:30:03 Myocardial infarct finding now present Electronically Signed On 05-24-2025 20:24:20 THERAPY SITE COORDINATOR by DYAN NEGRETE [email or web address]
[2025-05-18 16:09] LABS: Hematocrit 33.9 % (37-53); Hemoglobin 11.40 g/dL (11.27-16.99); Mean Corpuscular HGB Conc 33.6 g/dL (30-55); Mean Corpuscular Hemoglobin 32.9 pg (27-33); Mean Corpuscular Volume 98.0 fl (82-101); Nucleated Red Blood Cells % 0 %; Platelet Count 364 10^3/cmm (157-399); Red Blood Count 3.46 10^6/uL (3.85-5.65); White Blood Count 5.42 10^3/uL (3.29-11.43)
[2025-05-18 16:27] LABS: Alanine Aminotransferase 26 U/L (0-41); Albumin Level 3.4 g/dL (3.5-5.2); Alkaline Phosphatase 50 U/L (40-130); Anion Gap 17.5 (5-19); Aspartate Amino Transferase 44 U/L (0-40); Blood Urea Nitrogen 75 mg/dL (8-23); Calcium 9.8 mg/dL (8.5-10.5); Carbon Dioxide 24 mmol/L (22-29); Chloride 89 mmol/L (98-107); Globulin 4.7 g/dL (1.3-4.6); Glucose 95 mg/dL (65-115); Osmolality Calculated 282 mOsm/kg (285-295); Potassium 5.5 mmol/L (3.5-5.1); Sodium 125 mmol/L (136-145); Total Protein 8.1 g/dL (6.6-8.7)
--- NOTE | 2025-05-18 16:44 | ED_ITS ---
HPI - General Adult 2 General: Chief complaint: General Medical Stated complaint: SWOLLEN LEGS Time Seen by Provider: 05/18/25 15:31 History of Present Illness: 84-year-old male presents emergency room with red swollen inflamed legs for the last several days. He has been very weak. He has been having drainage from the legs. He has been taking diuretics for the last couple of days with no improvement. He denies any fever sweats or chills he is not been on any antibiotics. Patient has a history of atrial fibrillation aortic regurgitation he is not on any anticoagulants he is on amiodarone and lisinopril. Associated symptoms: Deny chest pain, dyspnea or rash Related Data Home Medications ?Medication ?Instructions ?Recorded ?Confirmed amiodarone 200 mg tablet 200 mg PO DAILY 10/11/20 magnesium oxide 400 mg (241.3 mg 400 mg PO DAILY 10/1105/19/25 magnesium) tablet (MagOx) cholecalciferol (vitamin D3) 125 375 mcg PO DAILY 04/0205/19/25 mcg (5,000 unit) tablet (Vitamin D3) apixaban 5 mg tablet (Eliquis) 5 mg PO BID 05/19/25 levothyroxine 100 mcg tablet 100 mcg PO QAM 05/19/25 1 07/20/24 Previous Rx's ?Medication ?Instructions ?Recorded cefdinir 300 mg capsule 300 mg PO BID 4 days #8 caps 05/20/25 doxycycline hyclate 100 mg tablet 100 mg PO BID 4 days #8 tabs 05/20/25 Allergies Allergy/AdvReac Type Severity Reaction Status Date / Time No Known Allergies Allergy Unverified 12/13/20 13:43 Review of Systems 2 Const: Denies: fever(s) or chills Card: Denies: chest pain Resp: Denies: dyspnea GI: Denies: abdominal pain : Denies: dysuria, urinary frequency or urinary urgency Musc: Denies: neck pain or back pain Skin/Breast: Denies: rash PFSH ED 2 PFSH: Medical History Mitral regurgitation Atrial fibrillation Hypertension Hypothyroidism Peripheral vascular complications Peripheral artery insufficiency Endogenous hyperlipidemia Family History Other Hypertension Social History Alcohol intake: never Substance/Drug Use: never Household members: spouse Marital status: Physical Exam 2 Const: COMMON NORMALS: no acute distress GENERAL APPEARANCE: cooperative and comfortable ORIENTATION/CONSCIOUSNESS: Yes awake, Yes oriented to person, Yes oriented to place and Yes oriented to time HENMT: COMMON NORMALS: normocephalic, atraumatic and hearing grossly normal bilaterally HEAD & SCALP: normocephalic and atraumatic Resp: COMMON NORMALS: normal respiratory effort, No retractions, No use of accessory muscles and clear to auscultation bilaterally AUSCULTATION: clear to auscultation bilaterally Cardio: COMMON NORMALS: regular rate, regular rhythm and No murmurs present (Cardio) RATE: regular rate RHYTHM: regular rhythm GI: COMMON NORMALS: Soft to palpation and No hepatosplenomegaly present A USCULTATION: Yes normoactive bowel sounds PALPATION: Yes Soft to palpation, No Tenderness to palpation present (GI), No Guarding due to palpation present (GI) and Yes No hepatosplenomegaly present Extremity: COMMON NORMALS: normal to inspection, capillary refill normal, no clubbing, cyanosis or edema, no calf tenderness and no pedal edema Neuro: SENSORIUM/ORIENTATION: Yes oriented to person, Yes oriented to place and Yes oriented to time Skin: COMMON NORMALS: no rashes or lesions noted GENERAL SKIN EXAM: no rashes or lesions noted Course 2 Vital Signs: Vital signs: Vital Signs Temperature 98.2 F 05/20/25 17:45 Pulse Rate 69 05/20/25 17:45 Respiratory Rate 16 05/20/25 17:45 Blood Pressure 112/53 05/20/25 17:45 Pulse Oximetry 97 05/20/25 17:45 Oxygen Delivery Me thod Room Air 05/20/25 16:00 MDM - General Adult Medical Decision Making Medical decision making Social determinants: Difficult time with ambulation relies on his for assistance with ADLs I reviewed the patient's medical record. I reviewed the patient's current home meds. Alternate historians: contributes to his history Differential diagnosis: Cellulitis congestive heart failure lower extremity edema chronic venous stasis acute kidney injury Lab Review: Mild hyponatremia hyperkalemia. Imaging: Venous duplex bilateral lower extremities negative for DVT Assessment of risk Level of risk: Moderate to high Hospitalization considerations: Admit for cellulitis acute kidney injury Reexamination: Unchanged Assessment and plan: Labs reviewed patient has hyper kalemia and mild hyponatremia. Has chronic venous stasis ulcers with onset of cellulitis with drainage and skin breakdown and antibiotics initiated cultures done discussed with hospitalist will admit. Reviewed findings with patient as well. Discussed plan for admission. Lab Data 05/20/25 03:38 05/20/25 03:38 Radiology Impressions Chest X-Ray 05/18/25 15:31 IMPRESSION: 1. Cardiomegaly. 2. Lung hyperinflation. Renal Ultrasound 05/19/25 20:05 Impression: 1. Negative renal ultrasound. 2. Bladder volume of 181 mL Laboratory Results WBC 5.42 10^3/uL (3.29-11.43) 05/18/25 15:58 RBC 3.46 10^6/uL (3.85-5.65) L 05/18/25 15:58 Hgb 11.40 g/dL (11.27-16.99) 05/18/25 15:58 Hct 33.9 % (37-53) L 05/18/25 15:58 MCV 98.0 fl (82-101) 05/18/25 15:58 MCH 32.9 pg (27-33) 05/18/25 15:58 MCHC 33.6 g/dL (30-55) 05/18/25 15:58 RDW 15.0 % (12.1-15.1) 05/18/25 15:58 Plt Count 364 10^3/cmm (157-399) 05/18/25 15:58 MPV 9.2 fL (7.4-10.4) 05/18/25 15:58 Neut % (Auto) 74.5 % 05/18/25 15:58 Lymph % (Auto) 9.4 % 05/18/25 15:58 Mcculloch % (Auto) 13.3 % 05/18/25 15:58 Eos % (Auto) 1.7 % 05/18/25 15:58 Baso % (Auto) 0.7 % 05/18/25 15:58 Neut # (Auto) 4.04 10^3/uL (1.8-7.7) 05/18/25 15:58 Lymph # (Auto) 0.5 10^3/uL (0.8-4.8) L 05/18/25 15:58 Mcculloch # (Auto) 0.7 10^3/uL (0.2-0.9) 05/18/25 15:58 Eos # (Auto) 0.1 10^3/uL (0.0-0.8) 05/18/25 15:58 Baso # (Auto) 0.0 10^3/uL (0.0-0.1) 05/18/25 15:58 Nucleated RBC % (auto) 0 % 05/18/25 15:58 Nucleated RBCs # 0.0 /100WBC 05/18/25 15:58 Sodium 125 mmol/L (136-145) L 05/18/25 15:58 Potassium 5.5 mmol/L (3.5-5.1) H 05/18/25 15:58 Chloride 89 mmol/L (98-107) L 05/18/25 15:58 Carbon Dioxide 24 mmol/L (22-29) 05/18/25 15:58 Anion Gap 17.5 (5-19) 05/18/25 15:58 BUN 75 mg/dL (8-23) H 05/18/25 15:58 Creatinine 1.7 mg/dL (0.7-1.2) H 05/18/25 15:58 GFR Calculation Not Reportable 05/18/25 15:58 Glucose 95 mg/dL (65-115) 05/18/25 15:58 Calculated Osmolality 282 mOsm/kg (285-295) L 05/18/25 15:58 Lactic Acid 0.8 mmol/L (0.5-2.2) 05/18/25 15:58 Calcium 9.8 mg/dL (8.5-10.5) 05/18/25 15:58 Magnesium 2.6 mg/dL (1.7-2.3) H 05/18/25 15:58 Total Bilirubin 0.7 mg/dL (0.15-1.2) 05/18/25 15:58 AST 44 U/L (0-40) H 05/18/25 15:58 ALT 26 U/L (0-41) 05/18/25 15:58 Alkaline Phosphatase 50 U/L (40-130) 05/18/25 15:58 Total Protein 8.1 g/dL (6.6-8.7) 05/18/25 15:58 Albumin 3.4 g/dL (3.5-5.2) L 05/18/25 15:58 Globulin 4.7 g/dL (1.3-4.6) H 05/18/25 15:58 All radiology interpretation(s) finalized by discharge Discharge Plan Discharge Patient Disposition: Admitted As Inpatient Admit Provider: Reji Espinosa Clinical Impression: Cellulitis, Leg edema, Chronic venous stasis, WILLIE (acute kidney injury) Condition: Stable Coding Level of Care Code ED 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
--- NOTE | 2025-05-18 16:48 | USCV_ITS ---
Neo Mcclain Age: 84 Gender: M : 1940 Exam Date: 05/18/2025 18:39 Ordering Phys: Yariel Samuel DO Technologist: Ángel Castro [place] [facility] [place]: lower extremity swelling, bilateral gaiter zone pigmentation, Prior bilateral DVTs in remote past per patient. HISTORY: lower extremity swelling, bilateral gaiter zone pigmentation, Prior bilateral DVTs in remote past per patient. PROCEDURES: Venous duplex imaging was performed in bilateral lower extremities. The following venous structures were evaluated: common femoral vein, profunda vein, proximal portion of the greater saphenous vein, superficial femoral vein, and the popliteal vein. In addition, the posterior tibial and peroneal veins were evaluated. Serial compression, augmentation maneuvers, and spectral Doppler flow evaluation were performed, which were normal. Bilaterally, the common femoral, superficial femoral, profunda femoral, popliteal, posterior tibial, greater saphenous veins, and the peroneal veins were identified and interrogated in the standard fashion. These veins were found to be easily compressible with spontaneous blood flow. No evidence of thrombus noted. Highly pulsatilve, bilateral lower extremity venous compartments suggest CHF / venous compartment overload. Bilaterally, the superficial femoral veins are small in calibre, with extensive mural thrombus and chronic changes from old DVT. No acute DVT is present at this time. CONCLUSIONS Bilateral common femoral veins are small in caliber with sequelae of chronic DVT No evidence of acute DVT Adam Nixon MD (Electronically Signed) Final Date: 19 May 2025 18:44 S
[2025-05-18 17:18] LABS: Lactic Sepsis W/Reflex 0.8 mmol/L (0.5-2.2)
[2025-05-18] MEDS: calcium chloride 10% Syr 10 mL 1 GM IVP (17:29)
[2025-05-18 17:32] VITALS: BP 123/70; PULSE 68; O2SAT 100
[2025-05-18 18:13] VITALS: BMI 18.3
[2025-05-18 18:13] LABS: Magnesium 2.6 mg/dL (1.7-2.3)
[2025-05-18 18:31] VITALS: BP 131/68; PULSE 81; O2SAT 99
--- NOTE | 2025-05-18 18:55 | PM.HP ---
Providers/Chief Complaint Admitting Physician: Reji Espinosa Primary Care Provider: Lucas Barrera MD Chief Complaint: SWOLLEN LEGS History of Present Illness Noe Mcclain is a 84 year old male with history of atrial fibrillation (on amiodarone), hypertension, hypothyroidism, hyponatremia, prior acute kidney injury (WILLIE) with possible chronic kidney disease (CKD), aortic and mitral valvular regurgitation, osteoarthritis, and memory issues presents with several days of bilateral leg redness, warmth, and inflamed, weeping skin. Denies fever, shortness of breath, cough, nausea, vomiting, or diarrhea. Uses a wheelchair at home and typically keeps legs dependent; reports difficulty elevating legs. Home health nurse is working to obtain a lift chair to assist with leg elevation. Reports taking a ?water pill.? Reports taking Eliquis. Denies medication allergies. Denies tobacco, alcohol, and illicit drug use. Does not use CPAP or home oxygen. Review of Systems Const: Denies: fever(s), chills, body aches or malaise ENMT: Denies: throat pain Card: Denies: chest pain, edema, pre-syncope or dyspnea on exertion Resp: Denies: dyspnea, productive cough, change in phlegm color or hemoptysis GI: Denies: abdominal pain, nausea, vomiting, diarrhea, constipation, hematochezia or melena : Denies: flank pain, difficulty urinating, urinary frequency or hematuria Musc: Denies: back pain, joint swelling or joint redness Skin/Breast: Reports: rash and skin swelling; Denies: new lesions Neuro: Denies: headache(s) or confusion Medications/Allergies Home Medications ?Medication ?Instructions ?Recorded ?Confirmed ?Last Taken ?Type amiodarone 200 mg tablet 200 mg PO DAILY 10/11/20 04/26/25 04/25/25 History lisinopril 10 mg tablet 10 mg PO DAILY 10/11/20 04/26/25 04/25/25 History magnesium oxide 400 mg (241.3 mg 400 mg PO DAILY 10/11/20 04/26/25 04/25/25 History magnesium) tablet (MagOx) cholecalciferol (vitamin D3) 125 375 mcg PO DAILY 04/26/25 04/26/25 04/25/25 History mcg (5,000 unit) tablet (Vitamin D3) levothyroxine 88 mcg tablet 88 mcg PO QAM 04/26/25 04/26/25 04/26/25 History Allergies Allergy/AdvReac Type Severity Reaction Status Date / Time No Known Allergies Allergy Unverified 12/13/20 13:43 PFSH Acute PFSH: Medical History Mitral regurgitation Atrial fibrillation Hypertension Hypothyroidism Peripheral vascular complications Peripheral artery insufficiency Endogenous hyperlipidemia Family History Other Hypertension Social History Alcohol intake: never Substance/Drug Use: never Household members: spouse Marital status: Vitals/I&O/Wt Last Vital Signs Temp 97.4 F L 05/18/25 15:30 Pulse 81 05/18/25 18:31 Resp 18 05/18/25 15:30 BP 131/68 05/18/25 18:31 Pulse Ox 99 05/18/25 18:31 O2 Del Method Room Air 05/18/25 18:13 05/18/25 05/18/25 05/18/25 06:59 14:59 22:59 Intake Total 500 / 500 Balance 500 / 500 Weight last 48 hrs Weight 63.185 kg Weight 61.689 kg Physical Exam Narrative: Accompanied by his Const: COMMON NORMALS: patient oriented x3 and alert GENERAL APPEARANCE: cooperative ORIENTATION/CONSCIOUSNESS: Yes awake HENMT: COMMON NORMALS: oropharynx normal Neck/C-Spine: COMMON NORMALS: no JVD Resp: COMMON NORMALS: normal respiratory effort and clear to auscultation bilaterally AUSCULTATION: clear to auscultation bilaterally Cardio: COMMON NORMALS: no JVD, regular rhythm, S1 normal heart sound present, S2 normal heart sound present and No murmurs present (Cardio) RHYTHM: regular rhythm HEART SOUNDS: S1 normal heart sound present and S2 normal heart sound present GI: COMMON NORMALS: Normal to inspection, nondistended, normoactive bowel sounds present, Soft to palpation and non-tender PALPATION: Yes Soft to palpation Extremity: COMMON NORMALS: no joint enlargement GENERAL: Yes edema (3+, with breakdown, weeping) Neuro: COMMON NORMALS: patient oriented x3 and moves all extremities SENSORIUM/ORIENTATION: Yes alert Skin: COMMON NORMALS: no rashes or lesions noted GENERAL SKIN EXAM: erythema Data 05/18/25 15:58 05/18/25 15:58 Micro: Microbiology 05/18/25 17:13 Blood Culture - Preliminary Blood SPECIMEN COLLECTED 05/18/25 15:58 Blood Culture - Preliminary Blood SPECIMEN COLLECTED A&P Assessment and plan 1. Cellulitis: Bilateral lower extremity erythema and weeping drainage : Several days of bilateral leg redness, warmth, and weeping drainage without systemic symptoms; exam shows erythema, warmth, and weeping. Concern discussed for early infection versus changes related to venous stasis. Reviewed vitals, CBC, CMP, magnesium, chest x-ray, EKG, prior cultures, ED provider note. Discussed with ED provider. - Empiric antibiotic for now. Ceftriaxone, linezolid. Monitor for cytopenia. Obtain MRSA PCR. - Elevate legs - Wound care Follow-up after discharge for consideration compression-type dressings/bandages 2. Leg edema: Elevate lower extremities. Cautious diuretic. Monitor for risk of hypovolemia, dehydration. Ports on chronic anticoagulation with Eliquis. 3. Chronic venous stasis: Chronic venous insufficiency : Legs kept dependent in wheelchair with difficulty elevating; clinician explained venous return impairment likely contributing to weeping and erythema. - Strict leg elevation emphasized - Wound care involvement - Compression dressing system to assist venous return 4. Hyponatremia: ED basic metabolic panel shows sodium 125. Possibly hypervolemic hyponatremia with low show edema. Weeping. Regular diet-fluid restriction. Lasix. Monitor for risk of WILLIE. Hypotension. 5. Hyperkalemia: ED labs show potassium 5.5. Low potassium diet. - diuretic, carefully, because of blood pressure - Recheck chemistry 6. WILLIE (acute kidney injury): ED creatinine 1.7 with prior creatinine 1.0 in April; WILLIE noted. With hyperkalemia. Hold lisinopril. Caution with diuretic. Reassess renal function. Monitor intake and output. He denies NSAID use. Monitor blood pressure for any hypotension. Albumin is noted low, will give a dose of albumin. Obtain kidney and bladder ultrasound. Obtain urine studies. Plan: Atrial fibrillation : Known atrial fibrillation; ED ECG shows atrial fibrillation. Patient reports taking Eliquis. Amiodarone. Hypertension : History of hypertension; ED BP 123/70. Hypothyroidism : Resume levothyroxine Memory issues Possible chronic kidney disease (CKD) Aortic and mitral valvular regurgitation Osteoarthritis : History noted; no acute management discussed. Code status: DNR preference : Code status discussed; patient states preference to not receive CPR and to focus on comfort if heart or breathing stop. - Update code status to DNR; prioritize comfort-focused measures in the event of cardiopulmonary arrest PDMP PDMP Reviewed: Not Reviewed Attestations Medical Necessity Statement*: Admission over 2 midnights anticipated for assessment of management of cellulitis superimposed on chronic venous stasis, fluid overload with 3+ edema, weeping. WILLIE. and High MDM includes amount and/or complexity of data reviewed/ordered [ resulted lab(s)/test(s), ordered lab(s)/test(s) and other healthcare professional discussion] and described risk of complication, morbidity or mortality of management as documented Diagnoses Cellulitis L03.90 Leg edema R60.0 Chronic venous stasis I87.8 Hyponatremia E87.1 Hyperkalemia E87.5 WILLIE (acute kidney injury) N17.9
[2025-05-18 20:00] VITALS: BP 136/72; PULSE 75; RESP 15; TEMP 36.8; O2SAT 96
[2025-05-18] MEDS: FUROsemide 10 mg/mL SDV 2mL 20 MG IVP (20:31)
[2025-05-18] MEDS: cefTRIAXone 1,000 mg SDV 1000 MG IVP (20:50)
[2025-05-18] MEDS: linezolid premix 600 MG/300 ML PREMIX 300 MG IV (20:50)
[2025-05-18] MEDS: albumin 25 G/100 ML BAG 60 G IV (21:55)
[2025-05-19] VITALS (7 sets, daily range): BP systolic 101–112; BP diastolic 44–61; PULSE 64–89; RESP 15–17; TEMP 36.7–37.1; O2SAT 94–99; BMI 18.8
[2025-05-19 04:53] LABS: Hematocrit 26.1 % (37-53); Hemoglobin 8.90 g/dL (11.27-16.99); Mean Corpuscular HGB Conc 34.1 g/dL (30-55); Mean Corpuscular Hemoglobin 33.3 pg (27-33); Mean Corpuscular Volume 97.8 fl (82-101); Nucleated Red Blood Cells % 0 %; Platelet Count 252 10^3/cmm (157-399); Red Blood Count 2.67 10^6/uL (3.85-5.65); White Blood Count 5.64 10^3/uL (3.29-11.43)
[2025-05-19 05:22] LABS: Alanine Aminotransferase 18 U/L (0-41); Albumin Level 2.9 g/dL (3.5-5.2); Alkaline Phosphatase 33 U/L (40-130); Anion Gap 16.5 (5-19); Aspartate Amino Transferase 33 U/L (0-40); Blood Urea Nitrogen 61 mg/dL (8-23); Calcium 9.2 mg/dL (8.5-10.5); Carbon Dioxide 23 mmol/L (22-29); Chloride 94 mmol/L (98-107); Globulin 3.1 g/dL (1.3-4.6); Glucose 81 mg/dL (65-115); Osmolality Calculated 284 mOsm/kg (285-295); Potassium 4.5 mmol/L (3.5-5.1); Sodium 129 mmol/L (136-145); Total Protein 6.0 g/dL (6.6-8.7)
[2025-05-19 07:38] LABS: MRSA PCR OZH (swab) MRSA Detected (Negative)
[2025-05-19] MEDS: linezolid premix 600 MG/300 ML PREMIX 300 MG IV ×2 (08:10→20:06)
--- NOTE | 2025-05-19 20:05 | US_ITS ---
WS: [id number] Bilateral renal ultrasound, 05/19/2025 Clinical Data: WILLIE Comparison: None. Findings: The right kidney measures 9.5 cm x 4.3 cm x 4.4 cm and the left kidney is 8.8 cm x 4.7 cm x 3.9 cm. There are no cysts, masses or hydronephrosis. The renal cortical margin is normal. No renal calculi are seen. The abdominal aorta and inferior vena cava show no vascular abnormalities. The bladder was scanned and showed a volume of 181 mL. The patient was unable to void. The bladder was drained with the addition of a Metz catheter.. US/US renal BI w/PV bladder [id number] Impression: 1. Negative renal ultrasound. 2. Bladder volume of 181 mL
[2025-05-19] MEDS: cefTRIAXone 1,000 mg SDV 1000 MG IVP (20:06)
--- NOTE | 2025-05-19 22:06 | P.PN_ITS ---
Subjective 2 Subjective: Improving edema with elevation of lower extremities. Still weeping and significant erythema bilateral lower extremities. Vitals/I&O/Wt Last Vital Signs Temp 98.6 F 05/19/25 20:00 Pulse 85 05/19/25 20:00 Resp 16 05/19/25 20:00 BP 106/51 05/19/25 20:00 Pulse Ox 94 05/19/25 20:00 O2 Del Method Room Air 05/19/25 20:00 05/19/25 05/19/25 05/19/25 06:59 14:59 22:59 Intake Total 100 / 1510 900 / 900 660 / 1560 Output Total 775 / 975 650 / 650 475 / 1125 Balance -675 / 535 250 / 250 185 / 435 Weight last 48 hrs Weight 64.864 kg Weight 63.185 kg Weight 61.689 kg Physical Exam 2 Const: COMMON NORMALS: patient oriented x3 and alert GENERAL APPEARANCE: c ooperative ORIENTATION/CONSCIOUSNESS: Yes awake HENMT: COMMON NORMALS: oropharynx normal Neck/C-Spine: COMMON NORMALS: no JVD Resp: COMMON NORMALS: normal respiratory effort and clear to auscultation bilaterally AUSCULTATION: clear to auscultation bilaterally Cardio: COMMON NORMALS: no JVD, regular rhythm, S1 normal heart sound present, S2 normal heart sound present and No murmurs present (Cardio) RHYTHM: regular rhythm HEART SOUNDS: S1 normal heart sound present and S2 normal heart sound present GI: COMMON NORMALS: Normal to inspection, nondistended, normoactive bowel sounds present, Soft to palpation and non-tender PALPATION: Yes Soft to palpation Extremity: COMMON NORMALS: no joint enlargement GENERAL: Yes edema (2+, with breakdown, weeping) Neuro: COMMON NORMALS: patient oriented x3 and moves all extremities S ENSORIUM/ORIENTATION: Yes alert Skin: GENERAL SKIN EXAM: erythema (Bilateral lower extremities below the knee with significant erythema, warmt) OTHER: Weeping Urinary Catheter Management: Metz: Cath Placed During This Visit: yes Reason for Continuing Indwelling Catheter: Acute Urinary Retention or Obstruction Urinary Catheter Date of Insertion: 05/19/25 Urinary Catheter Time of Insertion: 01:58 Data 05/19/25 04:28 05/19/25 04:28 Micro: Microbiology 05/18/25 17:13 Blood Culture - Preliminary Blood NEGATIVE TO DATE 05/18/25 15:58 Blood Culture - Preliminary Blood NEGATIVE TO DATE A&P Assessment and plan 1. Cellulitis: Continue elevation. With noted some wrinkling, diminishing edema. Still significant erythema, warmth, extensive cellulitis. Continue to antibiotic coverage. Reassess. Several days of bilateral leg redness, warmth, and weeping drainage without systemic symptoms; exam shows erythema, warmth, and weeping. Concern discussed for early infection versus changes related to venous stasis. Reviewed vitals, CBC, CMP, blood culture - Empiric antibiotic for now. Ceftriaxone, linezolid. Monitor for cytopenia. Noted some decrease in hemoglobin of 8.9, although did receive fluids yesterday. Reassess blood counts. Reviewed MRSA PCR. Detected. - Elevate legs - Wound care Follow-up after discharge for consideration compression-type dressings/bandages Discussed with nursing, case maker. 2. Leg edema: Elevate lower extremities. Cautious diuretic. Monitor for risk of hypovolemia, dehydration. Ports on chronic anticoagulation with Eliquis. 3. Chronic venous stasis: Chronic venous insufficiency : Legs kept dependent in wheelchair with difficulty elevating; clinician explained venous return impairment likely contributing to weeping and erythema. - Strict leg elevation emphasized - Wound care involvement - Compression dressing system to assist venous return 4. Hyponatremia: Reviewed chemistry, improvement in sodium up to 129. Sodium chloride 1 g twice daily. Regular diet-fluid restriction. Lasix. Monitor for risk of WILLIE. Hypotension. Repeat chemistry. 5. Hyperkalemia: Reviewed potassium, hyperkalemia resolved. Low potassium diet. - diuretic, carefully, because of blood pressure - Recheck chemistry 6. WILLIE (acute kidney injury): With mild improvement, creatinine at 1.5. Elevate lower extremities, hold off additional diuresis. Reassess. Hold lisinopril. Caution with diuretic. Reassess renal function. Monitor intake and output. He denies NSAID use. Monitor blood pressure for any hypotension. Albumin is noted low, will give a dose of albumin. Obtain kidney and bladder ultrasound. Obtain urine studies. Plan: Atrial fibrillation : Known atrial fibrillation; ED ECG shows atrial fibrillation. Patient reports taking Eliquis. Amiodarone. Hypertension : History of hypertension; ED BP 123/70. Hypothyroidism : Resume levothyroxine Memory issues Possible chronic kidney disease (CKD) Aortic and mitral valvular regurgitation Osteoarthritis : History noted; no acute management discussed. Code status: DNR preference : Code status discussed; patient states preference to not receive CPR and to focus on comfort if heart or breathing stop. - Update code status to DNR; prioritize comfort-focused measures in the event of cardiopulmonary arrest PDMP PDMP Reviewed: Not Reviewed Attestations 2 Medical Necessity Statement*: Continue hospitalization for assessment and management of extensive cellulitis LE, hyponatremia, WILLIE. and High MDM includes amount and/or complexity of data reviewed/ordered [ resulted lab(s)/test(s), ordered lab(s)/test(s) and other healthcare professional discussion] as documented Diagnoses Cellulitis L03.90 Leg edema R60.0 Chronic venous stasis I87.8 Hyponatremia E87.1 Hyperkalemia E87.5 WILLIE (acute kidney injury) N17.9
[2025-05-20 04:00] VITALS: BP 100/45; PULSE 67; RESP 16; TEMP 36.7; O2SAT 96
[2025-05-20 04:27] LABS: Hematocrit 25.5 % (37-53); Hemoglobin 8.60 g/dL (11.27-16.99); Mean Corpuscular HGB Conc 33.7 g/dL (30-55); Mean Corpuscular Hemoglobin 33.5 pg (27-33); Mean Corpuscular Volume 99.2 fl (82-101); Nucleated Red Blood Cells % 0 %; Platelet Count 236 10^3/cmm (157-399); Red Blood Count 2.57 10^6/uL (3.85-5.65); White Blood Count 5.94 10^3/uL (3.29-11.43)
[2025-05-20 04:54] LABS: Alanine Aminotransferase 19 U/L (0-41); Albumin Level 2.7 g/dL (3.5-5.2); Alkaline Phosphatase 29 U/L (40-130); Anion Gap 12.7 (5-19); Aspartate Amino Transferase 37 U/L (0-40); Blood Urea Nitrogen 58 mg/dL (8-23); Calcium 8.6 mg/dL (8.5-10.5); Carbon Dioxide 25 mmol/L (22-29); Chloride 94 mmol/L (98-107); Globulin 3.1 g/dL (1.3-4.6); Glucose 91 mg/dL (65-115); Osmolality Calculated 280 mOsm/kg (285-295); Potassium 4.7 mmol/L (3.5-5.1); Sodium 127 mmol/L (136-145); Total Protein 5.8 g/dL (6.6-8.7)
[2025-05-20] MEDS: albumin 25 G/100 ML BAG 60 G IV ×2 (07:51→12:09)
[2025-05-20 07:59] VITALS: BP 101/36; PULSE 71; RESP 17; TEMP 36.6; O2SAT 96
[2025-05-20 08:00] VITALS: BP 96/39
--- NOTE | 2025-05-20 08:48 | P.DS_ITS ---
Discharge Providers Date of Admission: 05/18/25 17:38 Date of Discharge: May 20, 2025 Attending Provider at Admission: Reji Espinosa Attending Provider at Discharge: Reji Espinosa Primary Care Provider: Lucas Barrera MD Diagnoses at Discharge Discharge Diagnosis 1. Cellulitis: 2. Leg edema: 3. Chronic venous stasis: 4. Hyponatremia: 5. Hyperkalemia: 6. WILLIE (acute kidney injury): Reason for Visit Reason for Visit: SWOLLEN LEGS Brief History: Noe Mcclain is a 84 year old male with history of atrial fibrillation (on amiodarone), hypertension, hypothyroidism, hyponatremia, prior acute kidney injury (WILLIE) with possible chronic kidney disease (CKD), aortic and mitral valv ular regurgitation, osteoarthritis, and memory issues presents with several days of bilateral leg redness, warmth, and inflamed, weeping skin. Denies fever, shortness of breath, cough, nausea, vomiting, or diarrhea. Uses a wheelchair at home and typically keeps legs dependent; reports difficulty elevating legs. Home health nurse is working to obtain a lift chair to assist with leg elevation. Reports taking a ?water pill.? Reports taking Eliquis. Denies medication allergies. Denies tobacco, alcohol, and illicit drug use. Does not use CPAP or home oxygen. Hospital Course Hospital Course Renal function he was initially started empiric treatment with ceftriaxone linezolid MRSA nasal swab tested positive. Lower extremities were elevated. Checked. She received some volume expansion with albumin. Diuretic has been held. Renal function with mild Promin, creatinine 1.6. He is making urine. BUN 58. Discussed with him to discontinue Lasix at this time, follow-up with prime provider for reassessment. Lower extremity edema is due to severe venous insufficiency rather than volume overload. Instructed to elevate legs whenever he is stationary. Please reassess. Will also refer to wound care clinic for consideration of compression therapy. Physical Exam Const: COMMON NORMALS: patient oriented x3 and alert GENERAL APPEARANCE: cooperative ORIENTATION/CONSCIOUSNESS: Yes awake HENMT: COMMON NORMALS: oropharynx normal Neck/C-Spine: COMMON NORMALS: no JVD Resp: COMMON NORMALS: normal respiratory effort and clear to auscultation bilaterally AUSCULTATION: clear to auscultation bilaterally Cardio: COMMON NORMALS: no JVD, regular rhythm, S1 normal heart sound present, S2 normal heart sound present and No murmurs present (Cardio) RHYTHM: regular rhythm HEART SOUNDS: S1 normal heart sound present and S2 normal heart sound present GI: COMMON NORMALS: Normal to inspection, nondistended, normoactive bowel sounds present, Soft to palpation and non-tender PALPATION: Yes Soft to palpation Extremity: COMMON NORMALS: no joint enlargement and no pedal edema GENERAL: Yes edema (1+) OTHER: Erythema with significant improvement. Neuro: COMMON NORMALS: patient oriented x3 and moves all extremities SENSORIUM/ORIENTATION: Yes alert Skin: COMMON NORMALS: no rashes or lesions noted GENERAL SKIN EXAM: no rashes or lesions noted OTHER: Sleeping improving. Urinary Catheter Management: Metz: Cath Placed During This Visit: yes Reason for Continuing Indwelling Catheter: Other Urinary Catheter Date of Insertion: 05/19/25 Urinary Catheter Time of Insertion: 01:58 Discharge Data Studies Completed and Pending Completed Studies During Hospitalization Category Date Time Status XR chest 1V portable [id number] Stat Exams 05/18/25 15:31 Completed US renal BI w/PV bladder [id number] Routine Ultrasound 05/19/25 20:05 Completed US venous duplex lower extremity bilat [CV venous Ultrasound 05/18/25 16:48 [place] [id number]] Stat Pending at discharge Category Date Time Status Blood Culture Stat Lab 05/18/25 17:13 Results Complete Blood Count w/Auto AM LABS Lab 05/21/25 04:00 Ordered Comprehensive Metabolic Panel AM LABS Lab 05/21/25 04:00 Ordered Radiology Impressions Chest X-Ray 05/18/25 15:31 IMPRESSION: 1. Cardiomegaly. 2. Lung hyperinflation. Renal Ultrasound 05/19/25 20:05 Impression: 1. Negative renal ultrasound. 2. Bladder volume of 181 mL Laboratory Results WBC 5.94 10^3/uL (3.29-11.43) 05/20/25 03:38 RBC 2.57 10^6/uL (3.85-5.65) L 05/20/25 03:38 Hgb 8.60 g/dL (11.27-16.99) L 05/20/25 03:38 Hct 25.5 % (37-53) L 05/20/25 03:38 MCV 99.2 fl (82-101) 05/20/25 03:38 MCH 33.5 pg (27-33) H 05/20/25 03:38 MCHC 33.7 g/dL (30-55) 05/20/25 03:38 RDW 14.8 % (12.1-15.1) 05/20/25 03:38 Plt Count 236 10^3/cmm (157-399) 05/20/25 03:38 MPV 9.6 fL (7.4-10.4) 05/20/25 03:38 Neut % (Auto) 72.1 % 05/20/25 03:38 Lymph % (Auto) 10.1 % 05/20/25 03:38 Atlantic % (Auto) 15.8 % 05/20/25 03:38 Eos % (Auto) 1.2 % 05/20/25 03:38 Baso % (Auto) 0.5 % 05/20/25 03:38 Neut # (Auto) 4.28 10^3/uL (1.8-7.7) 05/20/25 03:38 Lymph # (Auto) 0.6 10^3/uL (0.8-4.8) L 05/20/25 03:38 Atlantic # (Auto) 0.9 10^3/uL (0.2-0.9) 05/20/25 03:38 Eos # (Auto) 0.1 10^3/uL (0.0-0.8) 05/20/25 03:38 Baso # (Auto) 0.0 10^3/uL (0.0-0.1) 05/20/25 03:38 Nucleated RBC % (auto) 0 % 05/20/25 03:38 Nucleated RBCs # 0.0 /100WBC 05/20/25 03:38 Sodium 127 mmol/L (136-145) L 05/20/25 03:38 Potassium 4.7 mmol/L (3.5-5.1) 05/20/25 03:38 Chloride 94 mmol/L (98-107) L 05/20/25 03:38 Carbon Dioxide 25 mmol/L (22-29) 05/20/25 03:38 Anion Gap 12.7 (5-19) 05/20/25 03:38 BUN 58 mg/dL (8-23) H 05/20/25 03:38 Creatinine 1.6 mg/dL (0.7-1.2) H 05/20/25 03:38 GFR Calculation Not Reportable 05/20/25 03:38 Glucose 91 mg/dL (65-115) 05/20/25 03:38 Calculated Osmolality 280 mOsm/kg (285-295) L 05/20/25 03:38 Lactic Acid 0.8 mmol/L (0.5-2.2) 05/18/25 15:58 Calcium 8.6 mg/dL (8.5-10.5) 05/20/25 03:38 Magnesium 2.6 mg/dL (1.7-2.3) H 05/18/25 15:58 Total Bilirubin 0.5 mg/dL (0.15-1.2) 05/20/25 03:38 AST 37 U/L (0-40) 05/20/25 03:38 ALT 19 U/L (0-41) 05/20/25 03:38 Alkaline Phosphatase 29 U/L (40-130) L 05/20/25 03:38 Total Protein 5.8 g/dL (6.6-8.7) L 05/20/25 03:38 Albumin 2.7 g/dL (3.5-5.2) L 05/20/25 03:38 Globulin 3.1 g/dL (1.3-4.6) 05/20/25 03:38 Ur Random Urea Nitrogn 241 mg/dL 05/18/25 21:00 Urine Creatinine 11 mg/dL (39-259) L 05/18/25 21:00 Nasal MRSA (PCR) Mrsa detected (Negative) A 05/18/25 21:00 Vitals Last Vital Signs Temp 97.9 F 05/20/25 07:59 Pulse 71 05/20/25 07:59 Resp 17 05/20/25 07:59 BP 96/39 05/20/25 08:00 Pulse Ox 96 05/20/25 07:59 O2 Del Method Room Air 05/20/25 07:59 Discharge Plan Discharge Patient Disposition: Home Condition: Stable Prescriptions: New cefdinir 300 mg capsule 300 mg PO BID 4 Days Qty: 8 0RF doxycycline hyclate 100 mg tablet 100 mg PO BID 4 Days Qty: 8 0RF Continued magnesium oxide [MagOx] 400 mg (241.3 mg magnesium) tablet 400 mg PO DAILY amiodarone 200 mg tablet 200 mg PO DAILY cholecalciferol (vitamin D3) [Vitamin D3] 125 mcg (5,000 unit) Tablet 375 mcg PO DAILY levothyroxine 100 mcg tablet 100 mcg PO QAM Eliquis 5 mg tablet 5 mg PO BID Discontinued lisinopril 10 mg tablet 10 mg PO DAILY furosemide 40 mg tablet 40 mg PO DAILY Discharge Order = DC NOW: Discharge Order (Routine); Ordered 05/20/25 Ordered By: Reji Espinosa Referrals: Lucas Barrera MD [Primary Care Provider, [facility]] - 4-7 days Patient Instructions: Stasis Dermatitis (GEN), Venous Insufficiency (GEN), Opioid Safety, Patient Portal & Archana Instructions Activity Restrictions/Additional Instructions: Please elevate your legs anytime you are sitting down. This will help reduce swelling in your legs as well as weeping and risk of skin infection. Hold your diuretics until the next appointment with your primary provider and discuss whether you need to resume any diuretic. Your leg swelling is pre dominantly due to venous insufficiency rather than fluid overload. Please be cautious regarding dehydration even if your legs are swollen. Please have your primary provider recheck your kidney function. Please discontinue lisinopril. Monitor blood pressures 3 times daily at home, write down values to bring to your appointment. Avoid low blood pressures. Discharge Attestations Time Spent in Discharge Care*: greater than 30 min Quality Metrics Clinical Quality Measures [ No reported AMI, CVA or VTE this stay] Coding Level of Care Code 88611 Total time (in minutes) for Discharge: 50 Diagnoses Cellulitis L03.90 Leg edema R60.0 Chronic venous stasis I87.8 Hyponatremia E87.1 Hyperkalemia E87.5 WILLIE (acute kidney injury) N17.9
[2025-05-20] MEDS: linezolid premix 600 MG/300 ML PREMIX 300 MG IV (10:45)
[2025-05-20 11:27] VITALS: BP 101/47; PULSE 70; RESP 17; TEMP 36.6; O2SAT 97
--- NOTE | 2025-05-20 14:17 | PC.NURSE ---
Alli Benavides contacted for transportation.
--- NOTE | 2025-05-20 15:07 | PC.NURSE ---
Discharge paperwork discussed with patient. All belongings gathered. IV line removed. Meds-to-bed were delivered. Patient stated son took medications home with him.
[2025-05-20 16:00] VITALS: BP 112/53; PULSE 69; RESP 16; TEMP 36.8; O2SAT 97
--- NOTE | 2025-05-20 17:43 | PC.NURSE ---
Patient transferred to EMS stretcher. All belongings were sent with patient. This nurse called the patient's son, Roberto, and she stated the patient's should be there to meet him. patient left the facility at [id number].
[2025-05-20 17:45] VITALS: BP 112/53; PULSE 69; RESP 16; TEMP 36.8; O2SAT 97
== END 2025-05-20 17:44 | disposition home or self-care (01) ==
LOC: ER 17:09 → MEDSURG 18:00
PROVIDERS: Admitting Provider Internal Medicine; Emergency Provider Family Medicine; PCP Family Medicine; Visit Provider Internal Medicine
DX: L03.90 Cellulitis, unspecified (principal); R60.0 Localized edema; I87.8 Other specified disorders of veins; E87.1 Hypo-osmolality and hyponatremia; E87.5 Hyperkalemia; N17.9 Acute kidney failure, unspecified; Z79.01 Long term (current) use of anticoagulants; I48.91 Unspecified atrial fibrillation; I10 Essential (primary) hypertension; E03.9 Hypothyroidism, unspecified; I34.0 Nonrheumatic mitral (valve) insufficiency; Z66 Do not resuscitate
CPT/HCPCS: 36415; 51702; 71045; 76770; 76857; 80053; 82570; 83605; 83735; 84540; 85025; 87040; 93005; 93970; 96365; 96375; 99285; G0378; J0696; J1938; J2020; J3373; J3490; J7030; J7040; J7050; J9999; P9046

== ENCOUNTER 2025-05-28 14:08 | Emergency (ER) | payer MEDICARE, SELFPAY ==
[2025-05-28] VITALS (7 sets, daily range): BP systolic 103–121; BP diastolic 50–67; PULSE 63–81; RESP 16–18; TEMP 36.4; O2SAT 91–96; BMI 17.9
--- OUTSIDE RECORDS SUMMARY | 2025-05-28 14:19 | XMS_ITS | Continuity of Care Document ---
Author Organization [facility] - Tate Angulo [facility] Jermain, Mariusz, [facility] ([facility]) Address [address] [place] [address] Care Team Providers Care Mother'S Helper Name Role Phone HUMA BARRERA Primary Care [...] recorded. Referral home health referral 2024 025 [email or web address] 2 [facility], [address] [place] [address], [address], 10:56:18 Procedures None recorded. Surgeries None recorded. Imaging None recorded. Medication Orders None recorded. Patient TargetsNo targets recorded. Patient Instructions Encounter Date Encounter Id Patient Instructions Last Modified By Organization Details Last Modified Time 05/16/2025 [id number] (ANTHONY) ankle brachial index* Not available 05/28/2025 14:02:47 - A home health agency will be [...] Recorded Time Chronic kidney disease stage 3 210249171 Active 2022 Harvey Jimenez DO [address] [place] [address], [phone] , [facility] Mariusz Aly 3 12:48:01 Hypothyroi dism 39594702 Active 2022 Harvey Jimenez DO [address] [place] [address], [phone] , [facility] Mariusz Aly 3 12:48:02 Pain of left knee joint 4858936405197 07 Active 2022 Harvey Jimenez, DO [address] [place] [address], [phone] , [facility] 3 12:48:05 Pain of left hip joint 3615093543604 00 Active 2022 Harvey JimenezDO [address] [place] [address], [phone] , [facility] 3 12:48:06 Congestive heart failure 49945143 Active [address] [facility] 4 08:40:51 Atrial fibrillati on 69960236 Active [address] [facility] 4 08:41:01 Physical deconditio arcadio 1068486995676 2 Active 2024 Huma Barrera MD [address] [place] [address], [address] , [facility] 5 11:32:10 Mild protein-ca humza malnutriti on (weight for age 75-89 percent of standard) 632511161 Active 2024 Huma Barrera MD [address] [place] [address], [address] , [facility] 5 11:32:50 Essential hypertensi on 81116019 Active 2024 Huma Barrera MD [address] [place] [address], [address] , [facility] 5 22:39:52 Chronic acquired lymphedema 02780579 Active 2024 Huma Barrera MD [address] [place] [address], [address] , [facility] 15:50:02 Peripheral vascular disease 664741189 Active 2024 Huma Barrera MD [address] [place] [address], [phone] , [facility] 15:52:07 Problem Notes None recorded. Medical [...] when gain more than 3-4 pounds cs/smf; 63771; Recorded 08/22/19 8:45AM by Shannan Nugent (Authori [...] Levothyro xine Sodium daily 03/04 completed CS/smf; 88838; Recorded 04/28/20 11:52AM by Kellen Scott RN [...] Last Updated DateTime 182.88 cm 18.4 kg/m2 52955.5 6 g 96.9 [degF] 54 /min 98/60 mm[Hg] Delia Uriarte [facility] 15:22:36 Social History Question Answer Notes LastModified by [employer] Details LastModified Time Tobacco Smoking Status Never Smoker Balbina otto [facility] 12/21/2024 10:14:43 What Is Your Level Of Caffeine Consumption? None [email or web address] Information not available 05/16/2025 Do You Or Have You Ever Used Marijuana? Never Used [email or web address] Information not available 05/16/2025 What Was The Date Of Your Most Recent Tobacco Screening? 12/21/2024 Information not available 12/21/2024 Sex: Unknown Functional Status Question Answer Note LastModified by [employer] Details LastModified Time Do you use any illicit or recreational drugs? No Information not available 12/21/2024 What is your level of alcohol consumption? None [email or web address] Information not available 05/16/2025 Mental Status None recorded. Family History Nothing Reported. Medical History No medical history recorded. Immunizations Vaccine Type Date Status Note Provider Nam e and Address Organization Details Recorded Time Influenza, split virus, trivalent, preservative 5 completed Not Available [facility] 12/27/2022 02:51:35 Influenza, split virus, trivalent, preservative 7 completed Jesswero Florian [facility] 01/16/2024 11:12:20 Influenza, split virus, trivalent, preservative [facility] 01/16/2024 11:12:20 Pneumococcal conjugate PCV 13 7 [facility] 01/16/2024 11:12:20 Influenza, split virus, trivalent, preservative 1 [facility] 01/16/2024 11:12:20 pneumococcal polysaccharide PPV23 8 [facility] 01/16/2024 11:12:20 Influenza, high-dose, quadrivalent, PF 1 [facility] 01/16/2024 11:12:19 Influenza, adjuvanted, quadrivalent, PF 2 [facility] 01/16/2024 11:12:19 COVID-19, mRNA, LNP-S, PF, 100 mcg/0.5mL dose or 50 mcg/0.25mL dose 1 [facility] 01/16/2024 11:12:19 COVID-19, mRNA, LNP-S, PF, 100 mcg/0.5mL dose or 50 mcg/0.25mL dose 1 [facility] 01/16/2024 11:12:20 COVID-19, mRNA, LNP-S, PF, 100 mcg/0.5mL dose or 50 mcg/0.25mL dose [address] [facility] 01/16/2024 11:12:20 COVID-19, mRNA, LNP-S, bivalent, PF, 50 mcg/0.5 mL or 25mcg/0.25 mL dose 2 completed Jesswero Florian [facility] 01/16/2024 11:12:20 Influenza, high-dose, trivalent, PF 7 completed Jess otto, [facility] 01/16/2024 11:12:20 Influenza, high-dose, trivalent, PF 8 completed Jesswero Florian [facility] 01/16/2024 11:12:20 Past Encounters Encounter ID Performer Location Encounter Start Date Encounter Closed Date Diagnosis/Indication Diagnosis SNOMED-CT Code Diagnosis ICD10 Code Diagnosis IMO Codes Diagnosis Note [id number] Harvey Jimenez DO [facility] ([facility]) [address] [place] [phone] 05/01/2025 12:38:18 05/03/2025 12:12:27 Asthenia 78790114 R53.1 03472 Congestive heart failure 96054712 I50.9 Atrial fibrillation 4943 6004 I48.91 Essential hypertension 18120000 I10 Hypothyroidism 56046212 E03.9 Mild prote in-calorie malnutrition (weight for age 75-89 percent of standard) 689128190 E44.1 Chronic ki dney disease stage 3 025232123 N18.30 Physical deconditioning 2057324361 9102 R68.89 [id number] Huma Barrera MD [facility] ([facility]) [address] [place] [address] 05/16/2025 15:12:51 05/16/2025 16:10:33 Chronic acquired lymphedema 76260321 I89.0 4586 The patient's condition is complex and likely requires specialize d care. Options discussed include home health, a wound care clinic, or a short-term [place] [facility] stay. Given the difficulty with transporta tion, [...] an alternativ e option. 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 Huma Barrera MD [address] [place] [address], [phone], [facility] 05/18/2025 10:43:47
--- OUTSIDE RECORDS SUMMARY | 2025-05-28 14:19 | XMS_ITS | Continuity of Care Document ---
Author Organization [facility] Mariusz Aly, [facility] ([facility]) Address [address] [place] [address] Care Team Providers Care Freelance Art Director Name Role Phone LUCAS BARRERA Primary Care [...] By Organization Details Last Modified Time 05/01/2025 [id number] Overall weakness and inability to care for self at home, unable to care for him. 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 Plan to work with therapy to gain strength. Blood pressure too low, will d/c lisinopril as well as magnesium and vitamin D. Labs in the Morning. [email or web address] Not available 05/01/2025 12:53:38 Reason for Referral None Reported. Problems Name Problem SNOMED Code Status Onset Date Resolution Date Notes Provider Name and Address Organization Details Recorded Time Chronic kidney disease stage 3 801356941 Active 2022 Harvey Jimenez DO [address] [place] [address], [phone] , [facility] Mariusz Aly 12:48:01 Hypothyroi dism 79667804 Active 2022 Harvey Jimenez DO [address] [place] [address], [phone] , [facility] Mariusz Aly 3 12:48:02 Pain of left knee joint 1373716301834 07 Active 2022 Harvey JimenezDO [address] [place] [address], [address] , [facility] 3 12:48:05 Pain of left hip joint 7462419903992 00 Active 2022 Harvey JimenezDO [address] [place] [address], [address] , [facility] 3 12:48:06 Congestive heart failure 30847849 Active 2023 CHETAN otto [facility] 4 08:40:51 Atrial fibrillati on 79941215 Active 2023 CHETAN otto [facility] 4 08:41:01 Physical deconditio arcadio 7566278710885 2 Active 2024 Lucas Barrera MD [address] [place], [place] [id number] , [facility] 5 11:32:10 Mild protein-ca humza malnutriti on (weight for age 75-89 percent of standard) 246126681 Active 2024 Lucas Barrera MD [address] [place], [place] [id number] , [facility] 5 11:32:50 Essential hypertensi on 08449111 Active 2024 Lucas Barrera MD [address] [place] [phone] , [facility] 5 22:39:52 Chronic acquired lymphedema 05114125 Active 2024 Lucas Barrera MD [address] [place], [place] [id number] , [facility] 15:50:02 Peripheral vascular disease 933060494 Active 2024 Lucas Barrera MD [address] [place], [address] , [facility] 15:52:07 Problem Notes None [...] when gain more than 3-4 pounds cs/smf; 75862; Recorded 08/22/19 8:45AM by Shannan Nugent (Authori [...] Levothyro xine Sodium daily 03/04 completed CS/smf; 40566; Recorded 04/28/20 22 11:52AM by Kellen Scott [...] Last Updated DateTime 182.88 cm 18.7 kg/m2 26459.7 5 g 66 /min 18 /min 98.38 [degF] 98 % 126/64 mm[Hg] CHETAN SCOTT [facility] 12:47:02 Social History Question Answer Notes LastModified by Organizat ion Details LastModified Time Tobacco Smoking Status [facility] 12/21/2024 10:14:43 What Is Your Level Of Caffeine Consumption? None [email or web address] Information not available 05/16/2025 Do You Or Have You Ever Used Marijuana? Never Used [email or web address] Information not available 05/16/2025 What Was The [...] virus, trivalent, preservative 7 completed Jesswero Florian [facility] 01/16/2024 11:12:20 Influenza, split virus, trivalent, preservative [facility] 01/16/2024 11:12:20 Pneumococcal conjugate PCV 13 7 completed [place] Anival [facility] 01/16/2024 11:12:20 Influenza, split virus, trivalent, preservative 1 completed Jesswero Florian [facility] 01/16/2024 11:12:20 pneumococcal polysaccharide PPV23 8 [facility] 01/16/2024 11:12:20 Influenza, high-dose, quadrivalent, PF 1 completed Jess Anival [facility] 01/16/2024 11:12:19 Influenza, adjuvanted, quadrivalent, PF 2 [facility] 01/16/2024 11:12:19 COVID-19, mRNA, LNP-S, PF, 100 mcg/0.5mL dose or 50 mcg/0.25mL dose 1 [facility] 01/16/2024 11:12:19 COVID-19, mRNA, LNP-S, PF, 100 mcg/0.5mL dose or 50 mcg/0.25mL dose 1 completed Jesswero Florian [facility] 01/16/2024 11:12:20 COVID-19, mRNA, LNP-S, PF, 100 mcg/0.5mL dose or 50 mcg/0.25mL dose 1 completed Jess otto [facility] 01/16/2024 11:12:20 COVID-19, mRNA, LNP-S, bivalent, PF, 50 mcg/0.5 mL or 25mcg/0.25 mL dose 2 completed Jess otto [facility] 01/16/2024 11:12:20 Influenza, high-dose, trivalent, PF 7 completed Jess otto [facility] 01/16/2024 11:12:20 Influenza, high-dose, trivalent, PF 8 completed Jess otto [facility] 01/16/2024 11:12:20 Past Encounters Encounter ID Performer Location Encounter Start Date Encounter Closed Date Diagnosis/Indication Diagnosis SNOMED-CT Code Diagnosis ICD10 Code Diagnosis IMO Codes Diagnosis Note [id number] Harvey NielsonftDO [facility] ([facility]) [address] [place] [phone] 05/01/2025 12:38:18 05/03/2025 12:12:27 Asthenia 50831785 R53.1 02360 Congestive heart failure 89410960 I50.9 Atrial fibrillation 4943 6004 I48.91 Essential hypertension 04099262 I10 Hypothyroidism 29446775 E03.9 Mild prote in-calorie malnutrition (weight for age 75-89 percent of standard) 595598356 E44.1 Chronic ki dney disease stage 3 708056812 N18.30 Physical deconditioning 8977901852 9102 R68.89 Health Concerns Section Related Observation LastModified by Organization Detai ls LastModified Time None Recorded Concern Status LastModified by Organization Details LastModified Time None Recorded Payers Encounter Date Sequence Insurance Name Policy Number Policy Cross Covered Member ID Cross Member ID Guarantor Name 05/01/2025 1 [employer] (MEDICARE REPLACEMENT/A DVANTAGE - PPO) Noe Mcclain [id number] Noe Mcclain Notes Date Note Type Note Provider Name and Address Organization Details Recorded Time 5 text/html HypothyroidReported by PatientHPIFor onset/timing, patient reportsdx date: ____. For duration, patient reports>12 months. For associated symptoms, patient reportsno weakness,no lightheadedness,no fatigue, andno cold intolerance.ROS as noted in the HPI new admit to snf, unable to stay at home longer, unable to care for him Harvey Jimenez, [address], [address], [facility] 05/01/2025 16:19:53
--- OUTSIDE RECORDS SUMMARY | 2025-05-28 14:19 | XMS_ITS | Data Portability ---
Author Organization [facility] Mariusz [facility] Address [address] [place] [address] Care Team Providers Care Senior Pharmacy Technician Name Role Phone HUMA BARRERA Primary Care Provider [phone] Assessment Encounter Date Assessment Date Assessment LastModified [...] home health referral 2024 [email or web address], [address], 10:56:18 Procedures None recorded. Surgeries None recorded. Imaging None recorded. Medication Orders lisinopril 10 mg tablet 2024 025 [facility], [address], [place], [address], 10:31:25 amiodarone 200 mg tablet 2024 025 [facility], [address], [place], [address], 10:31:30 levothyroxi ne 88 mcg tablet 2024 025 [facility], [address], [place], [address], 10:31:15 furosemide 40 mg tablet 2024 025 [facility], [address], [place], [address], 10:31:27 Patient TargetsNo targets recorded. Patient Instructions Encounter Date Encounter Id Patient Instructions Last Modified By Organization Details Last Modified Time 12/05/2024 [id number] Admitted with hyponatremia and s/p fall. Treated with IV fluids and oral sodium tabs. Cr 1.3 on discharge. Admitted to SNF for therapy. Labs Thursday. [email or web address] Not available 12/05/2024 17:02:53 12/14/2024 [id number] Doing well with therapy. Weight up a few lbs, states he is eating more. Mood good overall. [email or web address] Not available 12/14/2024 16:32:14 05/01/2025 [id number] Overall weakness and inability to care for self at home, unable to care for him. Likely will be senior living at snf. Plan to work with therapy to gain strength. Blood pressure too low, will d/c lisinopril as well as magnesium and vitamin D. Labs in the Morning. Not available 05/01/2025 12:53:38 05/16/2025 [id number] (ANTHONY) ankle brachial index* [email or web address] Not available 05/28/2025 14:02:47 - A home [...] Recorded Time Chronic kidney disease stage 3 118613572 Active 2022 Harvey Jimenez DO [address] [place] [address], [phone] , [facility] 3 12:48:01 Hypothyroi dism 86419188 Active 2022 Harvey Jimenez DO [address] [place] [address], [phone] , [facility] 3 12:48:02 Pain of left knee joint 8586640455821 07 Active 2022 Harvey Jimenez DO [address] [place] [address], [phone] , [facility] 3 12:48:05 Pain of left hip joint 0266452500815 00 Active 2022 Harvey JimenezDO [address] [place] [address], [address] , [facility] 3 12:48:06 Congestive heart failure 21122459 Active 2023 CHETAN otto, [facility] 4 08:40:51 Atrial fibrillati on 21913187 Active 2023 CHETAN otto, [facility] 4 08:41:01 Physical deconditio arcadio 9874677907006 2 Active 2024 Huma Barrera MD [address] [place] [address], [address] , [facility] 5 11:32:10 Mild protein-ca humza malnutriti on (weight for age 75-89 percent of standard) 606378376 Active 2024 Huma Barrera MD [address] [place] [address], [address] , [facility] 5 11:32:50 Essential hypertensi on 31089769 Active 2024 Huma Barrera MD [address] [place] [address], [address] , [facility] 5 22:39:52 Chronic acquired lymphedema 18869037 Active 2024 Huma Barrera MD [address] [place] [address], [address] , [facility] 5 15:50:02 Peripheral vascular disease 572650291 Active 2024 Huma Barrera MD [address] [place], [address] , [facility], [place] 15:52:07 Problem Notes None recorded. Medical [...] when gain more than 3-4 pounds cs/smf; 03437; Recorded 08/22/19 8:45AM by Shannan Nugent (Authori [...] Levothyro xine Sodium daily 03/04 completed CS/smf; 36952; Recorded 04/28/20 11:52AM by Kellen Scott RN [...] Address Organization Details Last Updated DateTime 5 53873.7 9 g 55 /min 17 /min 97.4 [degF] 99 % 130/96 mm[Hg] [facility] 5 16:57:16 Date Recorded Body weight Heart rate Respiratory rate Body temperature Oxygen saturation Systolic And Diastolic Provider Name and Address Organization Details Last Updated DateTime 5 21481.8 9 g 64 /min 16 /min 98.3 [degF] 98 % 116/68 mm[Hg] [facility] 5 16:29:54 Date Recorded Body weight Body mass index (BMI) Body height Oxygen saturation Heart rate Systolic And Diastolic Provider Name and Address Organization Details Last Updated DateTime 5 62576.5 6 g 18.4 kg/m2 182.88 cm 96 % 72 /min 112/60 mm[Hg] Balbina [facility] 5 10:17:20 Date Recorded Body height Body mass index (BMI) Body weight Heart rate Respiratory rate Body temperature Oxygen saturation Systolic And Diastolic Provider Name and Address Organization Details Last Updated DateTime 5 182.88 cm 18.7 kg/m2 63732.7 5 g 66 /min 18 /min 98.38 [degF] 98 % 126/64 mm[Hg] [facility] 5 12:47:02 Date Recorded Body height Body mass index (BMI) Body weight Body temperature Heart rate Systolic And Diastolic Provider Name and Address Organization Details Last Updated DateTime 5 182.88 cm 18.4 kg/m2 44314.5 6 g 96.9 [degF] 54 /min 98/60 mm[Hg] Delia Uriarte [facility] 5 15:22:36 Social History Question Answer Notes LastModified by Organizat ion Details LastModified Time Tobacco Smoking Status Never Smoker Balbina Linn fam [facility] 12/21/2024 10:14:43 What Is Your Level Of Caffeine Consumption? None [email or web address] Information not available 05/16/2025 Do You Or Have You Ever Used Marijuana? Never Used [email or web address] Information not available 05/16/2025 What Was The Date Of Your Most Recent Tobacco Screening? 12/21/2024 Information not available 12/21/2024 Sex: Unknown Functional Status Question Answer Note LastModified by Organizat ion Details LastModified Time Do you use any illicit or recreational drugs? No Information not available 12/21/2024 What is your level of alcohol consumption? None [email or web address] Information not available 05/16/2025 Mental Status None recorded. Family History Nothing Reported. Medical History No medical history recorded. Immunizations Vaccine Type Date Status Note Provider Nam e and Address Organization Details Recorded Time Influenza, split virus, trivalent, preservative 5 completed Not Available [facility] 12/27/2022 02:51:35 Influenza, split virus, trivalent, preservative 7 completed Jess otto [facility] 01/16/2024 11:12:20 Influenza, split virus, trivalent, preservative 8 completed Jess otto [facility] 01/16/2024 11:12:20 Pneumococcal conjugate PCV 13 7 completed Jess otto [facility] 01/16/2024 11:12:20 Influenza, split virus, trivalent, preservative 1 completed Jess Pliler [facility] 01/16/2024 11:12:20 pneumococcal polysaccharide P[facility]23 [facility] 01/16/2024 11:12:20 Influenza, high-dose, quadrivalent, PF 1 completed [place] Anival [facility] 01/16/2024 11:12:19 Influenza, adjuvanted, quadrivalent, PF 2 completed Jesswero Florian [facility] 01/16/2024 11:12:19 COVID-19, mRNA, LNP-S, PF, 100 mcg/0.5mL dose or 50 mcg/0.25mL dose 1 completed Jess Anival [facility] 01/16/2024 11:12:19 COVID-19, mRNA, LNP-S, PF, 100 mcg/0.5mL dose or 50 mcg/0.25mL dose 1 completed Jesswero Florian [facility] 01/16/2024 11:12:20 COVID-19, mRNA, LNP-S, PF, 100 mcg/0.5mL dose or 50 mcg/0.25mL dose 1 completed Jess Anival [facility] 01/16/2024 11:12:20 COVID-19, mRNA, LNP-S, bivalent, PF, 50 mcg/0.5 mL or 25mcg/0.25 mL dose 2 [facility] 01/16/2024 11:12:20 Influenza, high-dose, trivalent, PF 7 completed Jess Anival [facility] 01/16/2024 11:12:20 Influenza, high-dose, trivalent, PF 8 completed Jess Florian [facility], Mariusz 01/16/2024 11:12:20 Past Encounters Encounter ID Performer Location Encounter Start Date Encounter Closed Date Diagnosis/Indication Diagnosis SNOMED-CT Code Diagnosis ICD10 Code Diagnosis IMO Codes Diagnosis Note [id number] Harvey Jimenez DO [facility] ([facility] [address] [facility]) [address] [place] [address] 5 09/01/2022 12:29:14 09/09/2022 12:05:59 Chronic kidney disease stage 3 125294074 N18.30 Hypothyroidism 13802582 E03.9 Pain of le ft knee joint 5454290791 41949 M25.562 Pain of le ft hip joint 4157671134 05201 M25.552 [id number] Harvey Jimenez DO [facility] ([facility] [address] [facility]) [address] [place] [address] 5 09/10/2022 12:19:48 09/17/2022 11:21:40 Venous stasis edema of bilateral lower limbs 5331469438 9170947 I87.2 Generalize d osteoarthritis 775951370 M15.9 [id number] Harvey Jimenez DO [facility] ([facility] [address] [facility]) [address] [place] [address] 5 03/04/2023 11:51:42 03/04/2023 14:27:52 Pain of left hip joint 6881875355 73226 M25.552 Hypothyroidism 29567713 E03.9 Chronic ki dney disease stage 3 628133952 N18.30 Hyperglycemia 28728851 R 73.9 Systolic murmur 57211526 R01.1 [id number] Harvey Jimenez DO [facility] ([facility] [address] [facility]) [address] [place] [address] 09/03/2023 13:42:58 09/04/2023 11:00:58 Hypothyroidism 44065330 E03.9 Chronic ki dney disease stage 3 302158902 N18.30 Hyperglycemia 22261285 R 73.9 [id number] Harvey Jimenez [facility] ([facility] [address]) [address] [place] [address] 09/09/2023 11:52:38 09/09/2023 12:15:55 Chronic kidney disease stage 3 997570463 N18.30 Hypothyroidism 28082688 E03.9 Congestive heart failure 78529163 I50.9 Atrial fibrillation 4943 6004 I48.20 Pain of le ft hip joint 1046424072 20437 M25.552 Proximal m uscle weakness 553998296 M62.81 [id number] Harvey Jimenez DO [facility] ([facility] [address] [facility]) [address] [place] [id number] 05/02/2024 15:13:09 05/02/2024 15:47:23 Congestive heart failure 43237195 I50.9 Chronic ki dney disease stage 3 286547005 N18.30 Hypothyroidism 91105119 E03.9 [id number] Huma Barrera MD [facility] ([facility] [address] [facility]) [address] [place] [id number] 06/03/2024 11:09:48 06/03/2024 12:01:53 Physical deconditioning 7092878753 9102 R68.89 The patient would benefit from home health services, however they are limited. The patient may be need to look into other living arrangemen t such as assisted living. Atrial fibrillation 4943 6004 I48.91 Rate controlled on current medication s. Mild prote in-calorie malnutrition (weight for age 75-89 percent of standard) 257269643 E44.1 We will help patient get establishe d with Meals on Wheels and hopefully arrange better living arrangemen ts for the patient. [id number] Harvey Jimenez DO [facility] ([facility] [address] [facility]) [address] [place] [id number] 12/05/2024 14:12:13 12/06/2024 10:59:59 Post-discharge follow-up 651396944 Z09 916238 Hyponatremia 41999953 E8 7.1 61492 History of fall 61653500 9 Z91.81 3619045 Atrial fibrillation 4943 6004 I48.91 Chronic ki dney disease stage 3 229968801 N18.30 Congestive heart failure 34186834 I50.9 Hypothyroidism 34992044 E03.9 [id number] Harvey Jimenez DO [facility] ([facility]) [address] [place] [id number] 12/14/2024 09:26:51 12/20/2024 08:32:50 Congestive heart failure 24050881 I50.9 Atrial fibrillation 4943 6004 I48.91 Physical deconditioning 2750125648 9102 R68.89 [id number] Huma Barrera MD [facility] ([facility]) [address] [place] [id number] 12/21/2024 09:57:41 12/21/2024 11:14:21 Atrial fibrillation 31009362 I48.91 Rate controlled on current medication s. Congestive heart failure 41157359 I50.9 Continue Lasix Hypothyroidism 21527129 E03.9 Continue levothyrox ine. Essential hypertension 71308810 I10 Continue blood pressure medication s, however recommend checking blood pressure twice daily and provide a log of those readings over the next week. [id number] Harvey Jimenez DO [facility] ([facility] [address] [facility]) [address] [place] [id number] 05/01/2025 12:38:18 05/03/2025 12:12:27 Asthenia 21462356 R53.1 [id number] Congestive heart failure 46509624 I50.9 Atrial fibrillation 4943 6004 I48.91 Essential hypertension 94290557 I10 Hypothyroidism 33802323 E03.9 Mild prote in-calorie malnutrition (weight for age 75-89 percent of standard) 994130109 E44.1 Chronic ki dney disease stage 3 656177232 N18.30 Physical deconditioning 2714482638 9102 R68.89 [id number] Huma Barrera MD [facility] ([facility]) [address] [place] [id number] 05/16/2025 15:12:51 05/16/2025 16:10:33 Chronic acquired lymphedema 61631810 I89.0 4586 The patient's condition is complex and likely requires specialize d care. Options discussed include home health, a wound care clinic, or a short-term group home stay. Given the difficulty with transporta tion, [...] an alternativ e option. Peripheral vascular disease 415969737 I73.9 37928 To evaluate for underlying motor transport inspector y issues, a referral for an Ankle-Brac [...] Member ID Cross Member ID Guarantor Name 05/22/2025 1 [employer] (MEDICARE REPLACEMENT/A DVANTAGE - PPO) Noe Mcclain [id number] Noe Mcclain Notes Date Note Type Note Provider Name and Address Organization Details Recorded Time 5 text/html HypothyroidReported by PatientHPIFor onset/timing, patient reportsdx date: ____. For duration, patient reports>12 months. For associated symptoms, patient reportsno weakness,no lightheadedness,no fatigue, andno cold intolerance.ROS as noted in the HPI new admit to snf. Harvey Jimenez DO [address] [place] [address], [phone], [facility] 12/05/2024 17:06:31 5 text/html HypothyroidReported by PatientHPIFor onset/timing, patient reportsdx date: ____. For duration, patient reports>12 months. For associated symptoms, patient reportsno weakness,no lightheadedness,no fatigue, andno cold intolerance.ROS as noted in the HPI no complaints per staff. Pt reports he is working with therapy. Harvey Jimenez DO [address] [place] [address], [phone], [facility] 12/19/2024 13:45:04 5 text/html Annual WellnessReported by PatientROS as noted in the HPI Patient is here today for a f/u after hospitalization and Rehab stay11/28 Pt had a fall on admission was found to have hyponatremiaDischarged from Hospital to [facility] 7/2Pt discharged from [facility] 3 or 4 days ago pt and [...] any medications this morning Huma Barrera MD [address] [place] [address], [phone], [facility] 01/01/2025 22:40:09 5 text/html HypothyroidReported by PatientHPIFor onset/timing, patient reportsdx date: ____. For duration, patient reports>12 months. For associated symptoms, patient reportsno weakness,no lightheadedness,no fatigue, andno cold intolerance.ROS as noted in the HPI new admit to snf, unable to stay at home longer, unable to care for him Harvey Jimenez, [address] [place] [address], [phone], [facility] 05/01/2025 16:19:53 5 text/html The patient [...] to leave the house. Huma Barrera MD [address] [place] [address], [phone], [facility] 05/18/2025 10:43:47
--- NOTE | 2025-05-28 14:21 | PC.NURSE ---
PT [employer] CALLED REQUESTING TO SPEAK TO SOMEONE REGARDING DISCHARGE. THIS NURSE SPOKE WITH IVONE, [employer] EMPLOYEE. IVONE VERBALIZED CONCERNS WITH PT BEING DISCHARGED HOME. IVONE REQUESTED THAT PT BE PLACED IN A [facility] DUE TO NOT BEING ABLE TO BE TAKEN CARE OF SAFELY AT HOME. IVONE ALSO STATED THAT PT UNDERSTOOD THAT HE MOST LIKELY NEEDED A HIGHER LEVEL OF HOME CARE. THIS NURSE EDUCATED IVONE ON DISCHARGE PROCESS AND [facility] PLACEMENT FROM THE ER. IVONE VERBALIZED UNDERSTANDING AND REQUESTED TO BE NOTIFIED ABOUT DISCHARGE STATUS. IVONE [phone]
[2025-05-28 14:35] LABS: Hematocrit 31.8 % (37-53); Hemoglobin 10.50 g/dL (11.27-16.99); Mean Corpuscular HGB Conc 33.0 g/dL (30-55); Mean Corpuscular Hemoglobin 32.7 pg (27-33); Mean Corpuscular Volume 99.1 fl (82-101); Nucleated Red Blood Cells % 0 %; Platelet Count 303 10^3/cmm (157-399); Red Blood Count 3.21 10^6/uL (3.85-5.65); White Blood Count 6.61 10^3/uL (3.29-11.43)
[2025-05-28] MEDS: morphine 4 mg/mL SDV 1 mL IVP (14:46)
[2025-05-28] MEDS: ondansetron 2 mg/ML SDV 2 mL 4 MG IVP (14:46)
[2025-05-28 14:49] LABS: Alanine Aminotransferase 44 U/L (0-41); Albumin Level 3.6 g/dL (3.5-5.2); Alkaline Phosphatase 51 U/L (40-130); Aspartate Amino Transferase 60 U/L (0-40); Chloride 94 mmol/L (98-107); Potassium 6.0 mmol/L (3.5-5.1); Sodium 128 mmol/L (136-145)
[2025-05-28 15:09] LABS: Anion Gap 18.0 (5-19); Blood Urea Nitrogen 76 mg/dL (8-23); Calcium 10.1 mg/dL (8.5-10.5); Carbon Dioxide 22 mmol/L (22-29); Globulin 4.2 g/dL (1.3-4.6); Total Protein 7.8 g/dL (6.6-8.7)
[2025-05-28 15:12] LABS: Glucose 92 mg/dL (65-115); Osmolality Calculated 288 mOsm/kg (285-295); Thyroid Stimulating Hormone 8.67 uIU/mL (0.27-4.20)
--- NOTE | 2025-05-28 16:13 | W.ED.WEAKNES ---
HPI - Weakness General: Chief complaint: Weakness Stated complaint: weakness; hypotension Time Seen by Provider: 05/28/25 14:09 Source: patient and EMS Mode of arrival: EMS Limitations: no limitations History of Present Illness: 84-year-old male states he has been having generalized weakness patient is wheelchair and bedbound nonambulatory. Patient states has had some decreased oral intake and just feeling weak altogether. Has had some mild leg edema that is chronic in nature he denies any shortness of breath denies any chest pain Related Data Home Medications ?Medication ?Instructions ?Recorded ?Confirmed amiodarone 200 mg tablet 200 mg PO DAILY 10/11/20 05/19/25 magnesium oxide 400 mg (241.3 mg 400 mg PO DAILY 10/11/20 05/19/25 magnesium) tablet (MagOx) cholecalciferol (vitamin D3) 125 375 mcg PO DAILY 04/26/25 05/19/25 mcg (5,000 unit) tablet (Vitamin D3) apixaban 5 mg tablet (Eliquis) 5 mg PO BID 05/19/25 05/19/25 levothyroxine 100 mcg tablet 100 mcg PO QAM 05/19/25 05/19/25 Allergies Allergy/AdvReac Type Severity Reaction Status Date / Time No Known Allergies Allergy Unverified 12/13/20 13:43 [facility] ED PFSH: Medical History (Updated 05/28/25 @ 17:19 by Maribel Gary MD) Mitral regurgitation Atrial fibrillation Hypertension Hypothyroidism Peripheral vascular complications Peripheral artery insufficiency Endogenous hyperlipidemia Family History Other Hypertension Social History Alcohol intake: never Substance/Drug Use: never Household members: spouse Marital status: Physical Exam Const: COMMON NORMALS: patient oriented x3 HENMT: COMMON NORMALS: normocephalic and atraumatic HEAD & SCALP: normocephalic and atraumatic Eye: COMMON NORMALS: Equal, round and reactive pupils present and EOMs intact bilaterally PUPIL: Yes Equal, round and reactive pupils present Neck/C-Spine: COMMON NORMALS: full ROM and supple Chest: COMMONS NORMALS: normal inspection of the chest Resp: COMMON NORMALS: normal respiratory effort, No retractions, No use of accessory muscles and clear to auscultation bilaterally AUSCULTATION: clear to auscultation bilaterally Cardio: COMMON NORMALS: regular rate, regular rhythm and No murmurs present (Cardio) RATE: regular rate RHYTHM: regular rhythm GI: COMMON NORMALS: Normal to inspection, nondistended, normoactive bowel sounds present, Soft to palpation, non-tender and no masses PALPATION: Yes Soft to palpation Extremity: COMMON NORMALS: full ROM NARRATIVE EXTREMITY EXAM: Slight leg edema 1+ chronic wounds no signs of cellulitis Neuro: COMMON NORMALS: patient oriented x3, moves all extremities and no focal motor deficits Psych: COMMON NORMALS: mental status grossly normal, Normal thought process present and cooperative THOUGHT PROCESS: Normal thought process present Skin: COMMON NORMALS: no rashes or lesions noted NARRATIVE SKIN EXAM: Mild skin breakdown to coccyx area no wounds no cellulitis GENERAL SKIN EXAM: no rashes or lesions noted Course Vital Signs: Vital signs: Vital Signs Temperature 97.6 F 05/28/25 14:11 Pulse Rate 81 05/28/25 17:00 Respiratory Rate 18 05/28/25 14:46 Blood Pressure 121/67 05/28/25 17:30 Pulse Oximetry 95 05/28/25 17:00 Oxygen Delivery Me thod Room Air 05/28/25 17:00 MDM - Weakness Medical Decision Making 84-year-old male presents here with generalized weakness has been chronic in nature. Patient feels much improved here after IV fluids he has no signs of infection did have some mild hyperkalemia and hyponatremia that is chronic as well its improved here he is wanting to go home I feel he is stable for discharge at this time he is to follow-up with his PCP in 3 to 5 days have his labs rechecked return if worsening he understands agrees to plan Medical Records I reviewed the patient's medical records. Lab Data I reviewed the patient's lab results. 05/28/25 13:50 05/28/25 16:35 Laboratory Results WBC 6.61 10^3/uL (3.29-11.43) 05/28/25 13:50 RBC 3.21 10^6/uL (3.85-5.65) L 05/28/25 13:50 Hgb 10.50 g/dL (11.27-16.99) L 05/28/25 13:50 Hct 31.8 % (37-53) L 05/28/25 13:50 MCV 99.1 fl (82-101) 05/28/25 13:50 MCH 32.7 pg (27-33) 05/28/25 13:50 MCHC 33.0 g/dL (30-55) 05/28/25 13:50 RDW 14.8 % (12.1-15.1) 05/28/25 13:50 Plt Count 303 10^3/cmm (157-399) 05/28/25 13:50 MPV 9.3 fL (7.4-10.4) 05/28/25 13:50 Neut % (Auto) 77.4 % 05/28/25 13:50 Lymph % (Auto) 9.1 % 05/28/25 13:50 [place] % (Auto) 10.4 % 05/28/25 13:50 Eos % (Auto) 1.7 % 05/28/25 13:50 Baso % (Auto) 0.6 % 05/28/25 13:50 Neut # (Auto) 5.12 10^3/uL (1.8-7.7) 05/28/25 13:50 Lymph # (Auto) 0.6 10^3/uL (0.8-4.8) L 05/28/25 13:50 [place] # (Auto) 0.7 10^3/uL (0.2-0.9) 05/28/25 13:50 Eos # (Auto) 0.1 10^3/uL (0.0-0.8) 05/28/25 13:50 Baso # (Auto) 0.0 10^3/uL (0.0-0.1) 05/28/25 13:50 Nucleated RBC % (auto) 0 % 05/28/25 13:50 Nucleated RBCs # 0.0 /100WBC 05/28/25 13:50 Sodium 129 mmol/L (136-145) L 05/28/25 16:35 Potassium 5.9 mmol/L (3.5-5.1) H 05/28/25 16:35 Chloride 100 mmol/L (98-107) 05/28/25 16:35 Carbon Dioxide 19 mmol/L (22-29) L 05/28/25 16:35 Anion Gap 15.9 (5-19) 05/28/25 16:35 BUN 69 mg/dL (8-23) H 05/28/25 16:35 Creatinine 1.3 mg/dL (0.7-1.2) H 05/28/25 16:35 GFR Calculation Not Reportable 05/28/25 16:35 Glucose 92 mg/dL (65-115) 05/28/25 16:35 Calculated Osmolality 288 mOsm/kg (285-295) 05/28/25 16:35 Calcium 8.8 mg/dL (8.5-10.5) 05/28/25 16:35 Total Bilirubin 0.7 mg/dL (0.15-1.2) 05/28/25 13:50 AST 60 U/L (0-40) H 05/28/25 13:50 ALT 44 U/L (0-41) H 05/28/25 13:50 Alkaline Phosphatase 51 U/L (40-130) 05/28/25 13:50 Total Protein 7.8 g/dL (6.6-8.7) 05/28/25 13:50 Albumin 3.6 g/dL (3.5-5.2) 05/28/25 13:50 Globulin 4.2 g/dL (1.3-4.6) 05/28/25 13:50 TSH 8.67 uIU/mL (0.27-4.20) H 05/28/25 13:50 No radiology studies performed this visit Discharge Plan Discharge Patient Disposition: Home Clinical Impression: Generalized weakness, Hyperkalemia, Hyponatremia Condition: Stable Prescriptions: No Action magnesium oxide [MagOx] 400 mg (241.3 mg magnesium) tablet 400 mg PO DAILY amiodarone 200 mg tablet 200 mg PO DAILY cholecalciferol (vitamin D3) [Vitamin D3] 125 mcg (5,000 unit) Tablet 375 mcg PO DAILY levothyroxine 100 mcg tablet 100 mcg PO QAM Eliquis 5 mg tablet 5 mg PO BID Discharge Orders: Discharge ED (Routine); Ordered 05/28/25 Ordered By: Maribel Gary Referrals: Lucas Barrera MD [Primary Care Provider, Family Practice] - 4-7 days Discharge Diet: Advance as tolerated Discharge Activity: Resume usual activity Patient Instructions: Weakness (ED) Print Language: Turkish Coding Level of Care Code ED Clinic Physician for Chg Rick
[2025-05-28 17:03] LABS: Anion Gap 15.9 (5-19); Blood Urea Nitrogen 69 mg/dL (8-23); Calcium 8.8 mg/dL (8.5-10.5); Carbon Dioxide 19 mmol/L (22-29); Chloride 100 mmol/L (98-107); Glucose 92 mg/dL (65-115); Osmolality Calculated 288 mOsm/kg (285-295); Potassium 5.9 mmol/L (3.5-5.1); Sodium 129 mmol/L (136-145)
--- NOTE | 2025-05-28 18:15 | PC.NURSE ---
pt told nurse to take off all lines, vs equipment removed and iv removed per patient request.
--- NOTE | 2025-05-28 18:39 | PC.NURSE ---
Pt reports that he is bed bound, that pt is unable to stand and unable to ambulate. Pt states he has to have an ambulance ride home. This nurse asked pt if he needed anything while waiting for ems ride. Pt stated no. call light within reach.
== END 2025-05-28 20:17 | disposition home or self-care (01) ==
PROVIDERS: Emergency Provider Emergency Medicine; PCP Family Medicine
DX: R53.1 Weakness (principal); E87.5 Hyperkalemia; E87.1 Hypo-osmolality and hyponatremia; Z79.01 Long term (current) use of anticoagulants; I10 Essential (primary) hypertension
CPT/HCPCS: 36415; 80048; 80053; 84443; 85025; 96361; 96374; 96375; 99284; J2270; J2405; J7030; J7040